=== PATIENT | female | born 1930 | race Caucasian/White ===

== ENCOUNTER 2019-01-18 17:27 | Emergency (ER) | payer MEDICARE, BC ==
--- NOTE | 2019-01-18 18:10 | EDM.PDOC ---
ED HPI GENERAL MEDICAL PROBLEM - General Chief Complaint: Respiratory Problem Stated Complaint: COUGH, GURGLING Time Seen by Provider: 01/18/19 17:40 Source of Information: Reports: Patient History Limitations: Reports: No Limitations - History of Present Illness INITIAL COMMENTS - FREE TEXT/NARRATIVE: She comes into the emergency department with complaints of "gurgling sounds in the chest". Patient states that she's had a cough over the course of last 2 days. She lives at [facility] and nursing had told her that they heard some crackles when they were listening yesterday. Patient decided today that she wanted to get checked out. She denies any fever, chest pain, increased shortness of breath, or increasing swelling in the extremities. Patient does have exertional shortness of breath which is a long-standing history for her. She states that is still consistent but there is no resting shortness of breath or increase in her baseline shortness of breath with exertion. She states that she does have a nonproductive cough and denies any chest discomfort when coughing. Onset: Gradual Quality: Reports: Other Severity: Mild Improves with: Reports: None Worsens with: Reports: None Associated Symptoms: Reports: No Other Symptoms - Related Data Allergies Allergy/AdvReac Type Severity Reaction Status Date / Time aloe vera Allergy Itching Verified 01/18/19 17:53 amlodipine besylate Allergy Other Verified 01/18/19 17:53 [From Norvasc] Sulfa (Sulfonamide Allergy Airway Verified 01/18/19 17:53 Antibiotics) Tightness terazosin Allergy Edema Verified 01/18/19 17:53 lidocaine HCl AdvReac Hypotension Verified 01/18/19 17:53 [From Xylocaine] moexipril HCl [From Univasc] AdvReac Cough Verified 01/18/19 17:53 morphine AdvReac Hypotension Verified 01/18/19 17:53 Home Meds: Home Meds RX: Acetaminophen [Tylenol] 325 mg PO Q4H PRN 12/30/15 [History] RX: Allopurinol 150 mg PO DAILY 12/30/15 [History] RX: Aspirin [Adult Low Dose Aspirin EC] 81 mg PO DAILY 12/30/15 [History] RX: Calcium Carbonate/Vitamin D3 [Calcium 600 + Vit D Tablet] 1 tab PO DAILY 04/08 [History] RX: Cholecalciferol (Vitamin D3) [Vitamin D3] 2,000 unit PO DAILY 12/30/15 [ History] RX: Famotidine [Pepcid] 20 mg PO BEDTIME 12/30/15 [History] RX: Montelukast [Singulair] 10 mg PO DAILY 12/30/15 [History] RX: Nitroglycerin [Nitrostat] 0.4 mg SL ASDIRECTED PRN 12/30/15 [History] RX: Propylene Glycol/Peg 400 [Systane 0.3-0.4% Eye Drops] 1 drop EYEBOTH BID 04/08 [History] RX: Simvastatin 1 tab PO BEDTIME 12/30/15 [History] RX: chlordiazePOXIDE/Clidinium [Librax 5-2.5 MG] 1 cap PO BID PRN 12/30/15 [ History] RX: Acetaminophen [Tylenol Arthritis] 650 mg PO BEDTIME 02/13/16 [History] RX: Albuterol/Ipratropium [Combivent Respimat] 2 puff IH QID PRN 02/13/16 [ History] RX: Bimatoprost [LUMIGAN 0.01% Ophth Soln] 1 drop EYEBOTH BEDTIME 02/14/16 [ History] RX: Spironolactone [Aldactone] 12.5 mg PO DAILY #30 tablet 02/15/16 [Rx] RX: Losartan [Cozaar] 100 mg PO DAILY 08/04/18 [History] RX: Apixaban [Eliquis] 5 mg PO BID 08/18/18 [History] RX: Metoprolol Tartrate [Lopressor] 50 mg PO BID 08/18/18 [History] RX: Potassium Chloride [Klor-Con 10] 10 meq PO DAILY #30 tab.er 08/21/18 [Rx] Digoxin [Digox] 1 tab PO DAILY 01/18/19 [History] Fluticasone Propionate [Flovent HFA] 2 puff INH BID 01/18/19 [History] Glucosamine/D3/Boswellia Franci [Osteo Bi-Flex Caplet] 1 cap PO DAILY 01/18/19 [ History] RX: Bumetanide [Bumex] 1 mg PO BID@0700,1400 PRN 01/18/19 [History] RX: Loperamide [Imodium AD] 2 cap PO ASDIRECTED PRN MDD 8 caps 01/18/19 [History ] Past Medical History HEENT History: Reports: Impaired Vision, Macular Degeneration Cardiovascular History: Reports: Heart Failure, Hypertension, [place], SOB on Exertion Respiratory History: Reports: Asthma, Other (See Below) Other Respiratory History: hypoxic with sleep Gastrointestinal History: Reports: Irritable Bowel Syndrome Musculoskeletal History: Reports: Osteoarthritis Psychiatric History: Reports: Anxiety Oncologic (Cancer) History: Reports: Other (See Below) Other Oncologic History: on her nose Dermatologic History: Reports: Other (See Below) Other Dermatologic History: hx of basal cell - Past Surgical History HEENT Surgical History: Reports: Cataract Surgery Cardiovascular Surgical History: Reports: Percutaneous Transluminal Angioplasty GI Surgical History: Reports: Appendectomy Neurological Surgical History: Reports: Other (See Below) Other Neurological Surgeries/Procedures: Spine surgury 1976 Musculoskeletal Surgical History: Reports: Knee Replacement Social & Family History - Family History Family Medical History: Noncontributory - Caffeine Use Caffeine Use: Reports: Coffee ED ROS GENERAL - Review of Systems Review Of Systems: See Below Constitutional: Denies: Chills, Weakness, Fatigue, Diaphoresis, Decreased Appetite HEENT: Reports: No Symptoms Respiratory: Reports: Cough Cardiovascular: Reports: No Symptoms Endocrine: Reports: No Symptoms GI/Abdominal: Reports: No Symptoms : Reports: No Symptoms Musculoskeletal: Reports: No Symptoms Skin: Reports: No Symptoms Neurological: Reports: No Symptoms Psychiatric: Reports: No Symptoms Hematologic/Lymphatic: Reports: No Symptoms Immunologic: Reports: No Symptoms ED EXAM, GENERAL - Physical Exam Exam: See Below Exam Limited By: No Limitations General Appearance: Alert, WD/WN, No Apparent Distress Throat/Mouth: Normal Inspection Head: Atraumatic, Normocephalic Neck: Normal Inspection, Supple, Non-Tender Respiratory/Chest: No Respiratory Distress, Lungs Clear, Normal Breath Sounds, No Accessory Muscle Use, Chest Non-Tender Cardiovascular: Normal Peripheral Pulses, Regular Rate, Rhythm Extremities: Normal Inspection, Normal Range of Motion, Normal Capillary Refill Neurological: Alert, Oriented Skin Exam: Warm, Dry, Intact, Normal Color Course - Vital Signs Last Recorded V/S: Last Vital Signs Temp 37.0 C 01/18/19 17:50 Pulse 66 01/18/19 17:50 Resp 16 01/18/19 17:50 BP 149/76 H 01/18/19 17:50 Pulse Ox 98 01/18/19 17:50 - Orders/Labs/Meds Orders: Active Orders 24 hr Category Date Time Status Cardiac Monitoring [RC] . DIRECTED Care 01/18/19 18:06 Active EKG Documentation Completion [RC] STAT Care 01/18/19 18:05 Active Chest 1V Frontal [CR] Stat Exams 01/18/19 18:06 Taken Labs: Laboratory Tests 01/18/19 01/18/19 01/18/19 Range/Units 18:17 18:17 18:17 WBC 7.3 (4.0-10.0) x10^3/uL RBC 4.30 (4.00-5.50) x10^6/uL Hgb 11.9 L (12.0-16.0) g/dL Hct 39.5 (33.0-47.0) % MCV 91.9 D (78.0-93.0) fL MCH 27.7 (26.0-32.0) pg MCHC 30.1 L (32.0-36.0) g/dL RDW Coeff of [place] 14.7 (10.0-15.0) % Plt Count 275 (130-400) x10^3/uL Neut % (Auto) 59.5 (50.0-80.0) % Lymph % (Auto) 25.8 (25.0-50.0) % [place] % (Auto) 10.1 (2.0-11.0) % Eos % (Auto) 4.2 H (0.0-4.0) % Baso % (Auto) 0.4 (0.2-1.2) % Sodium 140 (136-145) mmol/L Potassium 4.0 (3.5-5.1) mmol/L Chloride 101 (98-107) mmol/L Carbon Dioxide 29 (21-32) mmol/L Anion Gap 14.0 (10-20) mmol/L BUN 21 H (7-18) mg/dL Creatinine 1.3 H (0.55-1.02) mg/dL Est Cr Clr Drug Dosing 29.65 mL/min Estimated GFR (MDRD) 39 Glucose 108 H (74-106) mg/dL Lactic Acid 2.3 H* (0.4-2.0) mmol/L Calcium 8.5 (8.5-10.1) mg/dL Corrected Calcium 9.22 (8.5-10.1) mg/dL Total Bilirubin 0.5 (0.2-1.0) mg/dL AST 16 (15-37) U/L ALT 17 (14-59) U/L Alkaline Phosphatase 129 H (46-116) U/L Creatine Kinase 99 (26-192) U/L Troponin I 0.028 (<=0.056) ng/mL NT-Pro-B Natriuret Pep 3570 H (<=450) pg/mL Total Protein 7.6 (6.4-8.2) g/dL Albumin 3.1 L (3.4-5.0) g/dL Globulin 4.5 Albumin/Globulin Ratio 0.69 Meds: Medications Discontinued Medications Generic Name Dose Route Start Last Admin Trade Name Freq PRN Reason Stop Dose Admin Spironolactone 12.5 mg 01/18/19 19:05 Aldactone PO 01/18/19 19:06 ONETIME ONE Departure - Departure Time of Disposition: 19:25 Disposition: Home, Self-Care 01 Condition: Good 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 rest 2. limit amount of liquids 3. increase your spironolactone to 25mg daily tomorrow and follow up with PCP on Sunday for exterminator termite adjustment if need be 4. Return if you develop SOB above your baseline or begin to have chest pain 5. Activity and diet as tolerated 6. Call with any questions or concerns - Problem List Review Problem List Initiated/Reviewed/Updated: Yes - My Orders Last 24 Hours: My Active Orders 01/18/19 18:05 EKG Documentation Completion [RC] STAT 01/18/19 18:06 Cardiac Monitoring [RC] . DIRECTED Chest 1V Frontal [CR] Stat - Assessment/Plan Last 24 Hours: My Active Orders 01/18/19 18:05 EKG Documentation Completion [RC] STAT 01/18/19 18:06 Cardiac Monitoring [RC] . DIRECTED Chest 1V Frontal [CR] Stat Assessment:: 1. cough 2. fluid overload Plan: 1. chest xray completed in ER- negative findings 2. labs completed in ER. 3. EKG completed in ER. -A. fib with mediation management on board 4. Patient does not want to be admitted into the hospital and wants to go back to the shelter. Will increase her dose of spironolactone and have her follow up with her PCP on Sunday for exterminator termite management. 5. Did discuss the risk of not being admitted and monitored for fluid overload. Pt is aware and would like to be discharged home. 6. All questions and concerns were addressed prior to discharge.
[2019-01-18 18:57] VITALS: BP 149/76
[2019-01-18] MEDS ORDERED: Spironolactone 25 MG Tab PO ONE (19:05)
--- NOTE | 2019-01-19 10:09 | CR ---
[id number] RAD/RAD Chest PA or AP 1V EXAM: RAD Chest PA or AP 1V INDICATION: SHORTNESS OF BREATH COMPARISON: 08/18/2018. DISCUSSION: Cardiomediastinal silhouette is increased in size and contour. No infiltrate, effusion, pneumothorax, or edema. Pulmonary hyperinflation. IMPRESSION: No acute cardiopulmonary abnormality. Ángel Cummings DO 01/19/19 1008 Thank you for allowing us to participate in the care of your patient.
== END 2019-01-18 19:30 | disposition home or self-care (01) ==
LOC: SUPCPDRO 17:27 → VM.ED 17:27
DX: E87.79 Other fluid overload (principal); Q24.9 Congenital malformation of heart, unspecified; I11.0 Hypertensive heart disease with heart failure; I50.9 Heart failure, unspecified; M19.90 Unspecified osteoarthritis, unspecified site; Z90.49 Acquired absence of other specified parts of digestive tract; Z98.49 Cataract extraction status, unspecified eye; Z88.2 Allergy status to sulfonamides; Z88.5 Allergy status to narcotic agent; Z88.8 Allergy status to other drugs, medicaments and biological substances; Z79.82 Long term (current) use of aspirin; Z79.899 Other long term (current) drug therapy
CPT/HCPCS: 36415; 71045; 80053; 82550; 83605; 83880; 84484; 85025; 93005; 99284; A9270

== ENCOUNTER 2019-02-15 15:58 | Emergency (ER) | payer MEDICARE, BC ==
[2019-02-15] MEDS ORDERED: Take Home: Phenazopyridine 95 MG Tab, 4 Tab Pack ONE (16:13)
--- NOTE | 2019-02-15 16:28 | EDM.PDOC ---
ED HPI GENERAL MEDICAL PROBLEM - General Stated Complaint: UNABLE TO URINATE Time Seen by Provider: 02/15/19 15:58 Source of Information: Reports: Patient History Limitations: Reports: No Limitations - History of Present Illness INITIAL COMMENTS - FREE TEXT/NARRATIVE: Pt. presents to ER with complaints of dysuria. She is currently on Macrobid for UTI (is on her second dose of a 5 day supply). She is concerned because she is continuing to experience frequency, dysuria, and urgency. She states that the symptoms have not gotten any worse, but they are not going away. Denies any lightheadedness, chest pain, shortness of breath, weakness, lightheadedness, or abdominal pain. Her only other complaint is that of some mild low back pain. Onset Date: 02/14/19 - Related Data Allergies Allergy/AdvReac Type Severity Reaction Status Date / Time aloe vera Allergy Itching Verified 01/18/19 17:53 amlodipine besylate Allergy Other Verified 01/18/19 17:53 [From Norvasc] Sulfa (Sulfonamide Allergy Airway Verified 01/18/19 17:53 Antibiotics) Tightness terazosin Allergy Edema Verified 01/18/19 17:53 lidocaine HCl AdvReac Hypotension Verified 01/18/19 17:53 [From Xylocaine] moexipril HCl [From Univasc] AdvReac Cough Verified 01/18/19 17:53 morphine AdvReac Hypotension Verified 01/18/19 17:53 Home Meds: Home Meds Acetaminophen [Tylenol] 325 mg PO Q4H PRN 12/30/15 [History] Allopurinol 150 mg PO DAILY 12/30/15 [History] Aspirin [Adult Low Dose Aspirin EC] 81 mg PO DAILY 12/30/15 [History] Calcium Carbonate/Vitamin D3 [Calcium 600 + Vit D Tablet] 1 tab PO DAILY [History] Cholecalciferol (Vitamin D3) [Vitamin D3] 2,000 unit PO DAILY 12/30/15 [History] Famotidine [Pepcid] 20 mg PO BEDTIME 12/30/15 [History] Montelukast [Singulair] 10 mg PO DAILY 12/30/15 [History] Nitroglycerin [Nitrostat] 0.4 mg SL ASDIRECTED PRN 12/30/15 [History] Propylene Glycol/Peg 400 [Systane 0.3-0.4% Eye Drops] 1 drop EYEBOTH BID [History] Simvastatin 1 tab PO BEDTIME 12/30/15 [History] chlordiazePOXIDE/Clidinium [Librax 5-2.5 MG] 1 cap PO BID PRN 12/30/15 [History] Acetaminophen [Tylenol Arthritis] 650 mg PO BEDTIME 02/13/16 [History] Albuterol/Ipratropium [Combivent Respimat] 2 puff IH QID PRN 02/13/16 [History] Bimatoprost [LUMIGAN 0.01% Ophth Soln] 1 drop EYEBOTH BEDTIME 02/14/16 [History] Spironolactone [Aldactone] 12.5 mg PO DAILY #30 tablet 02/15/16 [Rx] Losartan [Cozaar] 100 mg PO DAILY 08/04/18 [History] Apixaban [Eliquis] 5 mg PO BID 08/18/18 [History] Metoprolol Tartrate [Lopressor] 50 mg PO BID 08/18/18 [History] Potassium Chloride [Klor-Con 10] 10 meq PO DAILY #30 tab.er 08/21/18 [Rx] Bumetanide [Bumex] 1 mg PO BID@0700,1400 PRN 01/18/19 [History] Digoxin [Digox] 1 tab PO DAILY 01/18/19 [History] Fluticasone Propionate [Flovent HFA] 2 puff INH BID 01/18/19 [History] Glucosamine/D3/Boswellia Franci [Osteo Bi-Flex Caplet] 1 cap PO DAILY 01/18/19 [ History] Loperamide [Imodium AD] 2 cap PO ASDIRECTED PRN MDD 8 caps 01/18/19 [History] Past Medical History HEENT History: Reports: Impaired Vision, Macular Degeneration Cardiovascular History: Reports: Heart Failure, Hypertension, [place], SOB on Exertion Respiratory History: Reports: Asthma, Other (See Below) Other Respiratory History: hypoxic with sleep Gastrointestinal History: Reports: Irritable Bowel Syndrome Musculoskeletal History: Reports: Osteoarthritis Psychiatric History: Reports: Anxiety Oncologic (Cancer) History: Reports: Other (See Below) Other Oncologic History: on her nose Dermatologic History: Reports: Other (See Below) Other Dermatologic History: hx of basal cell - Past Surgical History HEENT Surgical History: Reports: Cataract Surgery Cardiovascular Surgical History: Reports: Percutaneous Transluminal Angioplasty GI Surgical History: Reports: Appendectomy Neurological Surgical History: Reports: Other (See Below) Other Neurological Surgeries/Procedures: Spine surgury 1977 Musculoskeletal Surgical History: Reports: Knee Replacement Social & Family History - Family History Family Medical History: Noncontributory - Caffeine Use Caffeine Use: Reports: Coffee ED ROS GENERAL - Review of Systems Review Of Systems: See Below Constitutional: Reports: No Symptoms HEENT: Reports: No Symptoms Respiratory: Reports: No Symptoms Cardiovascular: Reports: No Symptoms Endocrine: Reports: No Symptoms GI/Abdominal: Reports: No Symptoms : Reports: Dysuria, Frequency, Urgency Musculoskeletal: Reports: No Symptoms Skin: Reports: No Symptoms Neurological: Reports: No Symptoms Psychiatric: Reports: No Symptoms Hematologic/Lymphatic: Reports: No Symptoms Immunologic: Reports: No Symptoms ED EXAM, GENERAL - Physical Exam Exam: See Below Exam Limited By: No Limitations General Appearance: Alert, WD/WN, No Apparent Distress Peripheral Pulses: 3+: Radial (L) GI/Abdominal: Soft, Non-Tender, No Mass (Female) Exam: Deferred Rectal (Female) Exam: Deferred Back Exam: Normal Inspection, Full Range of Motion Neurological: Alert, Oriented, CN II-XII Intact, Normal Cognition, Normal Reflexes, No Motor/Sensory Deficits Skin Exam: Warm, Dry, Intact Course - Orders/Labs/Meds Orders: Active Orders 24 hr Category Date Time Status Bladder Scan [RC] ASDIRECTED Care 02/15/19 16:00 Active Meds: Medications Discontinued Medications Generic Name Dose Route Start Last Admin Trade Name [place] PRN Reason Stop Dose Admin Phenazopyridine HCl 2 packet 02/15/19 16:13 Take Home: Phenazopyridine, 4 Tab Pack .XX 02/15/19 16:14 ONETIME ONE - Re-Assessments/Exams Free Text/Narrative Re-Assessment/Exam: 02/15/19 16:29 Bladder scan showed only 50 ml of urine in bladder. Departure - Departure Time of Disposition: 16:29 Disposition: Home, Self-Care 01 Clinical Impression: UTI (urinary tract infection) - Discharge Information Instructions: Urinary Tract Infection, Adult, Dysuria Referrals: Beba Anderson, [Primary Care Provider] - Additional Instructions: Continue with the macrobid Start pyridium 100mg three times daily. You only need to take this until Sunday morning, but that time the antibiotic will be working. Return to ER if your symptoms aren't gradually improving. - Problem List Review Problem List Initiated/Reviewed/Updated: Yes - My Orders Last 24 Hours: My Active Orders 02/15/19 16:00 Bladder Scan [RC] ASDIRECTED - Assessment/Plan Last 24 Hours: My Active Orders 02/15/19 16:00 Bladder Scan [RC] ASDIRECTED Plan: Continue with the macrobid Start pyridium 100mg three times daily. You only need to take this until Sunday, but that time the antibiotic will be working. Return to ER if your symptoms aren't gradually improving.
[2019-02-15 17:11] VITALS: BP 141/45
== END 2019-02-15 16:35 | disposition home or self-care (01) ==
LOC: VM.ED 15:58
DX: N39.0 Urinary tract infection, site not specified (principal); I11.0 Hypertensive heart disease with heart failure; I50.9 Heart failure, unspecified; F41.9 Anxiety disorder, unspecified; Z79.82 Long term (current) use of aspirin; Z79.899 Other long term (current) drug therapy; Z88.2 Allergy status to sulfonamides; Z88.5 Allergy status to narcotic agent; Z88.8 Allergy status to other drugs, medicaments and biological substances; Z91.09 Other allergy status, other than to drugs and biological substances
CPT/HCPCS: 51798; 99283; A9270

== ENCOUNTER 2019-05-29 07:04 | Inpatient (IN) | payer MEDICARE, BC ==
[2019-05-29] MEDS ORDERED: Sodium Chloride 0.9% 10 ML Syringe FLUSH PRN (07:26)
--- NOTE | 2019-05-29 07:37 | EDM.PDOC ---
ED HPI GENERAL MEDICAL PROBLEM - General Stated Complaint: DISTRESSED BREATHING Time Seen by Provider: 05/29/19 07:20 Source of Information: Reports: Patient - History of Present Illness INITIAL COMMENTS - FREE TEXT/NARRATIVE: Pt presents with c/o increased work of breathing started at 0300 this am. Pt with long history of COPD / CHF /A fib. Pt is resting in no distress at this time. Onset: Today Improves with: Reports: None Worsens with: Reports: None Associated Symptoms: Reports: Shortness of Breath - Related Data Allergies Allergy/AdvReac Type Severity Reaction Status Date / Time aloe vera Allergy Itching Verified 05/29/19 09:58 amlodipine besylate Allergy Other Verified 05/29/19 09:58 [From Norvasc] Sulfa (Sulfonamide Allergy Airway Verified 05/29/19 09:58 Antibiotics) Tightness terazosin Allergy Edema Verified 05/29/19 09:58 lidocaine HCl AdvReac Hypotension Verified 05/29/19 09:58 [From Xylocaine] moexipril HCl [From Univasc] AdvReac Cough Verified 05/29/19 09:58 morphine AdvReac Hypotension Verified 05/29/19 09:58 Home Meds: Home Meds Acetaminophen [Tylenol] 325 mg PO Q4H PRN 12/30/15 [History] Allopurinol 150 mg PO DAILY 12/30/15 [History] Aspirin [Adult Low Dose Aspirin EC] 81 mg PO DAILY 12/30/15 [History] Calcium Carbonate/Vitamin D3 [Calcium 600 + Vit D Tablet] 1 tab PO DAILY [History] Famotidine [Pepcid] 20 mg PO BEDTIME 12/30/15 [History] Montelukast [Singulair] 10 mg PO DAILY 12/30/15 [History] Nitroglycerin [Nitrostat] 0.4 mg SL ASDIRECTED PRN 12/30/15 [History] Propylene Glycol/Peg 400 [Systane 0.3-0.4% Eye Drops] 1 drop EYEBOTH BID [History] Simvastatin 20 mg PO BEDTIME 12/30/15 [History] Acetaminophen [Tylenol Arthritis] 650 mg PO BEDTIME 02/13/16 [History] Albuterol/Ipratropium [Combivent Respimat] 2 puff IH QID PRN 02/13/16 [History] Bimatoprost [LUMIGAN 0.01% Ophth Soln] 1 drop EYEBOTH BEDTIME 02/14/16 [History] Spironolactone [Aldactone] 12.5 mg PO DAILY #30 tablet 02/15/16 [Rx] Losartan [Cozaar] 100 mg PO DAILY 08/04/18 [History] Apixaban [Eliquis] 5 mg PO BID 08/18/18 [History] Metoprolol Tartrate [Lopressor] 50 mg PO BID 08/18/18 [History] Potassium Chloride [Klor-Con 10] 10 meq PO DAILY #30 tab.er 08/21/18 [Rx] Bumetanide [Bumex] 1 mg PO BID@0700,1400 PRN 01/18/19 [History] Digoxin [Digox] 0.125 mg PO DAILY 01/18/19 [History] Fluticasone Propionate [Flovent HFA] 2 puff INH BID 01/18/19 [History] Glucosamine/D3/Boswellia Franci [Osteo Bi-Flex Caplet] 1 cap PO DAILY 01/18/19 [ History] Loperamide [Imodium AD] 2 cap PO ASDIRECTED PRN MDD 8 caps 01/18/19 [History] Cholecalciferol (Vitamin D3) [Vitamin D3] 2,000 unit PO DAILY 05/29/19 [History] guaiFENesin [Mucinex] 600 mg PO BID PRN 05/29/19 [History] Past Medical History HEENT History: Reports: Impaired Vision, Macular Degeneration Cardiovascular History: Reports: Heart Failure, Hypertension, NE, SOB on Exertion Respiratory History: Reports: Asthma, Other (See Below) Other Respiratory History: hypoxic with sleep Gastrointestinal History: Reports: Irritable Bowel Syndrome Musculoskeletal History: Reports: Osteoarthritis Psychiatric History: Reports: Anxiety Oncologic (Cancer) History: Reports: Other (See Below) Other Oncologic History: on her nose Dermatologic History: Reports: Other (See Below) Other Dermatologic History: hx of basal cell - Past Surgical History HEENT Surgical History: Reports: Cataract Surgery Cardiovascular Surgical History: Reports: Percutaneous Transluminal Angioplasty GI Surgical History: Reports: Appendectomy Neurological Surgical History: Reports: Other (See Below) Other Neurological Surgeries/Procedures: Spine surgury 1976 Musculoskeletal Surgical History: Reports: Knee Replacement Social & Family History - Family History Family Medical History: Noncontributory - Caffeine Use Caffeine Use: Reports: Coffee ED ROS GENERAL - Review of Systems Review Of Systems: See Below Constitutional: Reports: No Symptoms HEENT: Reports: No Symptoms Respiratory: Reports: Shortness of Breath, Other (fine crackles in the base bilat ) Cardiovascular: Reports: No Symptoms Endocrine: Reports: No Symptoms GI/Abdominal: Reports: No Symptoms : Reports: No Symptoms Musculoskeletal: Reports: No Symptoms Skin: Reports: No Symptoms ED EXAM, GENERAL - Physical Exam Exam: See Below Free Text/Narrative:: Pt presents to the er in no acute distress, elevated RR increased work of breathing noted. fine crackles in the base bilat noted on exam, labs noted elevated bnp, ekg, A fiv with pvc, chest x ray noted pulmonary congestion with small pleural effusions bilaterally. Pt given 80 mg solumedrol and 20 mg lasix in the er. WOB improved. pt states she is able to speak in full sentences after medication. General Appearance: Alert, WD/WN, Mild Distress Eye Exam: Bilateral Eye: Normal Inspection Ears: Normal External Exam, Normal Canal Nose: Normal Inspection Head: Atraumatic, Normocephalic Neck: Normal Inspection, Supple, Non-Tender Respiratory/Chest: Crackles, Accessory Muscle Use, Other (fine crackles in the base bilat ) Cardiovascular: Normal Peripheral Pulses, Other (eks noted a fib rate of 86 ) GI/Abdominal: Normal Bowel Sounds, Soft, Non-Tender Neurological: Alert Psychiatric: Normal Affect, Normal Mood Skin Exam: Warm, Dry, Intact Course - Vital Signs Last Recorded V/S: Last Vital Signs Temp 37.0 C 05/29/19 10:07 Pulse 86 05/29/19 10:07 Resp 24 H 05/29/19 10:07 BP 135/54 L 05/29/19 10:07 Pulse Ox 86 L 05/29/19 10:07 - Orders/Labs/Meds Orders: Active Orders 24 hr Category Date Time Status Admission Status [Patient Status] [ADT] Routine ADT 05/29/19 10:19 Active Cardiac Monitoring [RC] . DIRECTED Care 05/29/19 10:19 Active EKG Documentation Completion [RC] STAT Care 05/29/19 07:26 Active Supplemental O2 [Oxygen Therapy, ED] [RC] ASDIRECTED Care 05/29/19 07:26 Active Sodium Chloride 0.9% [Saline Flush] Med 05/29/19 07:26 Active 10 ml FLUSH ASDIRECTED PRN Peripheral IV Insertion Adult [OM.PC] Routine Oth 05/29/19 07:26 Ordered Medication Orders Sodium Chloride (Saline Flush) 10 ml FLUSH ASDIRECTED PRN PRN Reason: Keep Vein Open Labs: Laboratory Tests 05/29/19 05/29/19 05/29/19 Range/Units 07:30 07:30 07:30 WBC 7.2 (4.0-10.0) x10^3/uL RBC 4.21 (4.00-5.50) x10^6/uL Hgb 11.8 L (12.0-16.0) g/dL Hct 37.7 (33.0-47.0) % MCV 89.5 (78.0-93.0) fL MCH 28.0 (26.0-32.0) pg MCHC 31.3 L (32.0-36.0) g/dL RDW Coeff of [place] 15.0 (10.0-15.0) % Plt Count 240 (130-400) x10^3/uL Neut % (Auto) 59.9 (50.0-80.0) % Lymph % (Auto) 26.2 (25.0-50.0) % [place] % (Auto) 8.8 (2.0-11.0) % Eos % (Auto) 4.7 H (0.0-4.0) % Baso % (Auto) 0.4 (0.2-1.2) % Sodium 139 (136-145) mmol/L Potassium 4.1 (3.5-5.1) mmol/L Chloride 103 (98-107) mmol/L Carbon Dioxide 26 (21-32) mmol/L Anion Gap 14.1 (10-20) mmol/L BUN 16 (7-18) mg/dL Creatinine 1.1 H (0.55-1.02) mg/dL Est Cr Clr Drug Dosing TNP Estimated GFR (MDRD) 47 Glucose 118 H (74-106) mg/dL Calcium 8.6 (8.5-10.1) mg/dL Troponin I < 0.017 (<=0.056) ng/mL NT-Pro-B Natriuret Pep 4238 H (<=450) pg/mL Meds: Medications Generic Name Dose Route Start Last Admin Trade Name Freq PRN Reason Stop Dose Admin Sodium Chloride 10 ml 05/29/19 07:26 Saline Flush FLUSH ASDIRECTED PRN Keep Vein Open Discontinued Medications Generic Name Dose Route Start Last Admin Trade Name Freq PRN Reason Stop Dose Admin Furosemide 20 mg 05/29/19 09:26 05/29/19 09:47 Lasix IV 05/29/19 09:27 20 mg ONETIME ONE Administration Methylprednisolone Sodium Succinate 80 mg 05/29/19 08:18 05/29/19 09:44 Solu-Medrol IVPUSH 05/29/19 08:19 80 mg ONETIME ONE Administration Departure - Departure Time of Disposition: 10:28 Disposition: Admitted As Inpatient 67 Condition: Good Clinical Impression: CHF (congestive heart failure) Qualifiers: Qualified Code(s): I50.9 - Heart failure, unspecified - Discharge Information - My Orders Last 24 Hours: My Active Orders 05/29/19 07:26 EKG Documentation Completion [RC] STAT Supplemental O2 [Oxygen Therapy, ED] [RC] ASDIRECTED Sodium Chloride 0.9% [Saline Flush] 10 ml FLUSH ASDIRECTED PRN Peripheral IV Insertion Adult [OM.PC] Routine 05/29/19 10:19 Admission Status [Patient Status] [ADT] Routine Cardiac Monitoring [RC] . DIRECTED - Assessment/Plan Last 24 Hours: My Active Orders 05/29/19 07:26 EKG Documentation Completion [RC] STAT Supplemental O2 [Oxygen Therapy, ED] [RC] ASDIRECTED Sodium Chloride 0.9% [Saline Flush] 10 ml FLUSH ASDIRECTED PRN Peripheral IV Insertion Adult [OM.PC] Routine 05/29/19 10:19 Admission Status [Patient Status] [ADT] Routine Cardiac Monitoring [RC] . DIRECTED
[2019-05-29 08:07] LABS: ANION GAP 14.1 mmol/L (10-20); CHLORIDE,CL 103 mmol/L (98-107); SODIUM,NA 139 mmol/L (136-145)
[2019-05-29] MEDS ORDERED: methylPREDNISolone Sodium Succinate 125 MG/2 ML SDV IVPUSH ONE (08:18)
--- NOTE | 2019-05-29 08:57 | CR ---
[id number] RAD/RAD Chest PA And Lateral EXAM: RAD Chest PA And Lateral CLINICAL DATA: SHORTNESS OF BREATH COMPARISON: CORRELATION IS MADE WITH THE EXAM OF JANUARY 18, 2019 FINDINGS: There appears to be moderate pulmonary edema The cardiomediastinal contour is stable There are small bilateral effusions There is heavy carotid calcification IMPRESSION: MODERATE CHF Lex Muniz MD 05/29/19 0855 Thank you for allowing us to participate in the care of your patient.
[2019-05-29] MEDS ORDERED: Furosemide 20 MG/2 ML VIAL IV ONE (09:26)
[2019-05-29] MEDS: Furosemide 20 MG/2 ML VIAL IV SCH ×2 (12:06→15:38)
[2019-05-29] MEDS ORDERED: Nitroglycerin 0.4 MG Tab.SL SL PRN (16:28)
[2019-05-29] MEDS ORDERED: Albuterol/Ipratropium 3.0-0.5 MG/3 ML Neb Soln INH PRN (16:45)
[2019-05-29] MEDS: Latanoprost 0.005% Ophth Soln 2.5 ML Bottle EYEBOTH SCH (19:22)
[2019-05-29] MEDS: Acetaminophen 650 MG Tab.ER PO SCH (19:23)
[2019-05-29] MEDS: Apixaban 2.5 MG Tab PO SCH (19:23)
[2019-05-29] MEDS: Mometasone Furoate Powder 220 MCG/Puff 14 Dose Inhaler INH SCH (19:23)
[2019-05-29] MEDS: Famotidine 20 MG Tab PO SCH (19:23)
[2019-05-29] MEDS: Simvastatin 20 MG Tab PO SCH (19:24)
[2019-05-29] MEDS: Metoprolol Tartrate 50 MG Tab PO SCH (19:24)
[2019-05-29] MEDS: Dextran 70/Hypromellose/PF Ophth Soln 0.9 ML UD EYEBOTH SCH (19:24)
--- NOTE | 2019-05-29 23:27 | HP ---
CHIEF COMPLAINT: Shortness of breath. HISTORY OF PRESENT ILLNESS: This is an 88-year-old female with known history of heart failure, diabetes, hypertension, coronary artery disease, EF 45% in 07/2018, and atrial fibrillation, who comes into the ER this morning after waking up during the night and feeling more short of breath. She got up to use the bathroom. She actually had reported that her weight had been going up and she had more breathing trouble in the last 3 days. It was 151 last night and 153 this morning. She at no time had any chest pain. She is already on 3 L of oxygen at night, but none during the day. She also has a history of asthma but has not been coughing. No fever, no chills. She states that she just sort of "filled with fluid." This has happened to her before. She is on Bumex 0.5 mg daily. She has not taken any extra doses. She was given 20 mg of IV Lasix in the ER; it is working quite well. She is urinating quite a bit. She also got some Solu-Medrol. ALLERGIES: Her allergy list includes aloe vera; morphine, feels like blood pressure dropped; Norvasc, causes leg swelling, morphine, low BP, sulfa, terazosin, Univasc, cough; and Xylocaine caused low blood pressure. MEDICATIONS: Her medication list is reviewed. She is at [facility]. Losartan 100 mg daily, allopurinol 150 daily, Singulair 10 mg daily, Aldactone 12.5 daily, MiraLAX 1 packet daily, but cut back to every other day of diarrhea, Bumex 0.5 at 7 a.m. and 0.5 in the afternoon if needed, Flovent, digoxin 125 daily, Zocor 20 mg at bedtime, Imodium 2 mg after loose stools, Pepcid 20 mg in the evening, aspirin 81 mg daily, vitamin D 2000 units daily, Osteo Bi-Flex, Tylenol, nitroglycerin p.r.n., potassium 10 mEq daily, Eliquis 5 mg twice daily, Lopressor 50 mg b.i.d., Combivent inhaler as needed, [place] eyedrops, Systane, and calcium and vitamin D. PAST MEDICAL HISTORY: Includes diastolic heart failure, EF 45%, 07/2018, admission to [place] at that time. The patient presented also with atrial fibrillation at that time and has been anticoagulated with Eliquis. 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 PAST SURGICAL HISTORY: That knee replacement as stated above. She has also had eye surgeries, tonsillectomy, spine surgery, cataract surgery, appendectomy. SOCIAL HISTORY: The patient is . She lives at assisted living. She has many children who live locally. She does not smoke or drink. FAMILY HISTORY: Both parents are . Both parents had heart failure. REVIEW OF SYSTEMS: General: She has not had any fever or chills. HEENT: No trouble swallowing. Cardiac: No chest pain. No palpitations. Respiratory: As stated in HPI. Otherwise, all systems reviewed and found to be negative unless otherwise stated. PHYSICAL EXAMINATION: Vital Signs: Include a weight of 67.6 up on the floor, 68.9 in the ER; temperature 98.1; pulse 95; blood pressure 138/87; respiratory rate 20; and O2 of 96% on 2 L, but 86% on room air. General: She is in no acute distress. Heart: Irregularly irregular with murmur. Lungs: Lung sounds are decreased with crackles in both bases. Abdomen: Positive bowel sounds. Soft and nontender. Extremities: Warm and dry. No edema. Mental Status: She is alert. She is orientated x3. LABORATORY DATA: Lab work did show white count normal at 7.2, hemoglobin 11.8, and platelets 240. Sodium 139, potassium 4.1, chloride 103, bicarb 26, BUN 16, creatinine 1.1, glucose 118, magnesium 1.8. Troponin negative. ProBNP 4238. EKG showed atrial fibrillation, left axis deviation, poor R-wave progression, all present on her previous EKG. Chest x-ray showed pulmonary edema. ASSESSMENT AND PLAN: 1. Acute on chronic diastolic heart failure exacerbation with known ejection fraction of 45% in 07/2018. 2. Dyspnea, probably due to heart failure as well as pulmonary hypertension. She is fully anticoagulated. I do not feel she has a deep venous thrombosis or pulmonary embolism. We will repeat her troponin. 3. Coronary artery disease. She has been on aspirin without any chest pain. I am going to hold ASA currently as she is also on Eliquis. If no bleeding problems, we will likely discharge her on it. 4. Asthma, moderate, persistent. I do not feel she is having an exacerbation. She already got 80 of Solu-Medrol. No further steroids ordered. 5. Diet-controlled diabetes. We will do q.i.d. Accu-Chek just due to getting the Solu-Medrol. We will discontinue them if they are acceptable. 6. For all her other chronic comorbidities, we will continue her home medications. 7. For deep venous thrombosis prophylaxis, she is therapeutically anticoagulated. We will repeat lab work tomorrow. TU: 05/29/2019 16:34:42 MODL: 05/29/2019 23:23:30 /[id number] MTDD
[2019-05-30 07:13] LABS: ANION GAP 13.8 mmol/L (10-20)
[2019-05-30] MEDS: Losartan 50 MG Tab PO SCH (08:06)
[2019-05-30] MEDS: Dextran 70/Hypromellose/PF Ophth Soln 0.9 ML UD EYEBOTH SCH ×2 (08:06→19:47)
[2019-05-30] MEDS: Metoprolol Tartrate 50 MG Tab PO SCH ×2 (08:08→19:53)
[2019-05-30] MEDS: Spironolactone 25 MG Tab PO SCH (08:09)
[2019-05-30] MEDS: Montelukast 10 MG Tab PO SCH (08:10)
[2019-05-30] MEDS: Digoxin 125 MCG Tab PO SCH (08:10)
[2019-05-30] MEDS: Potassium Chloride 10 MEQ Tab.ER PO SCH (08:11)
[2019-05-30] MEDS: Apixaban 2.5 MG Tab PO SCH ×2 (08:12→19:47)
[2019-05-30] MEDS: Cholecalciferol (Vitamin D3) 25 MCG Tab PO SCH (08:12)
[2019-05-30] MEDS: Allopurinol 300 MG Tab PO SCH (08:12)
[2019-05-30] MEDS: Calcium Carbonate/Vitamin D3 1250 MG-200 Unit Tab PO SCH (08:12)
[2019-05-30] MEDS: Furosemide 20 MG/2 ML VIAL IV SCH (08:13)
[2019-05-30] MEDS: Mometasone Furoate Powder 220 MCG/Puff 14 Dose Inhaler INH SCH ×2 (08:14→19:48)
--- NOTE | 2019-05-30 16:40 | PN ---
Progress Note for PARAG DAVIS Date: 05/30/2019 Room #: VM.204 SUBJECTIVE: This is hospital day #2 on an 88-year-old admitted with acute-on- chronic diastolic heart failure exacerbation. Her fluid is down 1.7 L. She is breathing much better, but when she got up to go to the bathroom, even with help, her legs felt weak. She is not having any chest pain. She has been having some faster heart rates on telemetry going up into the 140s even, but that is quite brief, but consistently running 100 to 110. She otherwise does use oxygen at night. She is down to 1 L now during the day, but it does not use oxygen at home during the day. She did receive a total of 60 mg of IV Lasix yesterday. She got her IV Lasix this morning. OBJECTIVE: Vital Signs: Her temperature is 97.8, pulse 97, blood pressure 139/68, weight 67.7 kg, O2 of 96% on 1 L, respiratory rate 16. General: She is in no acute distress. Heart: Irregularly irregular with murmur noted. Lungs: Lung sounds are much more clear to auscultation today. No wheezing appreciated. Abdomen: Positive bowel sounds. Soft, nondistended, nontender. Extremities: Warm and dry. No edema appreciated. Mental Status: She is alert. She is orientated x3. LABORATORY DATA: Lab work reviewed. White count normal 5.8, hemoglobin 11.1, platelets 247. Sodium 139, potassium 3.8, chloride 108, bicarb 28, BUN 27, creatinine 1.3. Glucose 145, high reading was 235. Troponin negative x2. ASSESSMENT: 1. [id number]-ly-[id number] diastolic heart failure exacerbation. EF 45%, 07/2018, improving. We will hold off on any further IV Lasix. Repeat lab work tomorrow. 2. Dyspnea, likely multifactorial. This has improved. 3. Leg weakness. The patient probably just has not adjusted to her diuresis. We will get her up and working with therapies. 4. Coronary artery disease. She has not had any chest pain. 5. Atrial fibrillation with rapid ventricular response. We will continue to monitor with telemetry. She is on digoxin and a beta-serenity. I am going to hold off on making any changes due to lower blood pressures. 6. Asthma, moderate, persistent. She does not require any further steroids. 7. Diet-controlled diabetes. Blood sugars are now improved. We will stop Accu-Cheks. 8. Deep vein thrombosis prophylaxis. She is on therapeutic anticoagulation for her atrial fibrillation. PLAN: At this point, the patient will continue to be on acute cares with telemetry monitoring. We will repeat lab work in the morning as her creatinine did go up slightly to 1.3. Anticipate she will need at least another night and potentially even swing bed. MKA: 05/30/2019 15:51:00 MODL: 05/30/2019 16:36:17 /[id number]
[2019-05-30] MEDS: Latanoprost 0.005% Ophth Soln 2.5 ML Bottle EYEBOTH SCH (19:46)
[2019-05-30] MEDS: Acetaminophen 325 MG Tab PO PRN (19:47)
[2019-05-30] MEDS: Simvastatin 20 MG Tab PO SCH (19:47)
[2019-05-30] MEDS: Famotidine 20 MG Tab PO SCH (19:47)
[2019-05-30] MEDS: Acetaminophen 650 MG Tab.ER PO SCH (19:56)
[2019-05-31] MEDS: Acetaminophen 325 MG Tab PO PRN (05:34)
[2019-05-31] MEDS: Apixaban 2.5 MG Tab PO SCH ×2 (07:37→20:20)
[2019-05-31] MEDS: Potassium Chloride 10 MEQ Tab.ER PO SCH ×3 (07:38→20:21)
[2019-05-31] MEDS: Metoprolol Tartrate 50 MG Tab PO SCH (07:38)
[2019-05-31] MEDS: Digoxin 125 MCG Tab PO SCH ×2 (07:38→11:43)
[2019-05-31] MEDS: Cholecalciferol (Vitamin D3) 25 MCG Tab PO SCH (07:38)
[2019-05-31] MEDS: Spironolactone 25 MG Tab PO SCH (07:40)
[2019-05-31] MEDS: Montelukast 10 MG Tab PO SCH (07:40)
[2019-05-31] MEDS: Losartan 50 MG Tab PO SCH (07:40)
[2019-05-31] MEDS: Calcium Carbonate/Vitamin D3 1250 MG-200 Unit Tab PO SCH (07:40)
[2019-05-31] MEDS: Dextran 70/Hypromellose/PF Ophth Soln 0.9 ML UD EYEBOTH SCH ×2 (07:41→20:21)
[2019-05-31] MEDS: Allopurinol 300 MG Tab PO SCH (07:41)
[2019-05-31] MEDS: Mometasone Furoate Powder 220 MCG/Puff 14 Dose Inhaler INH SCH ×2 (07:42→20:23)
[2019-05-31] MEDS ORDERED: Furosemide 20 MG/2 ML VIAL IV SCH (08:00)
[2019-05-31 08:02] LABS: ANION GAP 11.6 mmol/L (10-20)
[2019-05-31] MEDS ORDERED: Furosemide 20 MG/2 ML VIAL IV ONE (08:39)
[2019-05-31] MEDS ORDERED: Metoprolol Tartrate 25 MG Tab PO ONE (09:00)
--- NOTE | 2019-05-31 09:29 | PN ---
Progress Note for PARAG DÍAZ Date: 05/31/2019 Room #: .204 SUBJECTIVE: This is hospital day #3 on an 88-year-old, Parag Díaz, admitted with CHF exacerbation. She was doing quite well. Then around 5 a.m., she woke up very short of breath, sounds like she was orthopneic. Her heart was racing. Her telemetry was showing atrial fibrillation in the 140s to 150s. She denies any chest pain. She has not been coughing. No fever, no chills. She had excellent urine output in her first 24 hours. She got 80 mg of Lasix IV but has not had any now since yesterday morning. She has been on metoprolol and digoxin. She felt a little weak in the legs yesterday morning. Blood pressure was lower. Got up, worked with PT in the afternoon, and did excellent. Otherwise, she is breathing a little bit better now. Did take her oxygen off for a while because she was nauseated but is wearing it again, normally only uses it at night. OBJECTIVE: Vital Signs: Her weight reported at 70.8 on the bed scale, but we will be repeating that with a standing if that appears to have went up like 6 pounds since yesterday and clinically that did not happen. Temperature 97.5, pulse 104, blood pressure 123/68, respiratory rate 18, and O2 of 95% on 0.5 L. General: She is in no acute distress. Heart: Irregularly irregular with murmur noted. Lungs: Lung sounds are decreased with crackles noted especially in the right base. Abdomen: Positive bowel sounds. Soft, nontender. Extremities: Warm and dry, just trace edema. Mental Status: She is alert, she is orientated x3. She is mildly anxious. LABORATORY DATA: Lab work does show normal white count at 9, hemoglobin stable at 11.8, and platelets 263. Sodium 138; potassium 3.6; chloride 101; bicarbonate 29; BUN 35; creatinine 1.2, improving; glucose 115; and calcium 8.7. ASSESSMENT AND PLAN: 1. Acute on chronic diastolic heart failure exacerbation with known ejection fraction of 45%. 2. Atrial fibrillation with RVR. 3. Dyspnea, likely multifactorial with some orthopnea. 4. Leg weakness due to probably some orthostasis from diuresis. She seems to be adjusting, doing well currently. 5. Coronary artery disease. She has not had any chest pain. Troponins were negative on admission. 6. Asthma, moderate persistent, controlled. She is not having any wheezing. She is on her home inhalers. 7. Diet-controlled diabetes. 8. Deep venous thrombosis prophylaxis. She is therapeutic on anticoagulation. PLAN: At this point, the patient will continue acute cares. We will repeat her chest x-ray today. I will give her a dose of 20 mg of IV Lasix this morning. I will repeat all lab work tomorrow. I will send off a digoxin level. I will increase her metoprolol from 50 b.i.d. to 75 b.i.d. MKA: 05/31/2019 08:46:30 MODL: 05/31/2019 09:23:55 /[id number]
--- NOTE | 2019-05-31 10:53 | CR ---
[id number] RAD/RAD Chest PA And Lateral EXAM: FRONTAL AND LATERAL CHEST INDICATION: SHORTNESS OF BREATH. COMPARISON: May 29, 2018. DISCUSSION: Hyperinflation suggests underlying chronic obstructive pulmonary disease. There is mild cardiomegaly with mild to moderate interstitial edema which is improved mildly relative to the previous examination. Minimal bilateral pleural effusions are suggested. A mild to moderate compression fracture at the thoracolumbar junction is unchanged. IMPRESSION: 1. Mild to moderate congestive heart failure has mildly improved. Fercho Spence MD 05/31/19 1052 Thank you for allowing us to participate in the care of your patient.
[2019-05-31] MEDS: Metoprolol Tartrate 25 MG Tab PO SCH (20:20)
[2019-05-31] MEDS: Simvastatin 20 MG Tab PO SCH (20:20)
[2019-05-31] MEDS: Famotidine 20 MG Tab PO SCH (20:21)
[2019-05-31] MEDS: Latanoprost 0.005% Ophth Soln 2.5 ML Bottle EYEBOTH SCH (20:23)
[2019-05-31] MEDS: Acetaminophen 650 MG Tab.ER PO SCH (20:25)
[2019-05-31] MEDS ORDERED: hydrOXYzine HCl 25 MG Tab PO PRN (20:38)
[2019-06-01 08:07] LABS: ANION GAP 13.1 mmol/L (10-20)
[2019-06-01] MEDS: Metoprolol Tartrate 25 MG Tab PO SCH (08:10)
[2019-06-01] MEDS: Allopurinol 300 MG Tab PO SCH (08:11)
[2019-06-01] MEDS: Dextran 70/Hypromellose/PF Ophth Soln 0.9 ML UD EYEBOTH SCH (08:11)
[2019-06-01] MEDS: Calcium Carbonate/Vitamin D3 1250 MG-200 Unit Tab PO SCH (08:11)
[2019-06-01] MEDS: Montelukast 10 MG Tab PO SCH (08:11)
[2019-06-01] MEDS: Losartan 50 MG Tab PO SCH (08:13)
[2019-06-01] MEDS: Digoxin 125 MCG Tab PO SCH (08:13)
[2019-06-01] MEDS: Spironolactone 25 MG Tab PO SCH (08:14)
[2019-06-01] MEDS: Apixaban 2.5 MG Tab PO SCH (08:15)
[2019-06-01] MEDS: Cholecalciferol (Vitamin D3) 25 MCG Tab PO SCH (08:15)
[2019-06-01] MEDS: Potassium Chloride 10 MEQ Tab.ER PO SCH (08:15)
[2019-06-01] MEDS: Mometasone Furoate Powder 220 MCG/Puff 14 Dose Inhaler INH SCH (08:16)
[2019-06-01 08:17] VITALS: BP 147/58; PULSE 102
--- NOTE | 2019-06-01 15:26 | DISCH ---
PRIMARY DISCHARGE DIAGNOSES: 1. Acute on chronic diastolic heart failure exacerbation with known EF 45%, 07/2018. 2. Atrial fibrillation with episodes of rapid ventricular response, probably contributing to her heart failure. 3. Recurrent episodes of orthopnea and some anxiety, possibly panic attack; however, the patient was declining to take any p.r.n. hydroxyzine. 4. Dyspnea, likely multifactorial. She is already on oxygen 3 L at night. She was weaned off during the day. She has some pulmonary hypertension as well. 5. Mild orthostasis after the initial diuresis. This has resolved. She is ambulating, doing well. Worked with therapies and they felt she needed no further swing bed. 6. Coronary artery disease, on medical management. Her troponins are negative. She is not having any chest pain. 7. Moderate persistent asthma, stable, without exacerbation. 8. Diet-controlled diabetes. 9. Anxiety and depression, chronic, agreeable to try Remeron. 10.Anticoagulation with Eliquis and a remote history of a pulmonary embolism after knee replacement. 11.Malnutrition with significant weight loss, over 30 pounds in the last year, which was likely attributed to her heart failure. She had some improved intake in the hospital, even up to 100% of her meals, but admits she just does not eat much. REASON FOR ADMISSION: On the date of admission, this 88-year-old female with known history of heart failure presented to the ER with increasing shortness of breath and weight gain. She had felt it coming on over a few days, had even been fatigued prior to that. She has had previous admissions for the same. She was given some IV Lasix, actually got some IV Solu-Medrol given her history of asthma, and her condition improved within the first 24 hours. She received 80 mg of IV Lasix and had 1.7 mL output. By the next day, she was feeling better breathing-vadlez, but was weak; however, we cut back on her IV Lasix to just 20 mg once daily, and she improved. Her potassium levels always stayed above 3.5, but did require some increased potassium supplements. Her Aldactone remained at 12.5 mg daily, but decision was made to increase that on discharge instead of further adjusting her diuretics. As she had been doing 0.5 of Bumex daily, could take the extra dose at noon, but had not been doing that. She got quite lightheaded on this dose in the past. Otherwise, the patient's heart rates would go up to the 140s and 150s briefly, therefore, her metoprolol was increased to 75 mg twice daily, which she tolerated. Her digoxin level was checked and it was actually low at 0.7, so her dose was increased to 250 mcg temporarily, but decision was made given her advanced age to decrease to 125 again on discharge. Creatinine did go up to 1.3 with initial diuresis, but was down to 1.1 on discharge. Her BUN was at 30, which was down from yesterday. Potassium 4.1. Magnesium level was 2 on discharge, her hemoglobin remained stable, was actually up to 13.4 on discharge. The patient did not require any magnesium supplements during her stay here. 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 Seemed to do better with nursing care and more reassurance. The patient was agreeable to try going home since she is at assisted living and she has some assistance and can get help if needed. She will try the Remeron 7.5 mg at bedtime. She has taken things like Celexa in the past. PHYSICAL EXAMINATION: Discharge Vitals: Her weight on discharge 68.1 kg, pulse 102, blood pressure 147/58, respiratory rate 20, O2 of 90% on room air. General: She is in no acute distress. Heart: Regularly irregular with murmur noted. Lungs: Lung sounds are clear to auscultation bilaterally without crackles or wheezes. Abdomen: Nondistended and nontender. Extremities: Warm and dry. No edema. Mental Status: She is alert. She is orientated x3. She is answering questions appropriately. She is not overly depressed or anxious. The patient states she is not as worried about her heart. DISCHARGE PLANS AND INSTRUCTIONS: Again, increase Aldactone to 25 mg daily. No potassium pills. BMP and magnesium level in 1 week in the clinic. Clinic visit with myself in 1-2 weeks. Bumex will be at 0.5 in the morning, will do the extra dose at noon if 2 pounds weight gain in 1 day. We will increase her metoprolol to 100 mg twice daily. Very likely, we will switch her over to XL, but she has the pills at home right now and I do not know about getting things from the pharmacy. In fact, she may not even be starting her Remeron until tomorrow night, which is just fine. Otherwise, she will continue the 3 L of oxygen at night, get help if she has any shortness of breath, and she will be on the Remeron 7.5 at bedtime. She will be encouraged to increase protein intake in her diet and if she wants to consider home health we can certainly order her for that, but she does have good help over at her assisted living facility. Greater than 30 minutes spent on this discharge process. MKA: 06/01/2019 10:54:04 MODL: 06/01/2019 15:17:32 /[id number]
== END 2019-06-01 12:45 | disposition home or self-care (01) | DRG 292 ==
LOC: VM.ED 07:04 → VM.MS 10:19 → UNDOADMIN 10:25
PROVIDERS: ADMIT Internal Medicine; ATTEND Internal Medicine
DX: I11.0 Hypertensive heart disease with heart failure (principal); E46 Unspecified protein-calorie malnutrition; I50.9 Heart failure, unspecified; I48.91 Unspecified atrial fibrillation; I50.33 Acute on chronic diastolic (congestive) heart failure; K58.9 Irritable bowel syndrome, unspecified; F41.0 Panic disorder [episodic paroxysmal anxiety]; F41.9 Anxiety disorder, unspecified; I25.10 Atherosclerotic heart disease of native coronary artery without angina pectoris; E11.9 Type 2 diabetes mellitus without complications; J45.40 Moderate persistent asthma, uncomplicated; G47.34 Idiopathic sleep related nonobstructive alveolar hypoventilation; Z98.62 Peripheral vascular angioplasty status; Z96.659 Presence of unspecified artificial knee joint; Z88.4 Allergy status to anesthetic agent; F32.9 Major depressive disorder, single episode, unspecified; E87.6 Hypokalemia; K21.9 Gastro-esophageal reflux disease without esophagitis; M10.9 Gout, unspecified; E78.5 Hyperlipidemia, unspecified; E11.40 Type 2 diabetes mellitus with diabetic neuropathy, unspecified; E05.00 Thyrotoxicosis with diffuse goiter without thyrotoxic crisis or storm; Z96.651 Presence of right artificial knee joint; J44.9 Chronic obstructive pulmonary disease, unspecified; H54.7 Unspecified visual loss; H35.30 Unspecified macular degeneration; M19.90 Unspecified osteoarthritis, unspecified site; I95.1 Orthostatic hypotension; Z88.2 Allergy status to sulfonamides; Z85.828 Personal history of other malignant neoplasm of skin; Z88.8 Allergy status to other drugs, medicaments and biological substances; Z79.899 Other long term (current) drug therapy; Z98.61 Coronary angioplasty status; I25.2 Old myocardial infarction; Z90.49 Acquired absence of other specified parts of digestive tract; Z79.01 Long term (current) use of anticoagulants; Z86.711 Personal history of pulmonary embolism; Z88.5 Allergy status to narcotic agent; Z90.89 Acquired absence of other organs; Z79.82 Long term (current) use of aspirin; Z79.51 Long term (current) use of inhaled steroids; Z98.890 Other specified postprocedural states; Z98.49 Cataract extraction status, unspecified eye; Z68.23 Body mass index [BMI] 23.0-23.9, adult
CPT/HCPCS: 71046; 80048; 83735; 83880; 84484; 85025; 93005; 96374; 96375; 99285; J1940; J2930; 36415; 80053; 80162; 82962; 94760; 97162-GP; 99284-GF; A9270-GY

== ENCOUNTER 2019-07-14 00:10 | Emergency (ER) | payer MEDICARE, BC ==
[2019-07-14 00:30] VITALS: BP 158/47; PULSE 71
--- NOTE | 2019-07-14 06:31 | EDM.PDOC ---
ED HPI GENERAL MEDICAL PROBLEM - General Chief Complaint: General Stated Complaint: Mass in lower abdomen Time Seen by Provider: 07/14/19 00:20 Source of Information: Reports: Patient History Limitations: Reports: No Limitations (Pt. ) - History of Present Illness INITIAL COMMENTS - FREE TEXT/NARRATIVE: Pt. presents to ER with complaints of painless, non-pulsatile mass in lower abdomen. Pt. states that she noticed it when she was lying on her back in bed. She states that she had an episode of constipation/hard stool yesterday. She denies any abdominal pain. No fever or chills. No chest pain or shortness of breath. Denies any bloody stools. According to her Cecil Chart, she has had a 25 pound unintended weight-loss and is scheduled to undergo a CT scan of her chest, abdomen and pelvis on 07/22. Onset: Today Onset Date: 07/14/19 Location: Reports: Abdomen - Related Data Allergies Allergy/AdvReac Type Severity Reaction Status Date / Time aloe vera Allergy Itching Verified 07/14/19 00:30 Sulfa (Sulfonamide Allergy Airway Verified 07/14/19 00:30 Antibiotics) Tightness terazosin Allergy Edema Verified 07/14/19 00:30 amlodipine besylate AdvReac Swelling Verified 07/14/19 00:30 [From Norvasc] lidocaine HCl AdvReac Hypotension Verified 07/14/19 00:30 [From Xylocaine] moexipril HCl [From Univasc] AdvReac Cough Verified 07/14/19 00:30 morphine AdvReac Hypotension Verified 07/14/19 00:30 Home Meds: Home Meds Acetaminophen [Tylenol] 650 mg PO Q4H PRN 12/30/15 [History] Allopurinol 150 mg PO DAILY 12/30/15 [History] Aspirin [Adult Low Dose Aspirin EC] 81 mg PO DAILY 12/30/15 [History] Calcium Carbonate/Vitamin D3 [Calcium 600 + Vit D Tablet] 1 tab PO DAILY [History] Famotidine [Pepcid] 20 mg PO BEDTIME 12/30/15 [History] Montelukast [Singulair] 10 mg PO DAILY 12/30/15 [History] Nitroglycerin [Nitrostat] 0.4 mg SL ASDIRECTED PRN 12/30/15 [History] Propylene Glycol/Peg 400 [Systane 0.3-0.4% Eye Drops] 2 drop EYEBOTH BID [History] Simvastatin 20 mg PO BEDTIME 12/30/15 [History] Acetaminophen [Tylenol Arthritis] 650 mg PO BEDTIME 02/13/16 [History] Albuterol/Ipratropium [Combivent Respimat] 2 puff IH QID PRN 02/13/16 [History] Bimatoprost [LUMIGAN 0.01% Ophth Soln] 1 drop EYEBOTH BEDTIME 02/14/16 [History] Losartan [Cozaar] 100 mg PO DAILY 08/04/18 [History] Apixaban [Eliquis] 5 mg PO BID 08/18/18 [History] Bumetanide [Bumex] 0.5 mg PO BID@0700,1400 PRN 01/18/19 [History] Digoxin [Digox] 0.125 mg PO DAILY 01/18/19 [History] Fluticasone Propionate [Flovent HFA] 1 puff INH BID 01/18/19 [History] Glucosamine/D3/Boswellia Franci [Osteo Bi-Flex Caplet] 1 cap PO DAILY 01/18/19 [ History] Loperamide [Imodium AD] 2 cap PO ASDIRECTED PRN MDD 8 caps 01/18/19 [History] Cholecalciferol (Vitamin D3) [Vitamin D3] 2,000 unit PO DAILY 05/29/19 [History] guaiFENesin [Mucinex] 600 mg PO BID PRN 05/29/19 [History] Metoprolol Tartrate [Lopressor] 100 mg PO BID #120 tablet 06/01/19 [Rx] Mirtazapine [Remeron] 7.5 mg PO BEDTIME #15 tab.dis 06/01/19 [Rx] Spironolactone [Aldactone] 25 mg PO DAILY #30 tablet 06/01/19 [Rx] Past Medical History HEENT History: Reports: Impaired Vision, Macular Degeneration Cardiovascular History: Reports: Heart Failure, Hypertension, DC, SOB on Exertion Respiratory History: Reports: Asthma, Other (See Below) Other Respiratory History: hypoxic with sleep Gastrointestinal History: Reports: Irritable Bowel Syndrome Musculoskeletal History: Reports: Osteoarthritis Psychiatric History: Reports: Anxiety Oncologic (Cancer) History: Reports: Other (See Below) Other Oncologic History: on her nose Dermatologic History: Reports: Other (See Below) Other Dermatologic History: hx of basal cell - Past Surgical History HEENT Surgical History: Reports: Cataract Surgery Cardiovascular Surgical History: Reports: Percutaneous Transluminal Angioplasty GI Surgical History: Reports: Appendectomy Neurological Surgical History: Reports: Other (See Below) Other Neurological Surgeries/Procedures: Spine surgury 1977 Musculoskeletal Surgical History: Reports: Knee Replacement Social & Family History - Family History Family Medical History: Noncontributory - Caffeine Use Caffeine Use: Reports: Coffee ED ROS GENERAL - Review of Systems Review Of Systems: See Below Constitutional: Reports: No Symptoms HEENT: Reports: No Symptoms Respiratory: Reports: No Symptoms Cardiovascular: Reports: No Symptoms Endocrine: Reports: No Symptoms GI/Abdominal: Reports: Constipation. Denies: Hematemesis, Hematochezia, Melena , Nausea, Vomiting, Other (see HPI) : Reports: No Symptoms Musculoskeletal: Reports: No Symptoms Skin: Reports: No Symptoms Neurological: Reports: No Symptoms Psychiatric: Reports: No Symptoms Hematologic/Lymphatic: Reports: No Symptoms Immunologic: Reports: No Symptoms ED EXAM, GENERAL - Physical Exam Exam: See Below Exam Limited By: No Limitations General Appearance: Alert, WD/WN, No Apparent Distress GI/Abdominal: Normal Bowel Sounds, Soft, Non-Tender, No Organomegaly, Mass Course - Vital Signs Last Recorded V/S: Last Vital Signs Temp 36.7 C 07/14/19 00:10 Pulse 71 07/14/19 00:10 Resp 16 07/14/19 00:10 BP 158/47 H 07/14/19 00:10 Pulse Ox 95 07/14/19 00:10 - Orders/Labs/Meds Orders: Active Orders 24 hr Category Date Time Status Abdomen 2V AP Flat Upright [CR] Stat Exams 07/14/19 00:27 Taken Departure - Departure Time of Disposition: 02:00 Disposition: Home, Self-Care 01 Clinical Impression: Constipation - Discharge Information Instructions: Constipation, Adult, [id number] Referrals: PCP,Unobtain [Primary Care Provider] - Forms: ED Department Discharge Additional Instructions: Start miralax once daily. This can be obtained over the counter. Greatly increase your intake of water. Mimimize coffee and other drinks with caffeine. Milk of Magnesia 1200mg/5ml 1 tsp three times daily until your stool is soft and it is easier to have a bowel movement. Follow-up for the CT scan on the . We just did plain film x-rays which did not show any free air or obstruction. The CT scan is more in-depth. Recheck in clinic in 10 days. - My Orders Last 24 Hours: My Active Orders 07/14/19 00:27 Abdomen 2V AP Flat Upright [CR] Stat - Assessment/Plan Last 24 Hours: My Active Orders 07/14/19 00:27 Abdomen 2V AP Flat Upright [CR] Stat Plan: Start miralax once daily. This can be obtained over the counter. Greatly increase your intake of water. Mimimize coffee and other drinks with caffeine. Milk of Magnesia 1200mg/5ml 1 tsp three times daily until your stool is soft and it is easier to have a bowel movement. Follow-up for the CT scan on the . We just did plain film x-rays which did not show any free air or obstruction. The CT scan is more in-depth. Recheck in clinic in 10 days.
--- NOTE | 2019-07-14 08:41 | CR ---
[id number] RAD/RAD Abd Flat and Upright 2V EXAM: RAD Abd Flat and Upright 2V INDICATION: ABDOMINAL PAIN COMPARISON: None. DISCUSSION: Unobstructed bowel gas pattern. No radiographically evident pneumoperitoneum. Moderate colonic stool burden. Vascular calcifications in the pelvis. Lung bases demonstrate changes of cardiomegaly, vascular congestion, and COPD. IMPRESSION: No acute findings in the abdomen. Edward Mcghee MD 07/14/19 0838 Thank you for allowing us to participate in the care of your patient.
== END 2019-07-14 01:35 | disposition home or self-care (01) ==
LOC: VM.ED 00:10
DX: K59.00 Constipation, unspecified (principal); I25.2 Old myocardial infarction; I11.0 Hypertensive heart disease with heart failure; I50.9 Heart failure, unspecified; J45.909 Unspecified asthma, uncomplicated; Z79.01 Long term (current) use of anticoagulants; Z79.51 Long term (current) use of inhaled steroids; Z79.82 Long term (current) use of aspirin; Z79.899 Other long term (current) drug therapy; Z88.2 Allergy status to sulfonamides; Z88.6 Allergy status to analgesic agent; Z88.8 Allergy status to other drugs, medicaments and biological substances; Z91.09 Other allergy status, other than to drugs and biological substances
CPT/HCPCS: 74019; 99283-25; 99283-GF

== ENCOUNTER 2019-09-27 10:30 | Emergency (ER) | payer MEDICARE, BC ==
[2019-09-27 11:09] VITALS: BP 98/59; PULSE 76
--- NOTE | 2019-09-27 12:04 | EDM.PDOC ---
ED HPI GENERAL MEDICAL PROBLEM - General Chief Complaint: Back Pain or Injury Stated Complaint: FELL AND HIT BACK ON WHEELCHAIR Time Seen by Provider: 09/27/19 11:00 Source of Information: Reports: Patient History Limitations: Reports: No Limitations - History of Present Illness INITIAL COMMENTS - FREE TEXT/NARRATIVE: Patient comes into the emergency department with complaint of lower back pain. Patient was at home this morning and ended up falling hitting her back on her walker. Patient does reside at the assisted living center. Patient showed nursing staff there who suggested that she be evaluated in the emergency department for further clarity to ensure no further injury occurred. Patient states that she was ambulating and completing her activity of daily living without any difficulty prior to arrival. She denies any numbness or tingling. She denies any chest pain, shortness breath, difficulty ambulating, loss of bowel or bladder, or peripheral edema. Patient states it is tender to touch the region of impaction but denies any other injury or concern Onset: Sudden Quality: Reports: Throbbing Severity: Mild Improves with: Reports: None Worsens with: Reports: None Associated Symptoms: Reports: No Other Symptoms Lower Back Pain Score (Numeric/FACES): 2 - Related Data Allergies Allergy/AdvReac Type Severity Reaction Status Date / Time aloe vera Allergy Itching Verified 09/27/19 11:15 moexipril [From Univasc] Allergy Cough Verified 09/27/19 11:15 phenazopyridine Allergy Nausea Verified 09/27/19 11:15 Sulfa (Sulfonamide Allergy Airway Verified 09/27/19 11:15 Antibiotics) Tightness terazosin Allergy Edema Verified 09/27/19 11:15 amlodipine besylate AdvReac Swelling Verified 09/27/19 11:15 [From Norvasc] lidocaine HCl AdvReac Hypotension Verified 09/27/19 11:15 [From Xylocaine] moexipril HCl [From Univasc] AdvReac Cough Verified 09/27/19 11:15 morphine AdvReac Hypotension Verified 09/27/19 11:15 Home Meds: Home Meds Acetaminophen [Tylenol] 650 mg PO Q4H PRN 12/30/15 [History] Aspirin [Adult Low Dose Aspirin EC] 81 mg PO DAILY 12/30/15 [History] Famotidine [Pepcid] 20 mg PO BEDTIME 12/30/15 [History] Montelukast [Singulair] 10 mg PO DAILY 12/30/15 [History] Nitroglycerin [Nitrostat] 0.4 mg SL ASDIRECTED PRN 12/30/15 [History] Propylene Glycol/Peg 400 [Systane 0.3-0.4% Eye Drops] 2 drop EYEBOTH BID [History] Simvastatin 20 mg PO BEDTIME 12/30/15 [History] allopurinoL [Allopurinol] 150 mg PO DAILY 12/30/15 [History] Acetaminophen [Tylenol Arthritis] 650 mg PO BEDTIME 02/13/16 [History] Albuterol/Ipratropium [Combivent Respimat] 2 puff IH QID PRN 02/13/16 [History] Bimatoprost [LUMIGAN 0.01% Ophth Soln] 1 drop EYEBOTH BEDTIME 02/14/16 [History] Losartan [Cozaar] 100 mg PO DAILY 08/04/18 [History] Apixaban [Eliquis] 5 mg PO BID 08/18/18 [History] Bumetanide [Bumex] 0.5 mg PO BID@0700,1400 PRN 01/18/19 [History] Digoxin [Digox] 0.125 mg PO DAILY 01/18/19 [History] Fluticasone Propionate [Flovent HFA] 1 puff INH BID 01/18/19 [History] Loperamide [Imodium AD] 2 cap PO ASDIRECTED PRN MDD 8 caps 01/18/19 [History] Cholecalciferol (Vitamin D3) [Vitamin D3] 2,000 unit PO DAILY 05/29/19 [History] guaiFENesin [Mucinex] 600 mg PO BID PRN 05/29/19 [History] Mirtazapine [Remeron] 7.5 mg PO BEDTIME #15 tab.dis 06/01/19 [Rx] Spironolactone [Aldactone] 25 mg PO DAILY #30 tablet 06/01/19 [Rx] Metoprolol Succinate [Toprol XL 100mg] 100 mg PO DAILY 09/25/19 [History] Past Medical History HEENT History: Reports: Glaucoma, Impaired Vision, Macular Degeneration, Other ( See Below) Other HEENT History: thyrotoxic exophthalmos. Blepharitis Cardiovascular History: Reports: Afib, Blood Clots/VTE/DVT, CAD, Heart Failure, Hypertension, [place], Pulmonary Hypertension, SOB on Exertion, Other (See Below) Other Cardiovascular History: PE. Cardiac Artery bruit. Aortic/mitral insuffienency Respiratory History: Reports: Asthma, Other (See Below) Other Respiratory History: hypoxic with sleep Gastrointestinal History: Reports: Irritable Bowel Syndrome, Other (See Below) Other Gastrointestinal History: Pelvic mass Musculoskeletal History: Reports: Gout, Osteoarthritis Neurological History: Reports: Other (See Below) Other Neuro History: Peripheral neuropathy Psychiatric History: Reports: Anxiety Endocrine/Metabolic History: Reports: Diabetes, Type II, Osteopenia, Other (See Below) Other Endocrine/Metabolic History: Unintensonal weight loss. Diet controlled DM II. Graves disease Oncologic (Cancer) History: Reports: Other (See Below) Other Oncologic History: on her nose Dermatologic History: Reports: Other (See Below) Other Dermatologic History: hx of basal cell - Past Surgical History HEENT Surgical History: Reports: Cataract Surgery Cardiovascular Surgical History: Reports: Percutaneous Transluminal Angioplasty GI Surgical History: Reports: Appendectomy Neurological Surgical History: Reports: Other (See Below) Other Neurological Surgeries/Procedures: Spine surgury 1976 Musculoskeletal Surgical History: Reports: Knee Replacement Social & Family History - Family History Family Medical History: Noncontributory - Tobacco Use Smoking Status *Q: Former Smoker Used Tobacco, but Quit: Yes Month/Year Tobacco Last Used: 1959 - Caffeine Use Caffeine Use: Reports: Coffee ED ROS GENERAL - Review of Systems Review Of Systems: See Below Constitutional: Reports: No Symptoms HEENT: Reports: No Symptoms Respiratory: Reports: No Symptoms Cardiovascular: Reports: No Symptoms Endocrine: Reports: No Symptoms GI/Abdominal: Reports: No Symptoms : Reports: No Symptoms Musculoskeletal: Reports: No Symptoms Skin: Reports: No Symptoms Neurological: Reports: No Symptoms ED EXAM, GENERAL - Physical Exam Exam: See Below Exam Limited By: No Limitations General Appearance: Alert, WD/WN, No Apparent Distress Eye Exam: Bilateral Eye: EOMI, PERRL Head: Atraumatic, Normocephalic Neck: Normal Inspection, Supple, Non-Tender, Full Range of Motion Respiratory/Chest: No Respiratory Distress, Lungs Clear, Normal Breath Sounds, No Accessory Muscle Use, Chest Non-Tender Cardiovascular: Normal Peripheral Pulses, Regular Rate, Rhythm, No Edema, No Murmur GI/Abdominal: Normal Bowel Sounds, Soft, Non-Tender Back Exam: Full Range of Motion, Vertebral Tenderness (abrasion and ecchymosis noted over T 11- L2. ) Extremities: Normal Inspection, Normal Range of Motion, Non-Tender, No Pedal Edema, Normal Capillary Refill Neurological: Alert, Oriented, Normal Gait Psychiatric: Normal Affect, Normal Mood Skin Exam: Warm, Dry, Intact, Normal Color Course - Vital Signs Last Recorded V/S: Last Vital Signs Temp 37.2 C 09/27/19 11:07 Pulse 76 09/27/19 11:07 Resp 14 09/27/19 11:07 BP 98/59 L 09/27/19 11:07 Pulse Ox 96 09/27/19 11:07 - Orders/Labs/Meds Orders: Active Orders 24 hr Category Date Time Status Thoracic Spine 2V [CR] Stat Exams 09/27/19 11:15 Taken Departure - Departure Time of Disposition: 12:25 Disposition: Home, Self-Care 01 Clinical Impression: Back contusion Qualifiers: Encounter type: initial encounter Laterality: unspecified laterality Qualified Code(s): S20.229A - Contusion of unspecified back wall of thorax, initial encounter - Discharge Information *PRESCRIPTION DRUG MONITORING PROGRAM REVIEWED*: Not Applicable *COPY OF PRESCRIPTION DRUG MONITORING REPORT IN PATIENT ISAEL: Not Applicable Instructions: Muscle Strain, [id number] Referrals: Beba Anderson DO [Primary Care Provider] - Forms: ED Department Discharge Additional Instructions: 1. rest 2. increase water intake 3. When you awake in the morning it is advised you have a quick snack or orange juice prior to completely activities to prevent drop in your blood sugar before breakfast is served 4. Can use ice and heat for comfort 5. Can take Tylenol and ibuprofen for pain and discomfort 6. Follow up in the clinic if not better. 7. Call with any questions or concerns Sepsis Event Note - Evaluation Sepsis Screening Result: No Definite Risk - Focused Exam Vital Signs: Vital Signs Temp Pulse Resp BP Pulse Ox 09/27/19 11:07 37.2 C 76 14 98/59 L 96 Date Exam was Performed: 09/27/19 Time Exam was Performed: 12:27 - My Orders Last 24 Hours: My Active Orders 09/27/19 11:15 Thoracic Spine 2V [CR] Stat - Assessment/Plan Last 24 Hours: My Active Orders 09/27/19 11:15 Thoracic Spine 2V [CR] Stat Assessment:: 1. back pain/contusion Plan: 1. Xray of back results provided with the patient and family 2. Education regarding activity, diet, safe maneuvering in the home, over-the- counter medication use for any pain and discomfort, and follow-up care 3. All questions and concerns addressed patient prior to discharge
--- NOTE | 2019-09-27 12:22 | CR ---
[id number] RAD/RAD Lumbar Spine 2-3V; [id number] RAD/RAD Thoracic Spine 2V Exam: RAD Thoracic Spine 2V, RAD Lumbar Spine 2-3V Indication:FALL. Comparison: CT from June 2019. Discussion: Moderate to severe T12 compression deformity. No change in height loss compared to CT from June 2019. Mild to moderate anterior wedge compression deformities of the T4 and T6 vertebral bodies were also seen on prior CT and are unchanged. No new fracture identified. Advanced changes of spondylosis are again seen. Impression: Chronic compression deformities of the T4, T6, and T12 vertebral bodies. These were seen on CT from June 2019 and are unchanged. No evidence of an acute fracture. Edward Mcghee MD 09/27/19 [id number] Thank you for allowing us to participate in the care of your patient.
== END 2019-09-27 12:36 | disposition home or self-care (01) ==
LOC: VM.ED 10:30
DX: S30.0XXA Contusion of lower back and pelvis, initial encounter (principal); E11.42 Type 2 diabetes mellitus with diabetic polyneuropathy; F41.9 Anxiety disorder, unspecified; I11.0 Hypertensive heart disease with heart failure; I50.9 Heart failure, unspecified; I25.2 Old myocardial infarction; I48.91 Unspecified atrial fibrillation; I25.10 Atherosclerotic heart disease of native coronary artery without angina pectoris; J45.909 Unspecified asthma, uncomplicated; M10.9 Gout, unspecified; Z88.2 Allergy status to sulfonamides; Z88.5 Allergy status to narcotic agent; Z88.8 Allergy status to other drugs, medicaments and biological substances; Z98.49 Cataract extraction status, unspecified eye; Z90.49 Acquired absence of other specified parts of digestive tract; Z79.82 Long term (current) use of aspirin; Z87.891 Personal history of nicotine dependence; W01.198A Fall on same level from slipping, tripping and stumbling with subsequent striking against other object, initial encounter; Y92.009 Unspecified place in unspecified non-institutional (private) residence as the place of occurrence of the external cause
CPT/HCPCS: 72070; 72100; 99283-25; 99284-GF

== ENCOUNTER 2019-11-01 09:09 | Emergency (ER) | payer MEDICARE, BC ==
[2019-11-01] MEDS ORDERED: Sodium Chloride 0.9% 10 ML Syringe FLUSH PRN (09:17)
[2019-11-01 09:30] VITALS: BP 136/58; PULSE 102
[2019-11-01] MEDS ORDERED: LORazepam 1 MG Tab PO ONE (09:33)
[2019-11-01 10:07] LABS: CHLORIDE,CL 101 mmol/L (98-107); SODIUM,NA 137 mmol/L (136-145)
[2019-11-01 10:08] LABS: ANION GAP 15.7 mmol/L (10-20)
[2019-11-01] MEDS ORDERED: Furosemide 40 MG/4 ML VIAL IV ONE (10:10)
--- NOTE | 2019-11-01 10:11 | CR ---
[id number] RAD/RAD Chest PA And Lateral EXAM: RAD Chest PA And Lateral CLINICAL DATA: SHORTNESS OF BREATH COMPARISON: CORRELATION IS MADE WITH THE EXAM OF 2018 FINDINGS: There are small bilateral effusions There appears to be minimal edema There is underlying emphysema The cardiac silhouette is stable IMPRESSION: MINIMAL CHF SUPERIMPOSED UPON COPD Lex Muniz MD 11/01/19 1010 Thank you for allowing us to participate in the care of your patient.
--- NOTE | 2019-11-01 10:21 | EDM.PDOC ---
ED HPI GENERAL MEDICAL PROBLEM - General Chief Complaint: Respiratory Problem Time Seen by Provider: 11/01/19 09:10 Source of Information: Reports: Patient, Family History Limitations: Reports: No Limitations - History of Present Illness INITIAL COMMENTS - FREE TEXT/NARRATIVE: Patient presents to ER with complaints of shortness of breath. Patient states she has become more short of breath within the last few days. States she also had some palpitations last evening. Shortness of breath is worse while laying down on back or during exercise. Patient denies chest pain, edema or productive cough. Patient states she has felt chills but denies fever. Patient denies significant weakness, syncope or falls. Daughter is present and states patient is very anxious, was prescribed a medication for anxiety but PCP stopped prescribing it, as she was experiencing visual hallucinations. Patient was recently diagnosed with UTI and was placed on an antibiotic, amoxicillin, states she has been taking them for 2 days now. Patient was confused and having hallucinations which is why she was seen and tested for UTI. Patient denies weight gain but states she has had anorexia and has lost about 50 lbs in the last year. Patient denies nausea, vomiting or diarrhea. Onset Date: 10/30/19 Duration: Constant Location: Reports: Chest Severity: Moderate Improves with: Reports: Rest Worsens with: Reports: Other (laying on back ), Movement Associated Symptoms: Reports: No Other Symptoms - Related Data Allergies Allergy/AdvReac Type Severity Reaction Status Date / Time aloe vera Allergy Itching Verified 11/01/19 09:38 moexipril [From Univasc] Allergy Cough Verified 11/01/19 09:38 phenazopyridine Allergy Nausea Verified 11/01/19 09:38 Sulfa (Sulfonamide Allergy Airway Verified 11/01/19 09:38 Antibiotics) Tightness terazosin Allergy Edema Verified 11/01/19 09:38 amlodipine besylate AdvReac Swelling Verified 11/01/19 09:38 [From Norvasc] lidocaine HCl AdvReac Hypotension Verified 11/01/19 09:38 [From Xylocaine] moexipril HCl [From Univasc] AdvReac Cough Verified 11/01/19 09:38 morphine AdvReac Hypotension Verified 11/01/19 09:38 Home Meds: Home Meds Acetaminophen [Tylenol] 650 mg PO Q4H PRN 12/30/15 [History] Aspirin [Adult Low Dose Aspirin EC] 81 mg PO DAILY 12/30/15 [History] Famotidine [Pepcid] 20 mg PO BEDTIME 12/30/15 [History] Montelukast [Singulair] 10 mg PO DAILY 12/30/15 [History] Nitroglycerin [Nitrostat] 0.4 mg SL ASDIRECTED PRN 12/30/15 [History] Propylene Glycol/Peg 400 [Systane 0.3-0.4% Eye Drops] 2 drop EYEBOTH BID [History] Simvastatin 20 mg PO BEDTIME 12/30/15 [History] allopurinoL [Allopurinol] 150 mg PO DAILY 12/30/15 [History] Acetaminophen [Tylenol Arthritis] 650 mg PO BEDTIME 02/13/16 [History] Albuterol/Ipratropium [Combivent Respimat] 2 puff IH QID PRN 02/13/16 [History] Bimatoprost [LUMIGAN 0.01% Ophth Soln] 1 drop EYEBOTH BEDTIME 02/14/16 [History] Losartan [Cozaar] 100 mg PO DAILY 08/04/18 [History] Apixaban [Eliquis] 5 mg PO BID 08/18/18 [History] Bumetanide [Bumex] 0.5 mg PO BID@0700,1400 PRN 01/18/19 [History] Digoxin [Digox] 0.125 mg PO DAILY 01/18/19 [History] Fluticasone Propionate [Flovent HFA] 1 puff INH BID 01/18/19 [History] Loperamide [Imodium AD] 2 cap PO ASDIRECTED PRN MDD 8 caps 01/18/19 [History] Cholecalciferol (Vitamin D3) [Vitamin D3] 2,000 unit PO DAILY 05/29/19 [History] guaiFENesin [Mucinex] 600 mg PO BID PRN 05/29/19 [History] Mirtazapine [Remeron] 7.5 mg PO BEDTIME #15 tab.dis 06/01/19 [Rx] Spironolactone [Aldactone] 25 mg PO DAILY #30 tablet 06/01/19 [Rx] Metoprolol Succinate [Toprol XL 100mg] 100 mg PO DAILY 09/25/19 [History] Glucosam/Chond/Collagen/Hyalur [Glucosamine Chondroitin] 1 each PO DAILY [History] Past Medical History HEENT History: Reports: Glaucoma, Impaired Vision, Macular Degeneration, Other ( See Below) Other HEENT History: thyrotoxic exophthalmos. Blepharitis Cardiovascular History: Reports: Afib, Blood Clots/VTE/DVT, CAD, Heart Failure, Hypertension, [place], Pulmonary Hypertension, SOB on Exertion, Other (See Below) Other Cardiovascular History: PE. Cardiac Artery bruit. Aortic/mitral insuffienency Respiratory History: Reports: Asthma, Other (See Below) Other Respiratory History: hypoxic with sleep Gastrointestinal History: Reports: Irritable Bowel Syndrome, Other (See Below) Other Gastrointestinal History: Pelvic mass Musculoskeletal History: Reports: Gout, Osteoarthritis Neurological History: Reports: Other (See Below) Other Neuro History: Peripheral neuropathy Psychiatric History: Reports: Anxiety Endocrine/Metabolic History: Reports: Diabetes, Type II, Osteopenia, Other (See Below) Other Endocrine/Metabolic History: Unintensonal weight loss. Diet controlled DM II. Graves disease Oncologic (Cancer) History: Reports: Other (See Below) Other Oncologic History: on her nose Dermatologic History: Reports: Other (See Below) Other Dermatologic History: hx of basal cell - Past Surgical History HEENT Surgical History: Reports: Cataract Surgery Cardiovascular Surgical History: Reports: Percutaneous Transluminal Angioplasty GI Surgical History: Reports: Appendectomy Neurological Surgical History: Reports: Other (See Below) Other Neurological Surgeries/Procedures: Spine surgury 1976 Musculoskeletal Surgical History: Reports: Knee Replacement Social & Family History - Family History Family Medical History: Noncontributory - Tobacco Use Smoking Status *Q: Unknown Ever Smoked - Caffeine Use Caffeine Use: Reports: Coffee ED ROS GENERAL - Review of Systems Review Of Systems: See Below Constitutional: Reports: Fatigue, Decreased Appetite, Weight Loss. Denies: Fever, Weakness, Diaphoresis, Weight Gain HEENT: Reports: No Symptoms. Denies: Vertigo, Vision Change Respiratory: Reports: Shortness of Breath. Denies: Wheezing, Cough, Sputum Cardiovascular: Reports: Palpitations. Denies: Chest Pain, Claudication, Edema , Lightheadedness, Syncope Endocrine: Reports: No Symptoms GI/Abdominal: Reports: Constipation, Decreased Appetite. Denies: Diarrhea, Nausea, Vomiting : Reports: Incontinence. Denies: Discharge, Dysuria, Frequency, Pain, Urgency Musculoskeletal: Reports: No Symptoms Skin: Reports: No Symptoms Neurological: Reports: Confusion. Denies: Dizziness, Headache, Numbness, Syncope, Tingling, Tremors, Trouble Speaking, Difficulty Walking, Weakness, Change in Speech, Gait Disturbance Psychiatric: Reports: Anxiety, Confusion, Depression. Denies: Hallucinations Hematologic/Lymphatic: Reports: No Symptoms Immunologic: Reports: No Symptoms ED EXAM, GENERAL - Physical Exam Exam: See Below Exam Limited By: No Limitations General Appearance: Alert, WD/WN, No Apparent Distress Eye Exam: Bilateral Eye: EOMI, PERRL Ears: Normal External Exam, Hearing Grossly Normal Nose: Normal Inspection, Normal Mucosa, No Blood Head: Atraumatic, Normocephalic Neck: Normal Inspection, Supple Respiratory/Chest: No Respiratory Distress, Lungs Clear, Normal Breath Sounds ( tachypnic), No Accessory Muscle Use, Chest Non-Tender Cardiovascular: No Edema, No Gallop, No JVD, No Murmur, No Rub, Irregularly Irregular Peripheral Pulses: 2+: Radial (L), Radial (R) GI/Abdominal: Soft, Non-Tender, No Organomegaly, No Distention (Female) Exam: Deferred Rectal (Female) Exam: Deferred Extremities: Normal Inspection, Normal Range of Motion, Non-Tender, No Pedal Edema Neurological: Alert, Oriented, CN II-XII Intact, Normal Cognition, Normal Reflexes Psychiatric: Normal Affect, Anxious Skin Exam: Warm, Dry, Intact, Normal Color, No Rash Lymphatic: No Adenopathy EKG INTERPRETATION EKG Date: 11/01/19 Time: 09:14 Rhythm: A-Fib Course - Vital Signs Last Recorded V/S: Last Vital Signs Temp 36.2 C 11/01/19 09:10 Pulse 102 H 11/01/19 09:10 Resp 18 11/01/19 09:10 BP 136/58 L 11/01/19 09:10 Pulse Ox 97 11/01/19 09:10 - Orders/Labs/Meds Orders: Active Orders 24 hr Category Date Time Status Cardiac Monitoring [RC] CONTINUOUS Care 11/01/19 09:17 Active EKG Documentation Completion [RC] STAT Care 11/01/19 09:17 Active Sodium Chloride 0.9% [Saline Flush] Med 11/01/19 09:17 Active 10 ml FLUSH ASDIRECTED PRN Peripheral IV Insertion Adult [OM.PC] Routine Oth 11/01/19 09:17 Ordered Medication Orders Sodium Chloride (Saline Flush) 10 ml FLUSH ASDIRECTED PRN PRN Reason: Keep Vein Open Labs: Laboratory Tests 11/01/19 11/01/19 11/01/19 Range/Units 09:29 09:29 09:29 WBC 6.5 (4.0-10.0) x10^3/uL RBC 3.89 L (4.00-5.50) x10^6/uL Hgb 11.8 L D (12.0-16.0) g/dL Hct 37.1 (33.0-47.0) % MCV 95.4 H D (78.0-93.0) fL MCH 30.3 (26.0-32.0) pg MCHC 31.8 L (32.0-36.0) g/dL RDW Coeff of [place] 15.5 H (10.0-15.0) % Plt Count 279 (130-400) x10^3/uL Neut % (Auto) 60.0 (50.0-80.0) % Lymph % (Auto) 26.2 (25.0-50.0) % [place] % (Auto) 8.8 (2.0-11.0) % Eos % (Auto) 4.5 H (0.0-4.0) % Baso % (Auto) 0.5 (0.2-1.2) % PT 12.5 (10.0-12.8) SEC INR 1.1 L (2.0-3.5) Sodium 137 (136-145) mmol/L Potassium 4.7 (3.5-5.1) mmol/L Chloride 101 (98-107) mmol/L Carbon Dioxide 25 (21-32) mmol/L Anion Gap 15.7 (10-20) mmol/L BUN 21 H (7-18) mg/dL Creatinine 1.2 H (0.55-1.02) mg/dL Est Cr Clr Drug Dosing TNP Estimated GFR (MDRD) 42 Glucose 129 H (74-106) mg/dL Calcium 8.6 (8.5-10.1) mg/dL Corrected Calcium 9.32 (8.5-10.1) mg/dL Phosphorus 3.7 (2.6-4.7) mg/dL Magnesium 1.8 (1.8-2.4) mg/dL Total Bilirubin 1.0 (0.2-1.0) mg/dL AST 13 L (15-37) U/L ALT 14 (14-59) U/L Alkaline Phosphatase 111 (46-116) U/L Troponin I 0.030 (<=0.056) ng/mL C-Reactive Protein 1.4 H (<=0.9) mg/dL NT-Pro-B Natriuret Pep 7941 H (<=450) pg/mL Total Protein 7.6 (6.4-8.2) g/dL Albumin 3.1 L (3.4-5.0) g/dL Globulin 4.5 Albumin/Globulin Ratio 0.69 TSH, Ultra Sensitive 3.113 (0.358-3.74) uIU/mL Urine Color (YELLOW) Urine Appearance (CLEAR) Urine pH (5.0-8.0) Ur Specific [place] Urine Protein (NEGATIVE) mg/dL Urine Glucose (UA) (NEGATIVE) mg/dL Urine Ketones (NEGATIVE) mg/dL Urine Occult Blood (NEGATIVE) Urine Nitrite (NEGATIVE) Urine Bilirubin (NEGATIVE) Urine Urobilinogen (0.2) EU/dL Ur Leukocyte Esterase (NEGATIVE) Urine RBC (NOT SEEN) /HPF Urine WBC (NOT SEEN) /HPF Ur Squamous Epith Cells (NEGATIVE) /HPF Urine Bacteria (NEGATIVE) /HPF Urine Mucus (NEGATIVE) /LPF Digoxin (0.90-2.00) ng/mL 11/01/19 11/01/19 Range/Units 09:29 10:01 WBC (4.0-10.0) x10^3/uL RBC (4.00-5.50) x10^6/uL Hgb (12.0-16.0) g/dL Hct (33.0-47.0) % MCV (78.0-93.0) fL MCH (26.0-32.0) pg MCHC (32.0-36.0) g/dL RDW Coeff of [place] (10.0-15.0) % Plt Count (130-400) x10^3/uL Neut % (Auto) (50.0-80.0) % Lymph % (Auto) (25.0-50.0) % [place] % (Auto) (2.0-11.0) % Eos % (Auto) (0.0-4.0) % Baso % (Auto) (0.2-1.2) % PT (10.0-12.8) SEC INR (2.0-3.5) Sodium (136-145) mmol/L Potassium (3.5-5.1) mmol/L Chloride (98-107) mmol/L Carbon Dioxide (21-32) mmol/L Anion Gap (10-20) mmol/L BUN (7-18) mg/dL Creatinine (0.55-1.02) mg/dL Est Cr Clr Drug Dosing Estimated GFR (MDRD) Glucose (74-106) mg/dL Calcium (8.5-10.1) mg/dL Corrected Calcium (8.5-10.1) mg/dL Phosphorus (2.6-4.7) mg/dL Magnesium (1.8-2.4) mg/dL Total Bilirubin (0.2-1.0) mg/dL AST (15-37) U/L ALT (14-59) U/L Alkaline Phosphatase (46-116) U/L Troponin I (<=0.056) ng/mL C-Reactive Protein (<=0.9) mg/dL NT-Pro-B Natriuret Pep (<=450) pg/mL Total Protein (6.4-8.2) g/dL Albumin (3.4-5.0) g/dL Globulin Albumin/Globulin Ratio TSH, Ultra Sensitive (0.358-3.74) uIU/mL Urine Color Dark yellow H (YELLOW) Urine Appearance Slightly cloudy H (CLEAR) Urine pH 5.5 (5.0-8.0) Ur Specific [place] 1.020 Urine Protein Trace H (NEGATIVE) mg/dL Urine Glucose (UA) Negative (NEGATIVE) mg/dL Urine Ketones Negative (NEGATIVE) mg/dL Urine Occult Blood Negative (NEGATIVE) Urine Nitrite Negative (NEGATIVE) Urine Bilirubin Negative (NEGATIVE) Urine Urobilinogen 1.0 (0.2) EU/dL Ur Leukocyte Esterase Negative (NEGATIVE) Urine RBC 0-5 (NOT SEEN) /HPF Urine WBC 0-5 (NOT SEEN) /HPF Ur Squamous Epith Cells Few H (NEGATIVE) /HPF Urine Bacteria Rare (NEGATIVE) /HPF Urine Mucus Not seen (NEGATIVE) /LPF Digoxin 1.08 (0.90-2.00) ng/mL Meds: Medications Generic Name Dose Route Start Last Admin Trade Name Freq PRN Reason Stop Dose Admin Sodium Chloride 10 ml 11/01/19 09:17 Saline Flush FLUSH ASDIRECTED PRN Keep Vein Open Discontinued Medications Generic Name Dose Route Start Last Admin Trade Name Freq PRN Reason Stop Dose Admin Furosemide 40 mg 11/01/19 10:10 11/01/19 10:19 Lasix IV 11/01/19 10:11 40 mg ONETIME ONE Administration Lorazepam 1 mg 11/01/19 09:33 11/01/19 09:41 Ativan PO 11/01/19 09:34 1 mg ONETIME ONE Administration - Radiology Interpretation Free Text/Narrative:: Chest x-ray showed minimal CHF - Re-Assessments/Exams Free Text/Narrative Re-Assessment/Exam: 09:30 Chest xray, EKG, Labs ordered, EKG shows atrial fibrillation 09:45 Ativan PO given to patient for anxiety, 10:00 Chest Xray results show minimal cardiac silhouette, Lasix 40 mg IV ordered Departure - Departure Time of Disposition: 10:44 Disposition: Home, Self-Care 01 Clinical Impression: Anxiety CHF (congestive heart failure) Qualifiers: Qualified Code(s): I50.9 - Heart failure, unspecified - Discharge Information Instructions: Heart Failure, [id number], Living With Anxiety Referrals: Beba Anderson, DO [Primary Care Provider] - Forms: ED Department Discharge Additional Instructions: Home to rest. Continue with current medications. Follow-up in clinic in 70-10 days, sooner if not improving. Minimize consumption of salty foods. Sepsis Event Note - Evaluation Sepsis Screening Result: No Definite Risk - Focused Exam Vital Signs: Vital Signs Temp Pulse Resp BP Pulse Ox 11/01/19 09:10 36.2 C 102 H 18 136/58 L 97 Date Exam was Performed: 11/01/19 Time Exam was Performed: 10:42 - Problem List Review Problem List Initiated/Reviewed/Updated: Yes - My Orders Last 24 Hours: My Active Orders 11/01/19 09:17 Cardiac Monitoring [RC] CONTINUOUS EKG Documentation Completion [RC] STAT Sodium Chloride 0.9% [Saline Flush] 10 ml FLUSH ASDIRECTED PRN Peripheral IV Insertion Adult [OM.PC] Routine - Assessment/Plan Last 24 Hours: My Active Orders 11/01/19 09:17 Cardiac Monitoring [RC] CONTINUOUS EKG Documentation Completion [RC] STAT Sodium Chloride 0.9% [Saline Flush] 10 ml FLUSH ASDIRECTED PRN Peripheral IV Insertion Adult [OM.PC] Routine Plan: Discussed findings with daughter and patient. At this time, we will not make any medication changes. She was given a one time dose of ativan in ER, but we will not start this at home as she was having some hallucinations when taking this in the past. Advised to follow-up in clinic in 7-10 days, sooner if increased shortness of breath, chest pain, palpitations, or lightheadedness. All questions were answered.
== END 2019-11-01 10:45 | disposition home or self-care (01) ==
LOC: VM.ED 09:09
DX: F41.9 Anxiety disorder, unspecified (principal); I11.0 Hypertensive heart disease with heart failure; I50.9 Heart failure, unspecified; I25.10 Atherosclerotic heart disease of native coronary artery without angina pectoris; E11.9 Type 2 diabetes mellitus without complications; J45.909 Unspecified asthma, uncomplicated; I48.91 Unspecified atrial fibrillation; Z79.82 Long term (current) use of aspirin; Z79.899 Other long term (current) drug therapy; Z88.2 Allergy status to sulfonamides; Z88.8 Allergy status to other drugs, medicaments and biological substances; Z88.5 Allergy status to narcotic agent; Z91.09 Other allergy status, other than to drugs and biological substances
CPT/HCPCS: 36415; 71046; 80053; 80162; 81001; 83735; 83880; 84100; 84443; 84484; 85025; 85610; 86140; 93005; 93010; 96374; 99284; 99285; A9270; J1940

== ENCOUNTER 2019-11-01 12:21 | Observation (INO) | payer MEDICARE, BC ==
--- NOTE | 2019-11-01 12:45 | EDM.PDOC ---
ED HPI GENERAL MEDICAL PROBLEM - General Chief Complaint: Laceration Time Seen by Provider: 11/01/19 12:21 Source of Information: Reports: Patient History Limitations: Reports: No Limitations - History of Present Illness INITIAL COMMENTS - FREE TEXT/NARRATIVE: Pt. presents to ER following a fall. She was seen in ER earlier this AM with complaints of shortness of breath and anxiety. Pt. was given a dose of oral ativan 1 mg PO while she was in ER. She was also given lasix 40mg IV. She was deemed stable for discharge. When she got home, she states that she became "woozy" and fell, sustaining a laceration to her ear. She did not have any chest pain or shortness of breath prior to the fall. No nausea, vomiting, or diarrhea. Denies any fever or chills. In reviewing the patient's chart and discussing things with her daughter, it was noted that she has had a decline in the past several months. She has had an approx. 50 # weight loss in the past 14 months or so. It was around that time that she was diagnosed with a-fib with RVR. Also, around that time, the patient started experiencing some hallucinations and increased falling, thought to be secondary to an antianxiety medication/mirtazepine which was discontinued at that time. Daughter states that the patient fell backward onto a chair and sustained a hematoma to her back. She states that this was over a week ago and the discomfort has improved. Pt. states that she has chronic neck pain; she is experiencing the discomfort today but usually does have some neck pain. She denies any chest pain, shortness of breath, palpitations, nausea, vomiting since the fall. She feels she is "woozy"after getting the oral ativan earlier in the day. Right Ear Pain Score (Numeric/FACES): 5 - Related Data Allergies Allergy/AdvReac Type Severity Reaction Status Date / Time aloe vera Allergy Itching Verified 11/01/19 12:35 moexipril [From Univasc] Allergy Cough Verified 11/01/19 12:35 phenazopyridine Allergy Nausea Verified 11/01/19 12:35 Sulfa (Sulfonamide Allergy Airway Verified 11/01/19 12:35 Antibiotics) Tightness terazosin Allergy Edema Verified 11/01/19 12:35 amlodipine besylate AdvReac Swelling Verified 11/01/19 12:35 [From Norvasc] lidocaine HCl AdvReac Hypotension Verified 11/01/19 12:35 [From Xylocaine] moexipril HCl [From Univasc] AdvReac Cough Verified 11/01/19 12:35 morphine AdvReac Hypotension Verified 11/01/19 12:35 Home Meds: Home Meds Acetaminophen [Tylenol] 650 mg PO Q4H PRN 12/30/15 [History] Aspirin [Adult Low Dose Aspirin EC] 81 mg PO DAILY 12/30/15 [History] Famotidine [Pepcid] 20 mg PO BEDTIME 12/30/15 [History] Montelukast [Singulair] 10 mg PO DAILY 12/30/15 [History] Nitroglycerin [Nitrostat] 0.4 mg SL ASDIRECTED PRN 12/30/15 [History] Propylene Glycol/Peg 400 [Systane 0.3-0.4% Eye Drops] 2 drop EYEBOTH BID [History] Simvastatin 20 mg PO BEDTIME 12/30/15 [History] allopurinoL [Allopurinol] 150 mg PO DAILY 12/30/15 [History] Acetaminophen [Tylenol Arthritis] 650 mg PO BEDTIME 02/13/16 [History] Albuterol/Ipratropium [Combivent Respimat] 2 puff IH QID PRN 02/13/16 [History] Bimatoprost [LUMIGAN 0.01% Ophth Soln] 1 drop EYEBOTH BEDTIME 02/14/16 [History] Losartan [Cozaar] 100 mg PO DAILY 08/04/18 [History] Apixaban [Eliquis] 5 mg PO BID 08/18/18 [History] Bumetanide [Bumex] 0.5 mg PO BID@0700,1400 PRN 01/18/19 [History] Digoxin [Digox] 0.125 mg PO DAILY 01/18/19 [History] Fluticasone Propionate [Flovent HFA] 1 puff INH BID 01/18/19 [History] Loperamide [Imodium AD] 2 cap PO ASDIRECTED PRN MDD 8 caps 01/18/19 [History] Cholecalciferol (Vitamin D3) [Vitamin D3] 2,000 unit PO DAILY 05/29/19 [History] guaiFENesin [Mucinex] 600 mg PO BID PRN 05/29/19 [History] Mirtazapine [Remeron] 7.5 mg PO BEDTIME #15 tab.dis 06/01/19 [Rx] Spironolactone [Aldactone] 25 mg PO DAILY #30 tablet 06/01/19 [Rx] Metoprolol Succinate [Toprol XL 100mg] 50 mg PO DAILY 09/25/19 [History] Glucosam/Chond/Collagen/Hyalur [Glucosamine Chondroitin] 1 each PO DAILY [History] Past Medical History HEENT History: Reports: Glaucoma, Impaired Vision, Macular Degeneration, Other ( See Below) Other HEENT History: thyrotoxic exophthalmos. Blepharitis Cardiovascular History: Reports: Afib, Blood Clots/VTE/DVT, CAD, Heart Failure, Hypertension, [place], Pulmonary Hypertension, SOB on Exertion, Other (See Below) Other Cardiovascular History: PE. Cardiac Artery bruit. Aortic/mitral insuffienency Respiratory History: Reports: Asthma, Other (See Below) Other Respiratory History: hypoxic with sleep Gastrointestinal History: Reports: Irritable Bowel Syndrome, Other (See Below) Other Gastrointestinal History: Pelvic mass Musculoskeletal History: Reports: Gout, Osteoarthritis Neurological History: Reports: Other (See Below) Other Neuro History: Peripheral neuropathy Psychiatric History: Reports: Anxiety Endocrine/Metabolic History: Reports: Diabetes, Type II, Osteopenia, Other (See Below) Other Endocrine/Metabolic History: Unintensonal weight loss. Diet controlled DM II. Graves disease Oncologic (Cancer) History: Reports: Other (See Below) Other Oncologic History: on her nose Dermatologic History: Reports: Other (See Below) Other Dermatologic History: hx of basal cell - Past Surgical History HEENT Surgical History: Reports: Cataract Surgery Cardiovascular Surgical History: Reports: Percutaneous Transluminal Angioplasty GI Surgical History: Reports: Appendectomy Neurological Surgical History: Reports: Other (See Below) Other Neurological Surgeries/Procedures: Spine surgury 1976 Musculoskeletal Surgical History: Reports: Knee Replacement Social & Family History - Family History Family Medical History: Noncontributory - Caffeine Use Caffeine Use: Reports: Coffee ED ROS GENERAL - Review of Systems Review Of Systems: See Below Constitutional: Reports: No Symptoms HEENT: Reports: No Symptoms. Denies: Vertigo, Vision Change Respiratory: Reports: No Symptoms Cardiovascular: Reports: Lightheadedness. Denies: Chest Pain, Edema, Syncope Endocrine: Reports: No Symptoms GI/Abdominal: Reports: No Symptoms : Reports: No Symptoms Musculoskeletal: Reports: Neck Pain Skin: Reports: Other (skin tear right ear) Neurological: Reports: Dizziness, Difficulty Walking Psychiatric: Reports: No Symptoms Hematologic/Lymphatic: Reports: No Symptoms Immunologic: Reports: No Symptoms ED EXAM, SKIN/RASH Exam: See Below Exam Limited By: No Limitations General Appearance: Alert, WD/WN, No Apparent Distress Eye Exam: Bilateral Eye: PERRL Ears: Normal External Exam, Normal Canal, Hearing Grossly Normal, Normal TMs Nose: Normal Inspection, Normal Mucosa, No Blood Throat/Mouth: Normal Inspection, Normal Lips, Normal Teeth, Normal Gums, Normal Oropharynx, Normal Voice, No Airway Compromise Head: Atraumatic, Normocephalic Neck: Normal Inspection, Supple, Non-Tender, Full Range of Motion Respiratory/Chest: No Respiratory Distress, Lungs Clear, Normal Breath Sounds, No Accessory Muscle Use, Chest Non-Tender Cardiovascular: Normal Peripheral Pulses, Regular Rate, Rhythm, No Edema, No Gallop, No JVD, No Murmur, No Rub Peripheral Pulses: 2+: Radial (L), Radial (R) GI/Abdominal: Normal Bowel Sounds, Soft, Non-Tender, No Organomegaly, No Distention, No Abnormal Bruit, No Mass (Female) Exam: Normal External Exam, Normal Speculum Exam, Normal Bimanual Exam Rectal (Female) Exam: Normal Exam, Normal Rectal Tone Back Exam: Normal Inspection, Full Range of Motion, NT Extremities: Normal Inspection, Normal Range of Motion, Non-Tender, No Pedal Edema, Normal Capillary Refill Neurological: Alert, Oriented, CN II-XII Intact, Normal Cognition, Normal Reflexes, No Motor/Sensory Deficits Psychiatric: Normal Affect, Normal Mood Skin: Warm, Dry, Intact, Normal Color, No Rash (2cm complete skin tear of right ear) Location, Skin: Other (right ear 1cm into the posterior aspect of helix) Lymphatic: No Adenopathy ED SKIN PROCEDURES - Laceration/Wound Repair Right Posterior Ear Appearance: Clean Anesthetic Type: Local Local Anesthesia - Lidocaine (Xylocaine): 1% Plain Local Anesthetic Volume: 2cc Skin Prep: Chlorhexidine (Hibiciens) Closed with: Sutures Lac/Wound length In cm: 2 Suture Size: 4-0 # of Sutures: 3 Suture Type: Nylon Course - Vital Signs Last Recorded V/S: Last Vital Signs Temp 36.7 C 11/01/19 14:45 Pulse 75 11/01/19 14:45 Resp 18 11/01/19 14:45 BP 152/100 H 11/01/19 14:45 Pulse Ox 95 11/01/19 14:45 - Orders/Labs/Meds Orders: Active Orders 24 hr Category Date Time Status Cervical Spine wo Cont [CT] Stat Exams 11/01/19 12:29 Taken Head wo Cont [CT] Stat Exams 11/01/19 12:25 Taken Medication Orders Acetaminophen (Tylenol) 650 mg PO Q4H PRN PRN Reason: Pain Acetaminophen (Tylenol Arthritis Pain) 650 mg PO BEDTIME [facility] Allopurinol (Zyloprim) 150 mg PO DAILY [facility] Aspirin (Halfprin) 81 mg PO DAILY [facility] Bumetanide (Bumex) 0.5 mg PO BID@0700,1400 PRN PRN Reason: fluid overload Famotidine (Pepcid) 20 mg PO BEDTIME [facility] Guaifenesin (Mucinex) 600 mg PO BID PRN PRN Reason: Congestion Montelukast Sodium (Singulair) 10 mg PO DAILY [facility] Non-Formulary Medication (Albuterol/Ipratropium [Combivent Respimat]) 2 puff IH QID PRN PRN Reason: Shortness of Breath Non-Formulary Medication (Apixaban [Eliquis]) 5 mg PO BID [facility] Non-Formulary Medication (Bimatoprost [Lumigan 0.01% Ophth Soln]) 1 drop EYEBOTH BEDTIME [facility] Non-Formulary Medication (Cholecalciferol (Vitamin D3) [Vitamin D3]) 2,000 unit PO DAILY [facility] Non-Formulary Medication (Fluticasone Propionate [Flovent Hfa]) 1 puff INH BID [facility] Non-Formulary Medication (Glucosam/Chond/Collagen/Hyalur [Glucosamine Chondroitin]) 1 each PO DAILY [facility] Non-Formulary Medication (Losartan [Cozaar]) 100 mg PO DAILY [facility] Non-Formulary Medication (Metoprolol Succinate [Toprol Xl 100mg]) 50 mg PO DAILY [facility] Non-Formulary Medication (Propylene Glycol/Peg 400 [Systane 0.3-0.4% Eye Drops] ) 2 drop EYEBOTH BID [facility] Simvastatin (Zocor) 20 mg PO BEDTIME [facility] Spironolactone (Aldactone) 25 mg PO DAILY [facility] Meds: Medications Generic Name Dose Route Start Last Admin Trade Name Freq PRN Reason Stop Dose Admin Acetaminophen 650 mg 11/01/19 15:24 Tylenol PO Q4H PRN Pain Acetaminophen 650 mg 11/01/19 20:00 Tylenol Arthritis Pain PO BEDTIME [facility] Allopurinol 150 mg 11/02/19 08:00 Zyloprim PO DAILY [facility] Aspirin 81 mg 11/02/19 08:00 Halfprin PO DAILY [facility] Bumetanide 0.5 mg 11/02/19 07:00 Bumex PO BID@0700,1400 PRN fluid overload Famotidine 20 mg 11/01/19 20:00 Pepcid PO BEDTIME [facility] Guaifenesin 600 mg 11/01/19 15:24 Mucinex PO BID PRN Congestion Montelukast Sodium 10 mg 11/02/19 08:00 Singulair PO DAILY [facility] Non-Formulary Medication 2 puff 11/01/19 15:24 Albuterol/Ipratropium [Combivent Respimat] IH QID PRN Shortness of Breath Non-Formulary Medication 5 mg 11/01/19 20:00 Apixaban [Eliquis] PO BID [facility] Non-Formulary Medication 1 drop 11/01/19 20:00 Bimatoprost [Lumigan 0.01% Ophth Soln] EYEBOTH BEDTIME [facility] Non-Formulary Medication 2,000 unit 11/02/19 08:00 Cholecalciferol (Vitamin D3) [Vitamin D3] PO DAILY [facility] Non-Formulary Medication 1 puff 11/01/19 20:00 Fluticasone Propionate [Flovent Hfa] INH BID [facility] Non-Formulary Medication 1 each 11/02/19 08:00 Glucosam/Chond/Collagen/Hyalur [Glucosamine Chondroitin] PO DAILY [facility] Non-Formulary Medication 100 mg 11/02/19 08:00 Losartan [Cozaar] PO DAILY [facility] Non-Formulary Medication 50 mg 11/02/19 08:00 Metoprolol Succinate [Toprol Xl 100mg] PO DAILY [facility] Non-Formulary Medication 2 drop 11/01/19 20:00 Propylene Glycol/Peg 400 [Systane 0.3-0.4% Eye Drops] EYEBOTH BID [facility] Simvastatin 20 mg 11/01/19 20:00 Zocor PO BEDTIME [facility] Spironolactone 25 mg 11/02/19 08:00 Aldactone PO DAILY [facility] Departure - Departure Time of Disposition: 14:33 Disposition: Refer to Observation Clinical Impression: Fall, Laceration - Discharge Information Sepsis Event Note - Evaluation Sepsis Screening Result: No Definite Risk - Focused Exam Vital Signs: Vital Signs Temp Pulse Resp BP Pulse Ox 11/01/19 12:21 36.4 C 95 18 129/75 95 Date Exam was Performed: 11/01/19 Time Exam was Performed: 15:33 - Problem List Review Problem List Initiated/Reviewed/Updated: Yes - My Orders Last 24 Hours: My Active Orders 11/01/19 12:25 Head wo Cont [CT] Stat 11/01/19 12:29 Cervical Spine wo Cont [CT] Stat - Assessment/Plan Admission H&P: Please use this note as an admission H&P Last 24 Hours: My Active Orders 11/01/19 12:25 Head wo Cont [CT] Stat 11/01/19 12:29 Cervical Spine wo Cont [CT] Stat Plan: Pt. was admitted observation. She is quite unsteady, likely partially due to the ativan she got earlier. Family is concerned that the patient is not able to take care of herself at her assisted living apartment. She has been having problems with memory loss, frequent calls, and fatigue. Will order an OT cognitive eval and PT eval for the patient. Will also have social work discuss things with family and patient as well. Stop mirtazepine. Patient and family have not discussed code status. They will be discussing this at this time as well.
[2019-11-01] MEDS ORDERED: guaiFENesin 600 MG Tab.ER PO PRN (15:24)
[2019-11-01] MEDS ORDERED: Acetaminophen 325 MG Tab PO PRN (15:24)
[2019-11-01] MEDS ORDERED: Albuterol/Ipratropium 3.0-0.5 MG/3 ML Neb Soln INH PRN (17:15)
[2019-11-01] MEDS ORDERED: Acetaminophen 650 MG Tab.ER PO SCH (20:00)
[2019-11-01] MEDS ORDERED: Famotidine 20 MG Tab PO SCH (20:00)
[2019-11-01] MEDS ORDERED: Simvastatin 20 MG Tab PO SCH (20:00)
[2019-11-01] MEDS ORDERED: FLUTICASONE PROPIONATE INH SCH (20:00)
[2019-11-01] MEDS: Apixaban 2.5 MG Tab PO SCH (20:16)
[2019-11-01] MEDS: Hypromellose 0.3% Ophth Soln 15 ML Bottle EYEBOTH SCH (20:16)
[2019-11-01] MEDS ORDERED: LUMIGAN 0.01% EYEBOTH SCH (22:15)
[2019-11-02] MEDS ORDERED: Bumetanide 1 MG Tab PO PRN (07:00)
[2019-11-02] MEDS ORDERED: Spironolactone 25 MG Tab PO SCH (08:00)
[2019-11-02] MEDS ORDERED: Aspirin 81 MG Tab.EC PO SCH (08:00)
[2019-11-02] MEDS ORDERED: Allopurinol 300 MG Tab PO SCH (08:00)
[2019-11-02] MEDS ORDERED: Montelukast 10 MG Tab PO SCH (08:00)
[2019-11-02] MEDS ORDERED: Losartan 50 MG Tab PO SCH (08:00)
[2019-11-02] MEDS: Apixaban 2.5 MG Tab PO SCH (08:00)
[2019-11-02] MEDS ORDERED: Cholecalciferol (Vitamin D3) 25 MCG Tab PO SCH (08:00)
[2019-11-02] MEDS ORDERED: Metoprolol Succinate 50 MG Tab.ER PO SCH (08:00)
[2019-11-02 08:05] VITALS: BP 147/88; PULSE 123
[2019-11-02] MEDS: Hypromellose 0.3% Ophth Soln 15 ML Bottle EYEBOTH SCH (08:05)
--- NOTE | 2019-11-03 03:22 | PCM.DCSUM1 ---
Discharge Summary - Hospital Course Free Text/Narrative:: Pt. was hospitalized 11/01/2019 with complaints of weakness shortness of breath, and subsequent fall. Pt. sustained an approx. 2.5cm laceration to her R ear. after she was discharged following receiving some ativan and IV lasix. Pt. states that she slept well through the night. She states that she ate her breakfast and tolerated it well. Pt. is adamant that she be discharged this AM and offers no complaints. Diagnosis: Stroke: No - Discharge Data Discharge Date: 11/02/19 Discharge Disposition: Home, Self-Care 01 Condition: Good - Referral to Home Health Primary Care Physician: Beba Anderson, DO - Discharge Diagnosis/Problem(s) (1) Fall SNOMED Code(s): 8736203, 249121813 ICD Code: W19.XXXA - UNSPECIFIED FALL, INITIAL ENCOUNTER Status: Acute (2) Laceration SNOMED Code(s): 893638416 ICD Code: [id number] - Status: Acute (3) Anxiety SNOMED Code(s): 97387054 ICD Code: F41.9 - ANXIETY DISORDER, UNSPECIFIED Status: Acute (4) Congestive heart failure SNOMED Code(s): 83310875 ICD Code: I50.9 - HEART FAILURE, UNSPECIFIED Status: Acute Priority: Medium Qualifiers: Qualified Code(s): I50.9 - Heart failure, unspecified - Patient Summary/Data Consults: Consultations 11/01/19 15:53 Consult to Physical Therapy [PT Evaluation and Treatment] [CONS] Routine 11/01/19 15:54 OT Evaluation and Treatment [CONS] Routine 11/01/19 15:55 Consult to Case Management/Biometrics Head [CONS] Routine - Patient Instructions Diet: Regular Diet as Tolerated - Discharge Plan Home Medications: Home Meds Acetaminophen [Tylenol] 650 mg PO Q4H PRN 12/30/15 [History] Aspirin [Adult Low Dose Aspirin EC] 81 mg PO DAILY 12/30/15 [History] Famotidine [Pepcid] 20 mg PO BEDTIME 12/30/15 [History] Montelukast [Singulair] 10 mg PO DAILY 12/30/15 [History] Nitroglycerin [Nitrostat] 0.4 mg SL ASDIRECTED PRN 12/30/15 [History] Propylene Glycol/Peg 400 [Systane 0.3-0.4% Eye Drops] 2 drop EYEBOTH BID [History] Simvastatin 20 mg PO BEDTIME 12/30/15 [History] allopurinoL [Allopurinol] 150 mg PO DAILY 12/30/15 [History] Acetaminophen [Tylenol Arthritis] 650 mg PO BEDTIME 02/13/16 [History] Albuterol/Ipratropium [Combivent Respimat] 2 puff IH QID PRN 02/13/16 [History] Bimatoprost [LUMIGAN 0.01% Ophth Soln] 1 drop EYEBOTH BEDTIME 02/14/16 [History] Losartan [Cozaar] 100 mg PO DAILY 08/04/18 [History] Apixaban [Eliquis] 5 mg PO BID 08/18/18 [History] Bumetanide [Bumex] 0.5 mg PO BID@0700,1400 PRN 01/18/19 [History] Digoxin [Digox] 0.125 mg PO DAILY 01/18/19 [History] Fluticasone Propionate [Flovent HFA] 1 puff INH BID 01/18/19 [History] Loperamide [Imodium AD] 2 cap PO ASDIRECTED PRN MDD 8 caps 01/18/19 [History] Cholecalciferol (Vitamin D3) [Vitamin D3] 2,000 unit PO DAILY 05/29/19 [History] guaiFENesin [Mucinex] 600 mg PO BID PRN 05/29/19 [History] Spironolactone [Aldactone] 25 mg PO DAILY #30 tablet 06/01/19 [Rx] Metoprolol Succinate [Toprol XL 100mg] 50 mg PO DAILY 09/25/19 [History] Glucosam/Chond/Collagen/Hyalur [Glucosamine Chondroitin] 1 each PO DAILY [History] Forms: ED Department Discharge Referrals: Beba Anderson DO [Primary Care Provider] - - Discharge Summary/Plan Comment DC Time >30 min.: Yes Discharge Summary/Plan Comment: Pt. will be discharged this AM. Again, she offers no complaints. Family is concerned that the patient may be getting to the point where she needs to move to a higher level of care/intermediate. Pt. daughter states that all members of the family will be out of the state in approx. 10 days, and they are concerned that no one will be able to look in on the patient. Discussed respite care/self pay swingbed and advised them to discuss this with the pt. PCP, . Recheck in clinic this week. Suture removed from R ear in 10 days. A total of 3 interrupted sutures were placed. Return to ER if increased shortness of breath, lightheadedness, weakness, or chest pain. - General Info Date of Service: 11/02/19 Functional Status: Reports: Pain Controlled - Review of Systems General: Reports: No Symptoms HEENT: Reports: No Symptoms Pulmonary: Reports: No Symptoms Cardiovascular: Reports: No Symptoms Gastrointestinal: Reports: No Symptoms Genitourinary: Reports: No Symptoms Musculoskeletal: Reports: No Symptoms Skin: Reports: No Symptoms Neurological: Reports: No Symptoms Psychiatric: Reports: No Symptoms - Patient Data Vitals - Most Recent: Last Vital Signs Temp 36.2 C 11/02/19 04:33 Pulse 123 H 11/02/19 08:03 Resp 18 11/02/19 04:33 BP 147/88 H 11/02/19 08:03 Pulse Ox 94 L 11/02/19 07:42 Weight - Most Recent: 62.505 kg I&O - Last 24 hours: Intake & Output 11/02/19 11/02/19 11/03/19 14:59 22:59 06:59 Intake Total 240 Balance 240 Med Orders - Current: Current Medications Discontinued Medications Acetaminophen (Tylenol) 650 mg PO Q4H PRN PRN Reason: Pain Acetaminophen (Tylenol Arthritis Pain) 650 mg PO BEDTIME [facility] Last Admin: 11/01/19 20:16 Dose: 650 mg Albuterol/Ipratropium (Duoneb 3.0-0.5 Mg/3 Ml) 3 ml INH QID PRN PRN Reason: Shortness of Breath Allopurinol (Zyloprim) 150 mg PO DAILY [facility] Last Admin: 11/02/19 08:03 Dose: 150 mg Apixaban (Eliquis) 5 mg PO BID [facility] Last Admin: 11/02/19 08:00 Dose: 5 mg Artificial Tears (Genteal Mild To Moderate Ophth Soln) 0 ml EYEBOTH BID [facility] Last Admin: 11/02/19 08:05 Dose: 1 drop Aspirin (Halfprin) 81 mg PO DAILY [facility] Last Admin: 11/02/19 08:04 Dose: 81 mg Bumetanide (Bumex) 0.5 mg PO BID@0700,1400 PRN PRN Reason: fluid overload Cholecalciferol (Vitamin D3) 50 mcg PO DAILY [facility] Last Admin: 11/02/19 08:04 Dose: 50 mcg Famotidine (Pepcid) 20 mg PO BEDTIME [facility] Last Admin: 11/01/19 20:16 Dose: 20 mg Guaifenesin (Mucinex) 600 mg PO BID PRN PRN Reason: Congestion Losartan Potassium (Cozaar) 100 mg PO DAILY [facility] Last Admin: 11/02/19 08:00 Dose: 100 mg Metoprolol Succinate (Toprol Xl) 50 mg PO DAILY [facility] Last Admin: 11/02/19 08:03 Dose: 50 mg Montelukast Sodium (Singulair) 10 mg PO DAILY [facility] Last Admin: 11/02/19 08:04 Dose: 10 mg Lumigan 0.01% Ophth ( Own Med) 0 drop EYEBOTH BEDTIME [facility] Last Admin: 11/02/19 02:11 Dose: Not Given Non-Formulary Medication (Fluticasone Propionate [Flovent Hfa]) 1 puff INH BID [facility] Non-Formulary Medication (Glucosam/Chond/Collagen/Hyalur [Glucosamine Chondroitin]) 1 each PO DAILY [facility] Simvastatin (Zocor) 20 mg PO BEDTIME [facility] Last Admin: 11/01/19 20:16 Dose: 20 mg Spironolactone (Aldactone) 25 mg PO DAILY [facility] Last Admin: 11/02/19 08:04 Dose: 25 mg - Exam Quality Assessment: Reports: Supplemental Oxygen General: Reports: Alert, Oriented HEENT: Reports: Pupils Equal, Pupils Reactive, EOMI, Mucous Membr. Moist/[place] Neck: Reports: Supple Lungs: Reports: Clear to Auscultation, Normal Respiratory Effort Cardiovascular: Reports: Regular Rate, Regular Rhythm GI/Abdominal Exam: Normal Bowel Sounds, Soft, Non-Tender, No Organomegaly, No Distention, No Abnormal Bruit, No Mass, Pelvis Stable (Female) Exam: Normal External Exam, Normal Speculum Exam, Normal Bimanual Exam Rectal (Female) Exam: Deferred Back Exam: Reports: Normal Inspection, Full Range of Motion Extremities: Normal Inspection, Normal Range of Motion, Non-Tender, No Pedal Edema, Normal Capillary Refill Skin: Reports: Warm, Dry, Intact Neurological: Reports: No New Focal Deficit Psy/Mental Status: Reports: Alert, Normal Affect, Normal Mood
--- NOTE | 2019-11-03 10:54 | CT ---
[id number] CT/CT Head WO IV EXAM: CT Head WO IV CLINICAL DATA: TRAUMA ANTICOAGULATED PATIENT COMPARISON: NO PREVIOUS SIMILAR EXAM IS AVAILABLE FOR COMPARISON. FINDINGS: There is no mass or mass effect. There is no hemorrhage or hydrocephalus. There is widening of the subarachnoid spaces over the right frontal parietal region appearing chronic. There appear to be subacute or chronic encephalomalaciac changes in the right inferior temporal region on image 23, series 2 IMPRESSION: NO PLAIN CT EVIDENCE OF ACUTE INTRACRANIAL PROCESS. Lex Muniz MD 11/03/19 1053 Thank you for allowing us to participate in the care of your patient.
--- NOTE | 2019-11-03 10:55 | CT ---
[id number] CT/CT Cervical Spine WO IV Exam: CT Cervical Spine WO IV Clinical Data: TRAUMA COMPARISON: NO PREVIOUS SIMILAR EXAM IS AVAILABLE FINDINGS: No fracture or subluxation is seen There are multilevel significant degenerative changes The prevertebral soft tissues are unremarkable IMPRESSION: NO FRACTURE OR SUBLUXATION Lex Muniz MD 11/03/19 1053 Thank you for allowing us to participate in the care of your patient.
== END 2019-11-02 11:20 | disposition home or self-care (01) ==
LOC: VM.ED 12:21 → VM.MS 14:09
PROVIDERS: ADMIT Physician Assistant; ATTEND Physician Assistant
DX: I11.0 Hypertensive heart disease with heart failure (principal); I50.9 Heart failure, unspecified; S01.311A Laceration without foreign body of right ear, initial encounter; F41.9 Anxiety disorder, unspecified; I25.10 Atherosclerotic heart disease of native coronary artery without angina pectoris; J45.909 Unspecified asthma, uncomplicated; M10.9 Gout, unspecified; M19.90 Unspecified osteoarthritis, unspecified site; E11.9 Type 2 diabetes mellitus without complications; E11.42 Type 2 diabetes mellitus with diabetic polyneuropathy; W19.XXXA Unspecified fall, initial encounter; Z91.09 Other allergy status, other than to drugs and biological substances; Z88.8 Allergy status to other drugs, medicaments and biological substances; Z88.2 Allergy status to sulfonamides; Z88.3 Allergy status to other anti-infective agents; Z88.5 Allergy status to narcotic agent; Z79.82 Long term (current) use of aspirin; Z79.01 Long term (current) use of anticoagulants; Z79.51 Long term (current) use of inhaled steroids; Z79.899 Other long term (current) drug therapy
CPT/HCPCS: 12011; 70450; 72125; 94760; 99217; 99219; 99284; A9270; G0378; 36415; 71046; 80053; 80162; 81001; 83735; 83880; 84100; 84443; 84484; 85025; 85610; 86140; 93005; 93010; 96374; 99285-25; J1940

== ENCOUNTER 2019-11-03 16:53 | Inpatient (IN) | payer MEDICARE, BC ==
[2019-11-03] MEDS ORDERED: Ondansetron 4 MG Tab.DIS PO PRN (17:48)
[2019-11-03] MEDS ORDERED: Albuterol/Ipratropium 3.0-0.5 MG/3 ML Neb Soln INH PRN (17:52)
[2019-11-03] MEDS ORDERED: Acetaminophen 325 MG Tab PO PRN (17:52)
[2019-11-03] MEDS ORDERED: Loperamide 2 MG Cap PO PRN (17:52)
[2019-11-03] MEDS ORDERED: Nitroglycerin 0.4 MG Tab.SL SL PRN (17:52)
[2019-11-03] MEDS: Acetaminophen 325 MG Tab PO PRN (19:40)
[2019-11-03] MEDS: Famotidine 20 MG Tab PO SCH (19:42)
[2019-11-03] MEDS: Simvastatin 20 MG Tab PO SCH (19:42)
[2019-11-03] MEDS: Haloperidol 0.5 MG Tab PO SCH (19:42)
[2019-11-03] MEDS: Apixaban 2.5 MG Tab PO SCH (19:42)
[2019-11-03] MEDS: Latanoprost 0.005% Ophth Soln 2.5 ML Bottle EYEBOTH SCH (19:43)
[2019-11-04] MEDS: Citalopram 10 MG Tab PO SCH (07:54)
[2019-11-04] MEDS: Psyllium 0.52 GM Cap PO SCH (07:55)
[2019-11-04] MEDS: Montelukast 10 MG Tab PO SCH (07:55)
[2019-11-04] MEDS: Cholecalciferol (Vitamin D3) 25 MCG Tab PO SCH (07:55)
[2019-11-04] MEDS: Aspirin 81 MG Tab.EC PO SCH (07:55)
[2019-11-04] MEDS: Apixaban 2.5 MG Tab PO SCH ×2 (07:56→20:21)
[2019-11-04] MEDS: Allopurinol 300 MG Tab PO SCH (07:56)
[2019-11-04] MEDS: Losartan 50 MG Tab PO SCH (07:56)
[2019-11-04] MEDS: Digoxin 125 MCG Tab PO SCH (07:57)
[2019-11-04] MEDS ORDERED: Non-Formulary Medication 1 Each (Metoprolol Succinate [Toprol Xl 100mg] 50 MG) PO SCH (08:00)
[2019-11-04] MEDS ORDERED: Metoprolol Tartrate 50 MG Tab PO SCH (08:00)
[2019-11-04] MEDS: Hypromellose 0.3% Ophth Soln 15 ML Bottle EYEBOTH SCH ×2 (10:44→20:20)
[2019-11-04] MEDS: Glucosamine 500 MG Cap PO SCH (10:45)
[2019-11-04] MEDS: Bumetanide 1 MG Tab PO SCH (10:46)
--- NOTE | 2019-11-04 11:17 | PCM.HP.2 ---
H&P History of Present Illness - General Date of Service: 11/03/19 Admit Problem/Dx: Admission Diagnosis/Problem Admission Diagnosis/Problem Weakness - History of Present Illness Initial Comments - Free Text/Narative: Assessment / Plan Hospital discharge follow-up Weight loss, unintentional - COMPLETE BLOOD COUNT WITH DIFFERENTIAL; Future - COMPREHENSIVE METABOLIC PANEL; Future - TSH REFLEX; Future - VITAMIN B12 REFLEX TO METHYLMALONIC ACID; Future - FOLATE, SERUM; Future - PROTEIN SERUM ELECTROPHORESIS, REFLEX TO IMMUNOFIX; Future - CA 125 ([facility]); Future - ESR; Future - C-REACTIVE PROTEIN (INFLAMMATION); Future - MRI BRAIN WITHOUT CONTRAST; Future - ECHO ADULT COMPLETE; Future Macrocytic anemia - COMPLETE BLOOD COUNT WITH DIFFERENTIAL; Future - TSH REFLEX; Future - VITAMIN B12 REFLEX TO METHYLMALONIC ACID; Future - FOLATE, SERUM; Future MGUS (monoclonal gammopathy of unknown significance) - PROTEIN SERUM ELECTROPHORESIS, REFLEX TO IMMUNOFIX; Future Encephalomalacia - MRI BRAIN WITHOUT CONTRAST; Future Ovarian mass - CA 125 ([facility]); Future Chronic systolic CHF (congestive heart failure) (HCC) - ECHO ADULT COMPLETE; Future - BRAIN NATRIURETIC PEPTIDE; Future Other abnormal tumor markers - CA 125 ([facility]); Future B12 deficiency Plan:ReAdmit to hospital for gross failure to thrive along with other undifferentiated problems. She has some mild memory issues along with some hallucination-type features. Can recall her age birthday and current date fairly easily. She can recall two of three delayed words. Her clock drawing is incorrect but she has significant visual deficit from her macular degeneration.Not classic Alzheimer's picture. Has had a couple spells, multi-infarct could be in differential, did have some encephalomalacia by CT and does have A. fib history. Continue anticoagulation. We'll proceed to MRI. OT consult for MMSE, ADLs etc. SW to see what would be available for [facility]. Try low dose haldol at night for insomnia, anxiety type spells with some nocturnal hallucinations a josie bautista. Remeron and seroquel didn't work well. She is quite B-12 deficient, this could cause a lot of her symptoms and would also be easily correctable. Start high-dose 1mgIM every other day therapy for two weeks. PT consult for gait. Could be having some dorsal column issues secondary to above. She had some worsening of her heart failure by chest x-ray. She has some new inferior Q waves and some lateral T-wave inversions which then present intermittently in the past. Troponin was negative, denies any angina. Start low-dose Bumex, otherwise appears relatively euvolemic by the rest of her exam. Recommend repeat echo. Chronic weight loss remains unexplained. It could be from above neuropsych issues, sometimes wasting is seen with chronic heart failure as well. Protein and electrolytes otherwise intact. No gross malignancy or infectious process by acute phase reactants and sullivan scan CT that was done a couple months ago. Ovarian cystic lesion NOS<5cm = likely benign, just has trace elevation of CA 125. Recommend repeat imaging of the ovary along with CA 125 in about 3mo. Unclear if she would be surgical candidate at this point given age and above issues. Given history of MGUS, mild, we will repeat SPEP. Otherwise no findings of gross diffuse disease by chemistry or recent imaging. Code level 1 chosen at this time. No follow-ups on file. HPI / History / ROS CC: Hospital F/[facility]. Discharged 11/03/19. Anxiety Confusion Falls HPI: [facility] 11/02/19. Admitted to [facility] 11/02/19. Discharged 11/03/19. Family believes discharged too soon. Left yesterday, Week and dizzy with more falls. Family notes progressive decline past weeks to months. Has anxiety spells viral at night. Up a lot of the night. Remeron and seroquel didn't help. Describe having visual hallucination type issues where she can see her room but it's not her room. Known systolic CHF by last echo and had some pulm edema by CXR. BNP >7000 was higher than last time. Trop ok. Old ant Qs by EKG but inf Qs appeared new since 1y ago. Some chronic encephalomalacia by CT w/o acute findings. Wt loss about 60lbs in past year+ or so. Panscan 3mo ago without gross abnormalities. Lesion to ovary that appeared cystic by f/u US although had grown slightly. On abxs recently for pyuria. Remote smoking hx. FH CHF Medications w MedicationsPriortoVisit w Outpatient Medications Prior to Visit Medication Sig Dispense Refill citalopram (CELEXA) 10 mg tablet Take 1 tablet (10 mg) by mouth 1 time per day 90 tablet 4 psyllium (METAMUCIL) 0.52 g capsule Take 1 capsule by mouth 1 time per day 30 capsule 0 allopurinol (ZYLOPRIM) 300 mg tablet Take 1 tablet (300 mg) by mouth 1 time per day 30 tablet 0 apixaban (ELIQUIS) 5 MG tablet Take 1 tablet (5 mg) by mouth 2 times a day 0 albuterol-ipratropium (COMBIVENT RESPIMAT) 20-100 MCG/ACT inhaler Inhale 1 puff orally 3 Inhaler 4 digoxin (LANOXIN) 0.125 mg tablet Take 1 tablet (0.125 mg) by mouth 1 time per day 0 famotidine (PEPCID) 20 mg tablet Take 1 tablet (20 mg) by mouth every night at bedtime 0 fluticasone-salmeterol (ADVAIR) 250-50 mcg/dose discus Inhale 1 puff orally 2 times a day Rinse mouth after use. 3 Inhaler 4 losartan 100 mg tablet Take 1 tablet (100 mg) by mouth 1 time per day 30 tablet 0 metoprolol tartrate (LOPRESSOR) 50 mg tablet Take 1 tablet (50 mg) by mouth 1 time per day 90 tablet 4 simvastatin (ZOCOR) 20 mg tablet Take 1 tablet (20 mg) by mouth every night at bedtime 30 tablet 0 spironolactone (ALDACTONE) 25 mg tablet Take 1 tablet (25 mg) by mouth 1 time a day in the morning 90 tablet 4 polyethyl glycol-propyl glycol (SYSTANE) 0.4-0.3 % SOLN Place 1 drop into both eyes Every 4 hours as needed aspirin 81 mg enteric coated tablet Take 81 mg by mouth 1 time per day acetaminophen (TYLENOL) 325 mg tablet Take 325 mg by mouth Every 4 hours as needed for mild pain loperamide (IMODIUM) 2 mg capsule Take 2 mg by mouth Every hour as needed Take 2 caps after the first loose stool , then 1 cap after each loose stool, but no more than 8 caps per day. vitamin D3, cholecalciferol, 1000 units tablet Take 2,000 Units by mouth 1 time per day nitroglycerin (NITROSTAT) 0.4 mg sublingual tablet Dissolve 0.4 mg under the tongue Every 5 minutes as needed for chest pain May repeat every 5 minutes for a total of 3 doses. glucosamine-chondroitin (JOINT FLEX) 500-400 mg capsule Take 1 capsule by mouth 1 time per day bimatoprost (LUMIGAN) 0.01 % ophthalmic solution Place 1 drop into both eyes every night at bedtime montelukast (SINGULAIR) 10 mg tablet Take 10 mg by mouth every night at bedtime amoxicillin (AMOXIL) 500 mg capsule Take 1 capsule (500 mg) by mouth 3 times a day 15 capsule 0 No facility-administered medications prior to visit. Allergies w w w w w Allergies l Allergen l Reactions w w Aloe Vera w Itching and Other (Specify in Comments) w w w burning w w Morphine Sulfate w Other (Specify in Comments) w w w Feels like lightening going through body, " BP dropped real fast" w w Norvasc [Amlodipine Besylate] w Other (Specify in Comments) w w w Leg swelling at 10mg w w Phenazopyridine w Nausea w w Sulfa Drugs w Unknown/Not Verified w w Terazosin Hcl w Edema w w Univasc [Moexipril Hydrochloride] w Other (Specify in Comments) w w w cough w w Xylocaine [Lidocaine] w Other (Specify in Comments) w w w Low BP Problem List w w w Patient Active Problem List l Diagnosis w w Thyrotoxic exophthalmos w w Hypertension w w CAD (coronary artery disease) w w Gout w w Glaucoma w w Mild depression (HCC) w w Aortic insufficiency w w Asthma w w Mitral insufficiency w w Diastolic CHF (HCC) w w Other chronic allergic conjunctivitis w w Blepharitis w w Cyst of Bartholin's gland w w Peripheral neuropathy w w MGUS (monoclonal gammopathy of unknown significance) w w Actinic keratosis w w Acute dermatitis due to solar radiation w w Primary open angle glaucoma w w Nonexudative senile macular degeneration of retina w w 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) w w History of diabetes mellitus w w Macular degeneration - Both w w Glaucoma - Both w w Presbyopia - Both w w Pulmonary embolism (HCC) w w Hyperlipidemia with target LDL less than 100 w w S/P knee replacement w w Pulmonary hypertension (HCC) w w Carotid artery bruit w w GERD (gastroesophageal reflux disease) w w IBS (irritable bowel syndrome) w w H/O Graves' disease w w Sleep related hypoxia w w Osteopenia w w Back pain w w Anxiety w w Recurrent UTI w w Skin cancer, basal cell w w NSTEMI (non-ST elevated myocardial infarction) (HCC) w w On apixaban therapy w w Paroxysmal atrial fibrillation (HCC) w w B12 deficiency Medical/Surgical/Family/SocialHistory w PastMedicalHistory w Past Medical History: Diagnosis Date Aortic valve disorders 11/16/2005 Arthritis Arthritis of knee, right 01/01/2013 Asthma Basal cell carcinoma of skin Congestive heart failure, unspecified 05/29/2007 Coronary atherosclerosis of [place] coronary artery 10/19/2005 DM w/o Complication Type II 12/03/2007 Essential hypertension, benign 10/19/2005 Glaucoma H/O Graves' disease IBS (irritable bowel syndrome) Macular degeneration Myocardial infarction (HCC) 1989 Neuropathy feet Other and unspecified hyperlipidemia 01/04/2006 Other and unspecified hyperlipidemia 01/04/2006 Squamous cell carcinoma w PastSurgicalHistory w Past Surgical History: Procedure Laterality Date APPENDECTOMY CATARACT EXTRACTION CATARACT W PHACO Bilateral cataracts CORE NEEDLE BIOPSY core bx lt 2010 benign CORONARY ANGIOPLASTY EYE SURGERY Retinal EYE SURGERY 3 surgeries for exophthalmus JOINT REPLACEMENT R knee in 2012 LESION REMOVAL (OP) on nose, "cancerous" SKIN BIOPSY SPINE SURGERY 1976 Fusion TONSILLECTOMY TOTAL KNEE Right 03/18/2013 Procedure: RIGHT TOTAL KNEE ARTHROPLASTY; RIGHT TOTAL KNEE ARTHROPLASTY; Surgeon: Calvin Childress MD YAG CAPSULOTOMY - OS - LEFT EYE w FamilyHistory w Family History Problem Relation Age of Onset Heart Failure Father Cataracts Father Glaucoma Father Heart Failure Mother Cataracts Mother Neurological Brother Sara Gehrig's disease Not otherwise listed - Cancer Brother prostates cancer Diabetes Neg Hx Macular Degeneration Neg Hx Retinal Detachment Neg Hx Blindness Neg Hx w SocialHistory w Social History Socioeconomic History Marital status: Spouse name: Not on file Number of children: 5 Years of education: Not on file Highest education level: Not on file Occupational History Occupation: Housewife Tobacco Use Smoking status: Former Smoker Types: Cigarettes Last attempt to quit: 09/24/1989 Years since quittin.1 Smokeless tobacco: Never Used Substance and Sexual Activity Alcohol use: No Drug use: No ROS Review of Systems Constitutional: Positive forunexpected weight change. Negative forchillsand fever. Respiratory: Positive forshortness of breath. Negative forcough. Cardiovascular: Negative forchest pain,palpitationsand leg swelling. Gastrointestinal: Negative forblood in stool,nauseaand vomiting. Genitourinary: Negative fordifficulty urinatingand dysuria. Neurological: Positive fordizzinessand light-headedness. Negative forfacial asymmetryand speech difficulty. Psychiatric/Behavioral: Positive fordecreased concentrationand dysphoric mood. Physical / Results BP 108/60 Pulse 92 Temp 97.2 F (36.2 C) (Tympanic) Wt 59.9 kg (132 lb) SpO2 96% BMI 20.67 kg/m2|| Physical Exam Constitutional: She isoriented to person, place, and time. She appearswell- developedand well-nourished.No distress. HENT: Right Ear:External earnormal. Left Ear: External earnormal. Mouth/Throat:Oropharynx is clear and moist. Cardiovascular:Normal rate. irreg rhythm Pulmonary/Chest:Effort normaland breath sounds normal. Abdominal:Soft.Bowel sounds are normal. Neurological: She isalertand oriented to person, place, and time. She exhibits normal muscle tone.Coordinationnormal. Can stand w/o assistance Skin: Skin iswarmand dry. She isnot diaphoretic. Psychiatric: She has anormal mood and affect. Herbehavior is normal.Judgment and thought contentnormal. Can recall her age birthday and current date fairly easily. She can recall two of three delayed words. Her clock drawing is incorrect but she has significant visual deficit from her macular degeneration. Right Leg Pain Score (Numeric/FACES): 5 - Related Data Allergies/Adverse Reactions: Allergies Allergy/AdvReac Type Severity Reaction Status Date / Time aloe vera Allergy Itching Verified 11/01/19 12:35 moexipril [From Univasc] Allergy Cough Verified 11/01/19 12:35 phenazopyridine Allergy Nausea Verified 11/01/19 12:35 Sulfa (Sulfonamide Allergy Airway Verified 11/01/19 12:35 Antibiotics) Tightness terazosin Allergy Edema Verified 11/01/19 12:35 amlodipine besylate AdvReac Swelling Verified 11/01/19 12:35 [From Norvasc] lidocaine HCl AdvReac Hypotension Verified 11/01/19 12:35 [From Xylocaine] moexipril HCl [From Univasc] AdvReac Cough Verified 11/01/19 12:35 morphine AdvReac Hypotension Verified 02/08/20 12:35 Home Medications: Home Meds Acetaminophen [Tylenol] 650 mg PO Q4H PRN 12/30/15 [History] Aspirin [Adult Low Dose Aspirin EC] 81 mg PO DAILY 12/30/15 [History] Famotidine [Pepcid] 20 mg PO BEDTIME 12/30/15 [History] Montelukast [Singulair] 10 mg PO DAILY 12/30/15 [History] Nitroglycerin [Nitrostat] 0.4 mg SL ASDIRECTED PRN 12/30/15 [History] Propylene Glycol/Peg 400 [Systane 0.3-0.4% Eye Drops] 1 drop EYEBOTH Q4H PRN 04/08 [History] Simvastatin 20 mg PO BEDTIME 12/30/15 [History] allopurinoL [Allopurinol] 150 mg PO DAILY 12/30/15 [History] Albuterol/Ipratropium [Combivent Respimat] 1 puff IH QID PRN 02/13/16 [History] Bimatoprost [LUMIGAN 0.01% Ophth Soln] 1 drop EYEBOTH BEDTIME 02/14/16 [History] Losartan [Cozaar] 100 mg PO DAILY 08/04/18 [History] Apixaban [Eliquis] 5 mg PO BID 08/18/18 [History] Digoxin [Digox] 0.125 mg PO DAILY 01/18/19 [History] Loperamide [Imodium AD] 2 cap PO ASDIRECTED PRN MDD 8 caps 01/18/19 [History] Cholecalciferol (Vitamin D3) [Vitamin D3] 2,000 unit PO DAILY 05/29/19 [History] Spironolactone [Aldactone] 25 mg PO DAILY #30 tablet 06/01/19 [Rx] Glucosam/Chond/Collagen/Hyalur [Glucosamine Chondroitin] 1 each PO DAILY [History] Citalopram Hydrobromide [Celexa] 10 mg PO DAILY 11/03/19 [History] Fluticasone/Salmeterol [Advair 250-50 Diskus] 1 puff INH BID 11/03/19 [History] Metoprolol Tartrate [Lopressor] 50 mg PO DAILY 11/03/19 [History] Psyllium [Metamucil] 1 cap PO DAILY 11/03/19 [History] Past Medical History HEENT History: Reports: Glaucoma, Impaired Vision, Macular Degeneration, Other ( See Below) Other HEENT History: thyrotoxic exophthalmos. Blepharitis Cardiovascular History: Reports: Afib, Blood Clots/VTE/DVT, CAD, Heart Failure, Hypertension, [place], Pulmonary Hypertension, SOB on Exertion, Other (See Below) Other Cardiovascular History: PE. Cardiac Artery bruit. Aortic/mitral insuffienency Respiratory History: Reports: Asthma, Other (See Below) Other Respiratory History: hypoxic with sleep Gastrointestinal History: Reports: Irritable Bowel Syndrome, Other (See Below) Other Gastrointestinal History: Pelvic mass Musculoskeletal History: Reports: Gout, Osteoarthritis Neurological History: Reports: Other (See Below) Other Neuro History: Peripheral neuropathy Psychiatric History: Reports: Anxiety Endocrine/Metabolic History: Reports: Diabetes, Type II, Osteopenia, Other (See Below) Other Endocrine/Metabolic History: Unintensonal weight loss. Diet controlled DM II. Graves disease Oncologic (Cancer) History: Reports: Other (See Below) Other Oncologic History: on her nose Dermatologic History: Reports: Other (See Below) Other Dermatologic History: hx of basal cell - Past Surgical History HEENT Surgical History: Reports: Cataract Surgery Cardiovascular Surgical History: Reports: Percutaneous Transluminal Angioplasty GI Surgical History: Reports: Appendectomy Neurological Surgical History: Reports: Other (See Below) Other Neurological Surgeries/Procedures: Spine surgury 1976 Musculoskeletal Surgical History: Reports: Knee Replacement Social & Family History - Family History Family Medical History: Noncontributory - Tobacco Use Smoking Status *Q: Former Smoker Used Tobacco, but Quit: Yes Month/Year Tobacco Last Used: 1979 - Caffeine Use Caffeine Use: Reports: None - Recreational Drug Use Recreational Drug Use: No H&P Review of Systems - Review of Systems: Review Of Systems: See Below Exam - Exam Exam: See Below - Vital Signs Vital Signs: Last Vital Signs Temp 35.7 C 11/04/19 04:17 Pulse 69 11/04/19 07:57 Resp 18 11/04/19 04:17 BP 132/66 11/04/19 07:57 Pulse Ox 97 11/04/19 07:53 Weight: 61.235 kg - Patient Data Lab Results Last 24 hrs: Laboratory Results - last 24 hr 11/04/19 Range/Units 04:15 Urine Color Yellow (YELLOW) Urine Appearance Slightly cloudy H (CLEAR) Urine pH 5.5 (5.0-8.0) Ur Specific [place] 1.020 Urine Protein 30 H (NEGATIVE) mg/dL Urine Glucose (UA) Negative (NEGATIVE) mg/dL Urine Ketones Negative (NEGATIVE) mg/dL Urine Occult Blood Negative (NEGATIVE) Urine Nitrite Negative (NEGATIVE) Urine Bilirubin Small H (NEGATIVE) Urine Urobilinogen 1.0 (0.2) EU/dL Ur Leukocyte Esterase Trace H (NEGATIVE) Urine RBC 0-5 (NOT SEEN) /HPF Urine WBC 5-10 H (NOT SEEN) /HPF Ur Squamous Epith Cells Few H (NEGATIVE) /HPF Amorphous Sediment Rare Urine Bacteria Occasional H (NEGATIVE) /HPF Urine Mucus Few H (NEGATIVE) /LPF Sepsis Event Note - Evaluation Sepsis Screening Result: No Definite Risk - Focused Exam Vital Signs: Vital Signs Temp Pulse Pulse Resp BP BP Pulse Ox 11/04/19 07:57 69 132/66 11/04/19 07:56 132/66 11/04/19 07:53 11/04/19 04:17 35.7 C 101 H 18 132/66 99 11/04/19 01:18 36.0 C 86 18 123/66 97 Pulse Ox 11/04/19 07:57 11/04/19 07:56 11/04/19 07:53 97 11/04/19 04:17 11/04/19 01:18 Date Exam was Performed: 11/04/19 Time Exam was Performed: 11:16 Problem List Initiated/Reviewed/Updated: Yes Orders Last 24hrs: Active Orders 24 hr Category Date Time Status Admission Status [Patient Status] [ADT] Routine ADT 11/03/19 17:21 Active Patient Status [ADT] Routine ADT 11/03/19 17:49 Active Ambulate [RC] 08,20 Care 11/03/19 17:50 Active Oxygen Therapy [RC] 20 Care 11/03/19 17:49 Active Telemetry Monitoring [Cardiac Monitoring] [RC] . Care 11/04/19 08:48 Active DIRECTED Up With Assistance [RC] .PRN Care 11/03/19 17:48 Active VTE/DVT Education [RC] PER UNIT ROUTINE Care 11/03/19 17:49 Active Vital Signs [RC] 02,06,10,14,18,22 Care 11/03/19 17:49 Active Consult to Case Management/Automotive Service Director [CONS] Cons 02/10/20 17:48 Active Routine OT Evaluation and Treatment [CONS] Routine Cons 11/03/19 17:48 Active PT Evaluation and Treatment [CONS] Routine Cons 11/03/19 17:48 Active Regular Diet [DIET] Diet 11/03/19 Dinner Active CULTURE URINE [RM] Routine Lab 11/04/19 04:15 Received Acetaminophen [Tylenol] Med 11/03/19 17:48 Active 650 mg PO Q4H PRN Albuterol/Ipratropium [DuoNeb 3.0-0.5 MG/3 ML] Med 11/03/19 17:52 Active 3 ml INH Q6H PRN Apixaban [Eliquis] Med 11/03/19 20:00 Active 5 mg PO BID Aspirin [Halfprin] Med 11/04/19 08:00 Active 81 mg PO DAILY Bumetanide [Bumex] Med 11/04/19 09:45 Active 0.5 mg PO DAILY Cholecalciferol (Vitamin D3) [Vitamin D3] Med 11/04/19 08:00 Active 50 mcg PO DAILY Citalopram [Celexa] Med 11/04/19 08:00 Active 10 mg PO DAILY Cyanocobalamin (Vitamin B12) [Vitamin B12] Med 11/04/19 09:45 Active 1,000 mcg IM Q2D Digoxin [Lanoxin] Med 11/04/19 08:00 Active 125 mcg PO DAILY Famotidine [Pepcid] Med 11/03/19 20:00 Active 20 mg PO BEDTIME Fluticasone Propionate [Flovent HFA] Med 11/03/19 20:00 Pending 1 puff INH BID Glucosamine [Glucosamine Sulfate] Med 11/04/19 08:30 Active 500 mg PO DAILY Hypromellose [GenTeal Mild to Moderate Ophth Soln] Med 11/04/19 08:30 Active 0 ml EYEBOTH BID Latanoprost [Xalatan 0.005% Ophth Soln] Med 11/03/19 20:00 Active 0 ml EYEBOTH BEDTIME Loperamide [Imodium] Med 11/03/19 17:52 Active 2 mg PO ASDIRECTED PRN Losartan [Cozaar] Med 11/04/19 08:00 Active 100 mg PO DAILY Metoprolol Tartrate [Lopressor] Med 11/04/19 08:00 Active 50 mg PO DAILY Montelukast [Singulair] Med 11/04/19 08:00 Active 10 mg PO DAILY Nitroglycerin [Nitrostat] Med 11/03/19 17:52 Active 0.4 mg SL ASDIRECTED PRN Ondansetron [Zofran ODT] Med 11/03/19 17:48 Active 4 mg PO Q6H PRN Psyllium [Metamucil] Med 11/04/19 08:00 Active 0.52 gm PO DAILY Simvastatin [Zocor] Med 11/03/19 20:00 Active 20 mg PO BEDTIME allopurinoL [Zyloprim] Med 11/04/19 08:00 Active 150 mg PO DAILY haloperidoL [Haldol] Med 11/03/19 20:00 Active 0.5 mg PO BEDTIME Resuscitation Status Routine Resus Stat 11/03/19 17:48 Ordered Medication Orders Acetaminophen (Tylenol) 650 mg PO Q4H PRN PRN Reason: Pain (Mild 1-3)/fever Last Admin: 11/03/19 19:40 Dose: 650 mg Albuterol/Ipratropium (Duoneb 3.0-0.5 Mg/3 Ml) 3 ml INH Q6H PRN PRN Reason: Shortness of Breath Allopurinol (Zyloprim) 150 mg PO DAILY [facility] Last Admin: 11/04/19 07:56 Dose: 150 mg Apixaban (Eliquis) 5 mg PO BID [facility] Last Admin: 11/04/19 07:56 Dose: 5 mg Admin: 11/03/19 19:42 Dose: 5 mg Artificial Tears (Genteal Mild To Moderate Ophth Soln) 0 ml EYEBOTH BID [facility] Last Admin: 11/04/19 10:44 Dose: 2 drop Aspirin (Halfprin) 81 mg PO DAILY [facility] Last Admin: 11/04/19 07:55 Dose: 81 mg Bumetanide (Bumex) 0.5 mg PO DAILY [facility] Last Admin: 11/04/19 10:46 Dose: 0.5 mg Cholecalciferol (Vitamin D3) 50 mcg PO DAILY [facility] Last Admin: 11/04/19 07:55 Dose: 50 mcg Citalopram Hydrobromide (Celexa) 10 mg PO DAILY [facility] Last Admin: 11/04/19 07:54 Dose: 10 mg Cyanocobalamin (Vitamin B12) 1,000 mcg IM Q2D [facility] Stop: 11/16/19 09:46 Digoxin (Lanoxin) 125 mcg PO DAILY [facility] Last Admin: 11/04/19 07:57 Dose: 125 mcg Famotidine (Pepcid) 20 mg PO BEDTIME [facility] Last Admin: 11/03/19 19:42 Dose: 20 mg Glucosamine Sulfate (Glucosamine Sulfate) 500 mg PO DAILY [facility] Last Admin: 11/04/19 10:45 Dose: 500 mg Haloperidol (Haldol) 0.5 mg PO BEDTIME [facility] Last Admin: 11/03/19 19:42 Dose: 0.5 mg Latanoprost (Xalatan 0.005% Ophth Soln) 0 ml EYEBOTH BEDTIME [facility] Last Admin: 11/03/19 19:43 Dose: 1 drop Loperamide HCl (Imodium) 2 mg PO ASDIRECTED PRN PRN Reason: Diarrhea Losartan Potassium (Cozaar) 100 mg PO DAILY [facility] Last Admin: 11/04/19 07:56 Dose: 100 mg Metoprolol Tartrate (Lopressor) 50 mg PO DAILY [facility] Last Admin: 11/04/19 07:57 Dose: 50 mg Montelukast Sodium (Singulair) 10 mg PO DAILY [facility] Last Admin: 11/04/19 07:55 Dose: 10 mg Nitroglycerin (Nitrostat) 0.4 mg SL ASDIRECTED PRN PRN Reason: chest pain, angina Non-Formulary Medication (Fluticasone Propionate [Flovent Hfa]) 1 puff INH BID [facility] Ondansetron HCl (Zofran Odt) 4 mg PO Q6H PRN PRN Reason: nausea, able to take PO Psyllium Hydrophilic Mucilloid (Metamucil) 0.52 gm PO DAILY [facility] Last Admin: 11/04/19 07:55 Dose: 0.52 gm Simvastatin (Zocor) 20 mg PO BEDTIME [facility] Last Admin: 11/03/19 19:42 Dose: 20 mg
--- NOTE | 2019-11-04 11:21 | PCM.PN ---
- General Info Date of Service: 11/04/19 Admission Dx/Problem (Free Text): Admission Diagnosis/Problem Admission Diagnosis/Problem Weakness Subjective Update: Patient was admitted yesterday for multifactorial failure to thrive. Appears to have some worsening of CHF, we'll start low-dose Bumex. Otherwise relatively euvolemic by exam. Denies gross dyspnea although she is rather deconditioned doesn't walk very much. She does describe her legs being a bit wobbly and numb, some mentation issues especially at night. Grossly B-12 deficient will start every other day injections. She states she otherwise slept quite well last night with low-dose Haldol at bedtime. Await PT, OT, SW consults. Anticipate SB after above B12 and bumex to recondition. Then possible back to [place] w/ [facility] vs [place] after this. Unclear to me if we can repeat MRI and echo as inpatient. - Patient Data Vitals - Most Recent: Last Vital Signs Temp 35.7 C 11/04/19 04:17 Pulse 69 11/04/19 07:57 Resp 18 11/04/19 04:17 BP 132/66 11/04/19 07:57 Pulse Ox 97 11/04/19 07:53 Weight - Most Recent: 61.235 kg I&O - Last 24 Hours: Intake & Output 11/03/19 11/04/19 11/04/19 22:59 06:59 14:59 Intake Total 200 180 Output Total 200 40 Balance -200 160 180 Lab Results Last 24 Hours: Laboratory Results - last 24 hr 11/04/19 Range/Units 04:15 Urine Color Yellow (YELLOW) Urine Appearance Slightly cloudy H (CLEAR) Urine pH 5.5 (5.0-8.0) Ur Specific [place] 1.020 Urine Protein 30 H (NEGATIVE) mg/dL Urine Glucose (UA) Negative (NEGATIVE) mg/dL Urine Ketones Negative (NEGATIVE) mg/dL Urine Occult Blood Negative (NEGATIVE) Urine Nitrite Negative (NEGATIVE) Urine Bilirubin Small H (NEGATIVE) Urine Urobilinogen 1.0 (0.2) EU/dL Ur Leukocyte Esterase Trace H (NEGATIVE) Urine RBC 0-5 (NOT SEEN) /HPF Urine WBC 5-10 H (NOT SEEN) /HPF Ur Squamous Epith Cells Few H (NEGATIVE) /HPF Amorphous Sediment Rare Urine Bacteria Occasional H (NEGATIVE) /HPF Urine Mucus Few H (NEGATIVE) /LPF Med Orders - Current: Current Medications Acetaminophen (Tylenol) 650 mg PO Q4H PRN PRN Reason: Pain (Mild 1-3)/fever Last Admin: 11/03/19 19:40 Dose: 650 mg Albuterol/Ipratropium (Duoneb 3.0-0.5 Mg/3 Ml) 3 ml INH Q6H PRN PRN Reason: Shortness of Breath Allopurinol (Zyloprim) 150 mg PO DAILY [facility] Last Admin: 11/04/19 07:56 Dose: 150 mg Apixaban (Eliquis) 5 mg PO BID [facility] Last Admin: 11/04/19 07:56 Dose: 5 mg Artificial Tears (Genteal Mild To Moderate Ophth Soln) 0 ml EYEBOTH BID [facility] Last Admin: 11/04/19 10:44 Dose: 2 drop Aspirin (Halfprin) 81 mg PO DAILY [facility] Last Admin: 11/04/19 07:55 Dose: 81 mg Bumetanide (Bumex) 0.5 mg PO DAILY [facility] Last Admin: 11/04/19 10:46 Dose: 0.5 mg Cholecalciferol (Vitamin D3) 50 mcg PO DAILY [facility] Last Admin: 11/04/19 07:55 Dose: 50 mcg Citalopram Hydrobromide (Celexa) 10 mg PO DAILY [facility] Last Admin: 11/04/19 07:54 Dose: 10 mg Cyanocobalamin (Vitamin B12) 1,000 mcg IM Q2D [facility] Stop: 11/16/19 09:46 Digoxin (Lanoxin) 125 mcg PO DAILY [facility] Last Admin: 11/04/19 07:57 Dose: 125 mcg Famotidine (Pepcid) 20 mg PO BEDTIME [facility] Last Admin: 11/03/19 19:42 Dose: 20 mg Glucosamine Sulfate (Glucosamine Sulfate) 500 mg PO DAILY [facility] Last Admin: 11/04/19 10:45 Dose: 500 mg Haloperidol (Haldol) 0.5 mg PO BEDTIME [facility] Last Admin: 11/03/19 19:42 Dose: 0.5 mg Latanoprost (Xalatan 0.005% Ophth Soln) 0 ml EYEBOTH BEDTIME [facility] Last Admin: 11/03/19 19:43 Dose: 1 drop Loperamide HCl (Imodium) 2 mg PO ASDIRECTED PRN PRN Reason: Diarrhea Losartan Potassium (Cozaar) 100 mg PO DAILY [facility] Last Admin: 11/04/19 07:56 Dose: 100 mg Metoprolol Tartrate (Lopressor) 50 mg PO DAILY [facility] Last Admin: 11/04/19 07:57 Dose: 50 mg Montelukast Sodium (Singulair) 10 mg PO DAILY [facility] Last Admin: 11/04/19 07:55 Dose: 10 mg Nitroglycerin (Nitrostat) 0.4 mg SL ASDIRECTED PRN PRN Reason: chest pain, angina Non-Formulary Medication (Fluticasone Propionate [Flovent Hfa]) 1 puff INH BID [facility] Ondansetron HCl (Zofran Odt) 4 mg PO Q6H PRN PRN Reason: nausea, able to take PO Psyllium Hydrophilic Mucilloid (Metamucil) 0.52 gm PO DAILY [facility] Last Admin: 11/04/19 07:55 Dose: 0.52 gm Simvastatin (Zocor) 20 mg PO BEDTIME [facility] Last Admin: 11/03/19 19:42 Dose: 20 mg Discontinued Medications Acetaminophen (Tylenol) 650 mg PO Q4H PRN PRN Reason: Pain Non-Formulary Medication (Metoprolol Succinate [Toprol Xl 100mg]) 50 mg PO DAILY [facility] Sepsis Event Note - Evaluation Sepsis Screening Result: No Definite Risk - Focused Exam Vital Signs: Vital Signs Temp Pulse Pulse Resp BP BP Pulse Ox 11/04/19 07:57 69 132/66 11/04/19 07:56 132/66 11/04/19 07:53 11/04/19 04:17 35.7 C 101 H 18 132/66 99 11/04/19 01:18 36.0 C 86 18 123/66 97 Pulse Ox 11/04/19 07:57 11/04/19 07:56 11/04/19 07:53 97 11/04/19 04:17 11/04/19 01:18 Date Exam was Performed: 11/04/19 Time Exam was Performed: 11:18 - Problem List Review Problem List Initiated/Reviewed/Updated: Yes - My Orders Last 24 Hours: My Active Orders 11/03/19 17:21 Admission Status [Patient Status] [ADT] Routine 11/03/19 17:48 Up With Assistance [RC] .PRN Consult to Case Management/[employer] [CONS] Routine OT Evaluation and Treatment [CONS] Routine PT Evaluation and Treatment [CONS] Routine Acetaminophen [Tylenol] 650 mg PO Q4H PRN Ondansetron [Zofran ODT] 4 mg PO Q6H PRN Resuscitation Status Routine 11/03/19 17:49 Patient Status [ADT] Routine Oxygen Therapy [RC] 20 Vital Signs [RC] 02,06,10,14,18,22 11/03/19 17:50 Ambulate [RC] 11/03/19 17:52 Albuterol/Ipratropium [DuoNeb 3.0-0.5 MG/3 ML] 3 ml INH Q6H PRN Loperamide [Imodium] 2 mg PO ASDIRECTED PRN Nitroglycerin [Nitrostat] 0.4 mg SL ASDIRECTED PRN 11/03/19 20:00 Apixaban [Eliquis] 5 mg PO BID Famotidine [Pepcid] 20 mg PO BEDTIME Fluticasone Propionate [Flovent HFA] 1 puff INH BID Latanoprost [Xalatan 0.005% Ophth Soln] 0 ml EYEBOTH BEDTIME Simvastatin [Zocor] 20 mg PO BEDTIME haloperidoL [Haldol] 0.5 mg PO BEDTIME 11/03/19 Dinner Regular Diet [DIET] 11/04/19 04:15 CULTURE URINE [RM] Routine 11/04/19 08:00 Aspirin [Halfprin] 81 mg PO DAILY Cholecalciferol (Vitamin D3) [Vitamin D3] 50 mcg PO DAILY Citalopram [Celexa] 10 mg PO DAILY Digoxin [Lanoxin] 125 mcg PO DAILY Losartan [Cozaar] 100 mg PO DAILY Montelukast [Singulair] 10 mg PO DAILY Psyllium [Metamucil] 0.52 gm PO DAILY allopurinoL [Zyloprim] 150 mg PO DAILY 11/04/19 08:30 Glucosamine [Glucosamine Sulfate] 500 mg PO DAILY Hypromellose [GenTeal Mild to Moderate Ophth Soln] 0 ml EYEBOTH BID 11/04/19 09:45 Bumetanide [Bumex] 0.5 mg PO DAILY Cyanocobalamin (Vitamin B12) [Vitamin B12] 1,000 mcg IM Q2D
[2019-11-04] MEDS: Cyanocobalamin (Vitamin B12) 1,000 MCG/ML SDV IM SCH (12:50)
[2019-11-04] MEDS: Fluticasone-Salmeterol 113-14 MCG Powder Inhalant INH SCH ×2 (17:35→20:19)
[2019-11-04] MEDS: Latanoprost 0.005% Ophth Soln 2.5 ML Bottle EYEBOTH SCH (20:19)
[2019-11-04] MEDS: Simvastatin 20 MG Tab PO SCH (20:21)
[2019-11-04] MEDS: Haloperidol 0.5 MG Tab PO SCH (20:21)
[2019-11-04] MEDS: Famotidine 20 MG Tab PO SCH (20:21)
[2019-11-04] MEDS: Acetaminophen 325 MG Tab PO PRN (21:07)
[2019-11-05 07:12] LABS: ANION GAP 9.7 mmol/L (10-20)
[2019-11-05] MEDS: Cholecalciferol (Vitamin D3) 25 MCG Tab PO SCH (07:48)
[2019-11-05] MEDS: Montelukast 10 MG Tab PO SCH (07:48)
[2019-11-05] MEDS: Losartan 50 MG Tab PO SCH (07:48)
[2019-11-05] MEDS: Apixaban 2.5 MG Tab PO SCH ×2 (07:48→19:40)
[2019-11-05] MEDS: Citalopram 10 MG Tab PO SCH (07:48)
[2019-11-05] MEDS: Glucosamine 500 MG Cap PO SCH (07:48)
[2019-11-05] MEDS: Allopurinol 300 MG Tab PO SCH (07:48)
[2019-11-05] MEDS: Psyllium 0.52 GM Cap PO SCH (07:48)
[2019-11-05] MEDS: Bumetanide 1 MG Tab PO SCH (07:49)
[2019-11-05] MEDS: Digoxin 125 MCG Tab PO SCH (07:49)
[2019-11-05] MEDS: Metoprolol Succinate 50 MG Tab.ER PO SCH (07:49)
[2019-11-05] MEDS: Fluticasone-Salmeterol 113-14 MCG Powder Inhalant INH SCH ×2 (07:49→19:41)
[2019-11-05] MEDS: Hypromellose 0.3% Ophth Soln 15 ML Bottle EYEBOTH SCH ×2 (07:49→19:41)
[2019-11-05] MEDS: Aspirin 81 MG Tab.EC PO SCH (07:49)
--- NOTE | 2019-11-05 11:11 | PCM.PN ---
- General Info Date of Service: 11/05/19 Admission Dx/Problem (Free Text): Subjective: Patient was admitted for multifactorial failed to thrive. Sig weight loss for past year or so. OT saw her Mini-Mental Status score is 20 consistent with moderate dementia. She had another episode of hallucinations last night, she felt like the hospital was on fire. She did still receive low-dose Haldol bedtime. Physical therapy evaluated they didn't see need for further therapy. OT evaluations otherwise similar. Has occasional tachycardia more so than bradycardia, mild, chronic A. fib. Denies any cecelia dyspnea. Tolerating diet okay. Objective: Vital signs remain normal other than occasional tachycardia. Alert oriented smiling no acute distress. Heart irregular rate and rhythm, lungs mild basilar crackles, abdomen soft nontender, ext warm well perfused without edema. Assessment and plan: #1. Dementia. Significantly B-12 deficient, we started high dose 1 mg IM every 48 hour dosing. Monitor while replacing. Discussed can take weeks to months to notice significant neurologic change. She could still have other causes of dementia present including Alzheimer's degeneration and multi-infarct given her A. fib history. Given encephalomalacia by CT would plan on proceeding to MRI. #2. Still some agitation and hallucinations secondary to above. Continue low- dose daily at bedtime Haldol. Can repeat 0.5 mg during the night if needed. #3. Continue low-dose Bumex for CHF, not grossly symptomatic but was a bit worse by recent x-ray. Would recommend repeating echocardiogram at some point. #4. Cystic ovarian lesion by CT and ultrasound NOS. Just very mild elevation of CEA 125. Would recommend repeating ultrasound and blood level in three months to see if any change per family's desire per health course of above issues. #5. Disposition. Dementia and hallucinations still pose somewhat of a safety risk, she was having falls at home earlier. PT/OT currently didn't see a need to follow here. Unclear if she can return to assisted living environment was at previously, perhaps if she had more home health in place. This would be versus custodial with 24-hour supervision. Social work consult it. Patient's primary will likely be following with her tomorrow to discuss best long-term options. - Patient Data Vitals - Most Recent: Last Vital Signs Temp 36.4 C 11/05/19 06:00 Pulse 118 H 11/05/19 07:49 Resp 16 11/05/19 06:00 BP 135/69 11/05/19 07:49 Pulse Ox 97 11/05/19 06:00 Weight - Most Recent: 61.235 kg I&O - Last 24 Hours: Intake & Output 11/04/19 11/05/19 11/05/19 22:59 06:59 14:59 Intake Total 240 180 Balance 240 180 Lab Results Last 24 Hours: Laboratory Results - last 24 hr 11/05/19 11/05/19 Range/Units 06:25 06:25 WBC 7.4 (4.0-10.0) x10^3/uL RBC 3.97 L (4.00-5.50) x10^6/uL Hgb 12.1 (12.0-16.0) g/dL Hct 37.7 (33.0-47.0) % MCV 95.0 H (78.0-93.0) fL MCH 30.5 (26.0-32.0) pg MCHC 32.1 (32.0-36.0) g/dL RDW Coeff of [place] 15.0 (10.0-15.0) % Plt Count 260 (130-400) x10^3/uL Neut % (Auto) 52.0 (50.0-80.0) % Lymph % (Auto) 34.5 (25.0-50.0) % [place] % (Auto) 9.2 (2.0-11.0) % Eos % (Auto) 3.9 (0.0-4.0) % Baso % (Auto) 0.4 (0.2-1.2) % Sodium 136 (136-145) mmol/L Potassium 4.7 (3.5-5.1) mmol/L Chloride 101 (98-107) mmol/L Carbon Dioxide 30 (21-32) mmol/L Anion Gap 9.7 L (10-20) mmol/L BUN 26 H (7-18) mg/dL Creatinine 1.1 H (0.55-1.02) mg/dL Est Cr Clr Drug Dosing 34.17 mL/min Estimated GFR (MDRD) 47 Glucose 101 (74-106) mg/dL Calcium 8.3 L (8.5-10.1) mg/dL Cedric Results Last 24 Hours: Microbiology 11/04/19 04:15 Urine Culture - Preliminary Urine, Clean Catch Staphylococcus Coagulase Neg Med Orders - Current: Current Medications Acetaminophen (Tylenol) 650 mg PO Q4H PRN PRN Reason: Pain (Mild 1-3)/fever Last Admin: 11/04/19 21:07 Dose: 650 mg Albuterol/Ipratropium (Duoneb 3.0-0.5 Mg/3 Ml) 3 ml INH Q6H PRN PRN Reason: Shortness of Breath Allopurinol (Zyloprim) 150 mg PO DAILY [facility] Last Admin: 11/05/19 07:48 Dose: 150 mg Apixaban (Eliquis) 5 mg PO BID [facility] Last Admin: 11/05/19 07:48 Dose: 5 mg Artificial Tears (Genteal Mild To Moderate Ophth Soln) 0 ml EYEBOTH BID [facility] Last Admin: 11/05/19 07:49 Dose: 1 drop Aspirin (Halfprin) 81 mg PO DAILY [facility] Last Admin: 11/05/19 07:49 Dose: 81 mg Bumetanide (Bumex) 0.5 mg PO DAILY [facility] Last Admin: 11/05/19 07:49 Dose: 0.5 mg Cholecalciferol (Vitamin D3) 50 mcg PO DAILY [facility] Last Admin: 11/05/19 07:48 Dose: 50 mcg Citalopram Hydrobromide (Celexa) 10 mg PO DAILY [facility] Last Admin: 11/05/19 07:48 Dose: 10 mg Cyanocobalamin (Vitamin B12) 1,000 mcg IM Q2D [facility] Stop: 11/16/19 09:46 Last Admin: 11/04/19 12:50 Dose: 1,000 mcg Digoxin (Lanoxin) 125 mcg PO DAILY [facility] Last Admin: 11/05/19 07:49 Dose: 125 mcg Famotidine (Pepcid) 20 mg PO BEDTIME [facility] Last Admin: 11/04/19 20:21 Dose: 20 mg Glucosamine Sulfate (Glucosamine Sulfate) 500 mg PO DAILY [facility] Last Admin: 11/05/19 07:48 Dose: 500 mg Haloperidol (Haldol) 0.5 mg PO BEDTIME [facility] Last Admin: 11/04/19 20:21 Dose: 0.5 mg Latanoprost (Xalatan 0.005% Ophth Soln) 0 ml EYEBOTH BEDTIME [facility] Last Admin: 11/04/19 20:19 Dose: 1 drop Loperamide HCl (Imodium) 2 mg PO ASDIRECTED PRN PRN Reason: Diarrhea Losartan Potassium (Cozaar) 100 mg PO DAILY [facility] Last Admin: 11/05/19 07:48 Dose: 100 mg Metoprolol Succinate (Toprol Xl) 50 mg PO DAILY [facility] Last Admin: 11/05/19 07:49 Dose: 50 mg Montelukast Sodium (Singulair) 10 mg PO DAILY [facility] Last Admin: 11/05/19 07:48 Dose: 10 mg Nitroglycerin (Nitrostat) 0.4 mg SL ASDIRECTED PRN PRN Reason: chest pain, angina Ondansetron HCl (Zofran Odt) 4 mg PO Q6H PRN PRN Reason: nausea, able to take PO Psyllium Hydrophilic Mucilloid (Metamucil) 0.52 gm PO DAILY [facility] Last Admin: 11/05/19 07:48 Dose: 0.52 gm Fluticasone/Salmeterol (Fluticasone-Salmeterol 113-14 Mcg Powder Inh) 1 puff INH BID [facility] Last Admin: 11/05/19 07:49 Dose: 1 puff Simvastatin (Zocor) 20 mg PO BEDTIME [facility] Last Admin: 11/04/19 20:21 Dose: 20 mg Discontinued Medications Acetaminophen (Tylenol) 650 mg PO Q4H PRN PRN Reason: Pain Metoprolol Tartrate (Lopressor) 50 mg PO DAILY [facility] Last Admin: 11/04/19 07:57 Dose: 50 mg Non-Formulary Medication (Metoprolol Succinate [Toprol Xl 100mg]) 50 mg PO DAILY [facility] Sepsis Event Note - Evaluation Sepsis Screening Result: No Definite Risk - Focused Exam Vital Signs: Vital Signs Temp Pulse Pulse Resp BP BP Pulse Ox 11/05/19 07:49 118 H 135/69 11/05/19 07:48 135/69 11/05/19 06:00 36.4 C 95 16 135/69 97 11/05/19 01:16 36.1 C 98 18 117/74 98 Date Exam was Performed: 11/05/19 Time Exam was Performed: 11:04 - Problem List Review Problem List Initiated/Reviewed/Updated: Yes - My Orders Last 24 Hours: My Active Orders 11/04/19 15:15 Fluticasone/Salmeterol [Fluticasone-Salmeterol 113-14 MCG Powder Inh] 1 puff INH BID 11/05/19 08:00 Metoprolol Succinate [Toprol XL] 50 mg PO DAILY
[2019-11-05] MEDS ORDERED: Haloperidol 0.5 MG Tab PO PRN (11:12)
[2019-11-05] MEDS: Simvastatin 20 MG Tab PO SCH (19:40)
[2019-11-05] MEDS: Latanoprost 0.005% Ophth Soln 2.5 ML Bottle EYEBOTH SCH (19:40)
[2019-11-05] MEDS: Haloperidol 0.5 MG Tab PO SCH (19:40)
[2019-11-05] MEDS: Famotidine 20 MG Tab PO SCH (19:40)
[2019-11-06] MEDS: Allopurinol 300 MG Tab PO SCH (07:34)
[2019-11-06] MEDS: Hypromellose 0.3% Ophth Soln 15 ML Bottle EYEBOTH SCH ×2 (07:34→19:37)
[2019-11-06] MEDS: Bumetanide 1 MG Tab PO SCH (07:34)
[2019-11-06] MEDS: Apixaban 2.5 MG Tab PO SCH ×2 (07:35→19:38)
[2019-11-06] MEDS: Losartan 50 MG Tab PO SCH (07:35)
[2019-11-06] MEDS: Citalopram 10 MG Tab PO SCH (07:35)
[2019-11-06] MEDS: Aspirin 81 MG Tab.EC PO SCH (07:35)
[2019-11-06] MEDS: Psyllium 0.52 GM Cap PO SCH (07:35)
[2019-11-06] MEDS: Cholecalciferol (Vitamin D3) 25 MCG Tab PO SCH (07:35)
[2019-11-06] MEDS: Montelukast 10 MG Tab PO SCH (07:35)
[2019-11-06] MEDS: Glucosamine 500 MG Cap PO SCH (07:36)
[2019-11-06] MEDS: Fluticasone-Salmeterol 113-14 MCG Powder Inhalant INH SCH ×2 (07:38→19:37)
[2019-11-06] MEDS: Metoprolol Succinate 50 MG Tab.ER PO SCH (07:40)
[2019-11-06] MEDS: Digoxin 125 MCG Tab PO SCH (07:40)
[2019-11-06] MEDS: Cyanocobalamin (Vitamin B12) 1,000 MCG/ML SDV IM SCH (10:12)
[2019-11-06] MEDS ORDERED: risperiDONE 0.25 MG Tab PO PRN (16:53)
--- NOTE | 2019-11-06 17:36 | PN ---
Progress Note for PARAG DAVIS Date: 11/06/2019 Room #: VM.203 SUBJECTIVE: This is hospital day #4 on an 89-year-old admitted with delirium and hallucinations in the setting of recent UTI and severe B12 deficiency. She has also had pretty significant unintentional weight loss and increased anxiety with a recent fall at home. The patient currently is denying pain. For increased trouble breathing and anxiety, she got some Ativan and Lasix. Unfortunately, she fell and had a laceration to her ear. She was admitted to observation and then went home. Here, she has had some poor oral intake per the nurses, not eating well. She has lost like 50 pounds in the last 15 months after she was diagnosed with heart failure. The patient yesterday could remember why she came in and today, she did not remember initially, but then when we started talking about it, she recalled that. She said, yesterday, she worked with therapy. They took her to a different room, then they left her sitting in a chair waiting to eat. The therapist did not do that, we are not quite sure if all the details are correct. She was also seeing like fire on the wall, but then there was no smoke. She happened to get some Haldol, with which she slept very well after. The patient is already eating better today. She is in good spirits. We had recently restarted her on her Celexa, which had been stopped when she had heart failure. She tried other medicines for anxiety without good results or she had side effects. She is not having any shortness of breath. She had been recently taken off Bumex. She gained a little bit of weight back after this, but now she has lost some weight. She denies any chest pain. She did have some atrial fibrillation with rapid rates this morning, up to 150, but that has now resolved. She has not had any fever or chills. Her recent urine test was coagulase-negative staph, so not found to have a true infection. She had received appropriate treatment for her recent UTI with Cipro, finishing that on 10/31/2019. OBJECTIVE: Vital Signs: The patient's temperature 98.2, pulse 84, blood pressure 113/58, respiratory rate 18, and O2 saturation of 95% on room air. Weight 61.9 kg. General: She is in no acute distress. Heart: Irregularly irregular with murmur. Respiratory: Lungs sounds are clear to auscultation bilaterally without crackles or wheezes. Abdomen: Positive bowel sounds. Soft, nondistended, and nontender. Extremities: Warm and dry. No edema. Mental Status: She is alert. She is orientated x3. She is able to answer questions. Currently, she is not overly depressed or anxious. LABORATORY DATA: Her lab work was not repeated today. ASSESSMENT: 1. Atrial fibrillation with rapid ventricular rates. This has already improved. She will continue her digoxin and Toprol. 2. 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 She is back on oral Bumex, seems to be doing well. 3. Severe B12 deficiency. She has received 2 of 7 doses of the IM B12. 4. Anxiety and depression. She is back on her home Celexa. We are going to substitute her for Lexapro. I think she will do better on this in the long run, and there are no cardiac concerns. 5. Delirium with hallucinations, likely related to recent urinary tract infection and B12 deficiency. We will switch her Haldol over to Risperdal 0.25 at bedtime for the next few days. If she tolerates that, we will increase it to during the day as well. May repeat 0.25 during the night if needed. 6. Weight loss, likely multifactorial due to heart failure, anxiety, change in medications, IBS. She also has a cyst-like lesion on her ovary, which we had found in the past with a mildly elevated CA-125. Recommendations are for a followup ultrasound and levels down the road. No urgent indications for any intervention right now. 7. Diet-controlled diabetes. We will repeat lab work tomorrow. There have been no concerns about blood sugars. 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 We will be monitoring with telemetry due to the rapid ventricular rates. We will be repeating her lab work tomorrow. We are adjusting her psychotropic medications. I discussed this with her and her son. The patient is doing well with therapies. However, emotionally and safety-valdez due to cognitive status, and also she had 20/30 on her mini-mental. She needs some additional cares. Options would include self-pay swing and possibly the [facility] versus even going back to [place] next week with increased caregivers. Social Work is involved. MKA: 11/06/2019 16:53:50 MODL: 11/06/2019 17:29:56 /[id number]
[2019-11-06] MEDS: Latanoprost 0.005% Ophth Soln 2.5 ML Bottle EYEBOTH SCH (19:37)
[2019-11-06] MEDS: Simvastatin 20 MG Tab PO SCH (19:38)
[2019-11-06] MEDS: Famotidine 20 MG Tab PO SCH (19:38)
[2019-11-06] MEDS: risperiDONE 0.25 MG Tab PO SCH (19:38)
[2019-11-06] MEDS: Acetaminophen 325 MG Tab PO PRN (19:38)
[2019-11-07] MEDS ORDERED: Citalopram 10 MG Tab PO SCH (08:00)
[2019-11-07] MEDS: Apixaban 2.5 MG Tab PO SCH ×2 (08:56→20:13)
[2019-11-07] MEDS: Digoxin 125 MCG Tab PO SCH (08:57)
[2019-11-07] MEDS: Psyllium 0.52 GM Cap PO SCH (08:57)
[2019-11-07] MEDS: Losartan 50 MG Tab PO SCH (08:57)
[2019-11-07] MEDS: Bumetanide 1 MG Tab PO SCH (08:58)
[2019-11-07] MEDS: Montelukast 10 MG Tab PO SCH (08:58)
[2019-11-07] MEDS: Cholecalciferol (Vitamin D3) 25 MCG Tab PO SCH (08:59)
[2019-11-07] MEDS: Aspirin 81 MG Tab.EC PO SCH (08:59)
[2019-11-07] MEDS: Metoprolol Succinate 50 MG Tab.ER PO SCH (09:00)
[2019-11-07] MEDS: Allopurinol 300 MG Tab PO SCH (09:00)
[2019-11-07] MEDS: Fluticasone-Salmeterol 113-14 MCG Powder Inhalant INH SCH (09:01)
[2019-11-07] MEDS: Hypromellose 0.3% Ophth Soln 15 ML Bottle EYEBOTH SCH ×2 (09:02→20:12)
[2019-11-07 10:55] LABS: ANION GAP 16.2 mmol/L (10-20)
--- NOTE | 2019-11-07 11:22 | CR ---
[id number] RAD/RAD Chest PA or AP 1V EXAM: RAD Chest PA or AP 1V INDICATION: SHORTNESS OF BREATH. COMPARISON: October 2019. DISCUSSION: Cardiomegaly and central vascular congestion. Blunting of the bilateral costophrenic sulci similar to the prior examination. This is either sequela small effusions versus scarring in the setting of COPD. No effusions on CT from June 2019. IMPRESSION: Cardiomegaly and central vascular congestion with blunting of the costophrenic sulci, possibly small effusions versus scarring from underlying COPD. Overall, no significant change from November 01, 2019. Edward Mcghee MD 11/07/19 1121 Thank you for allowing us to participate in the care of your patient.
[2019-11-07] MEDS ORDERED: Spironolactone 25 MG Tab PO SCH (14:30)
[2019-11-07 17:22] VITALS: BP 111/52; PULSE 78
[2019-11-07] MEDS: Famotidine 20 MG Tab PO SCH (20:13)
[2019-11-07] MEDS: Simvastatin 20 MG Tab PO SCH (20:14)
[2019-11-07] MEDS: Latanoprost 0.005% Ophth Soln 2.5 ML Bottle EYEBOTH SCH (20:14)
[2019-11-07] MEDS: risperiDONE 0.25 MG Tab PO SCH (20:15)
--- NOTE | 2019-11-07 22:02 | DISCH ---
PRIMARY DISCHARGE DIAGNOSES: 1. Delirium secondary to a recent urinary tract infection and B12 deficiency. 2. Severe B12 deficiency, now on intramuscular injections. 3. Severe malnutrition with considerable 50-pound weight loss over the past year related to heart failure, anxiety, irritable bowel syndrome, and poor oral intake. 4. Longstanding anxiety and depression. 5. 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 Recently stopped Bumex due to dehydration. Restarted on this hospital stay. She seems to be doing well. 6. Atrial fibrillation with rapid ventricular rates. Her rates are now controlled on her home medications. 7. Hallucinations with likely underlying dementia. Mini mental was 20/30. We will continue supportive care. Seems to be doing well on Risperdal at night. 8. Diet-controlled diabetes. 9. 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 REASON FOR ADMISSION: On the date of admission, this 89-year-old female who had recently been in for an observation stay after she received some Ativan and IV Lasix, had fallen requiring sutures to her right ear. She came into the clinic and was more confused. Lab work showed her to be severely deficient of B12. Recommendations were made that she be admitted for IM B12 as well as restarting of her Bumex. She was placed on telemetry and did have some tachycardia, but as her anxiety improved, this also improved, and her breathing did improve, but she was still having some orthopnea. Chest x-ray was repeated and showed no pleural effusions or significant changes from the 11/01 x-ray. Otherwise, she was not having any pain. She was answering questions appropriately at times, but her short-term memory was affected. It seemed to go in and out. Some days were better than others. She was getting up. She was walking well with therapy. It was not felt she would require a skilled swing bed stay. However, it was felt that she would require further assistance than her assisted living and this was also discussed with her assisted living nurse and her son who was present for visits during her stay. The patient otherwise did get Haldol and she finally slept well with it night and had no further hallucinations of seeing fire on the [place], but this was switched over to Risperdal 0.25 mg at bedtime after I consulted with Psychiatry. She tolerated this well. She had recently been restarted on Celexa, which she had taken back in 2018 before she was admitted with heart failure. Overall, the patient was feeling better, able to be weaned off oxygen during the day. She chronically uses it at night. At first, she was not eating well during this hospital stay, but in the last 24 hours, she was eating 100% of all meals. She was having bowel movements, yet she did feel constipated. She did not think she had one since she had been here, but she had several. She is on Metamucil daily. PHYSICAL EXAMINATION: Discharging vitals: Included temperature of 97.7, pulse 75, blood pressure 129/58, weight 62.5 kg, respiratory rate 18, and O2 of 96% on room air. General: She was in no acute distress. Heart: Irregularly irregular with murmur. Lungs: Sounds were clear to auscultation bilaterally without crackles or wheezes. Abdomen: Had positive bowel sounds. Soft, nontender. Extremities: Warm and dry. No edema. Mental status: She is alert. She is orientated x3. DISCHARGING LABORATORY WORK: Did show white count normal 6.7, hemoglobin 12, platelets 288. Sodium 138, potassium 4.2, chloride 100, bicarb 26, BUN 25, creatinine 1.2, glucose 161, calcium 8.5, bilirubin 0.7, AST 16, ALT 19, alk phos 92. ProBNP 3750. Albumin 3.1. Repeat urine testing was not showing any infection. She had recently completed a course of Cipro. DISCHARGE PLANS AND INSTRUCTIONS: She is going over to nonskilled swing bed for several days. There was not a snf room bed available. Assisted living next week is a possible option with increased caregivers. She does have multiple upcoming testing scheduled including an MRI for Sunday in case there was a stroke that did occur that did increase her confusion. She is also scheduled for a carotid ultrasound coming up and an echo test to check heart function on 11/11. Going over to nonskilled swing bed. Social Service is still involved in her care. Code status was discussed with her and her son and she does not want CPR or intubation all other treatments up to that point are desired. Greater than 30 minutes spent on this discharge process. MKA: 11/07/2019 13:08:46 MODL: 11/07/2019 21:51:54 /[id number] [facility]
== END 2019-11-07 16:00 | disposition swing bed (61) | DRG 640 ==
LOC: VM.MS 17:21
PROVIDERS: ADMIT Family Medicine; ATTEND Internal Medicine
DX: E53.8 Deficiency of other specified B group vitamins (principal); E43 Unspecified severe protein-calorie malnutrition; I50.42 Chronic combined systolic (congestive) and diastolic (congestive) heart failure; R44.3 Hallucinations, unspecified; F03.90 Unspecified dementia, unspecified severity, without behavioral disturbance, psychotic disturbance, mood disturbance, and anxiety; F41.9 Anxiety disorder, unspecified; F32.9 Major depressive disorder, single episode, unspecified; E11.9 Type 2 diabetes mellitus without complications; E86.0 Dehydration; I48.91 Unspecified atrial fibrillation; D47.2 Monoclonal gammopathy; G93.89 Other specified disorders of brain; Z88.5 Allergy status to narcotic agent; Z88.2 Allergy status to sulfonamides; Z88.8 Allergy status to other drugs, medicaments and biological substances; Z98.49 Cataract extraction status, unspecified eye; Z90.49 Acquired absence of other specified parts of digestive tract; Z87.891 Personal history of nicotine dependence; Z79.899 Other long term (current) drug therapy
CPT/HCPCS: 36415; 71045; 80048; 80053; 81001; 81003; 83880; 85025; 85652; 87086; 94760; 97116-GP; 97161-GP; 97165-GO; 97535-GO; A9270-GY; J3420

== ENCOUNTER 2019-11-07 13:02 | Inpatient (IN) | payer BC, MEDICARE ==
[2019-11-07] MEDS ORDERED: RISPERIDONE 0.25 MG PO PRN (13:15)
[2019-11-07] MEDS ORDERED: Acetaminophen 325 MG Tab PO PRN (13:15)
[2019-11-07] MEDS ORDERED: Nitroglycerin 0.4 MG Tab.SL SL PRN (13:15)
[2019-11-07] MEDS ORDERED: Loperamide 2 MG Cap PO PRN (13:15)
[2019-11-07] MEDS ORDERED: Albuterol/Ipratropium 3.0-0.5 MG/3 ML Neb Soln INH PRN (13:15)
[2019-11-07] MEDS ORDERED: Ondansetron 4 MG Tab.DIS PO PRN (13:15)
[2019-11-07] MEDS ORDERED: Apixaban 2.5 MG Tab PO SCH (20:00)
[2019-11-07] MEDS ORDERED: Latanoprost 0.005% Ophth Soln 2.5 ML Bottle EYEBOTH SCH (20:00)
[2019-11-07] MEDS ORDERED: Fluticasone-Salmeterol 113-14 MCG Powder Inhalant INH SCH (20:00)
[2019-11-07] MEDS: CITALOPRAM 10 MG PO SCH (21:13)
[2019-11-07] MEDS: Hypromellose 0.3% Ophth Soln 15 ML Bottle EYEBOTH SCH (21:13)
[2019-11-07] MEDS: ELIQUIS 5 MG PO SCH (21:13)
[2019-11-07] MEDS: RISPERIDONE 0.25 MG PO SCH (21:14)
[2019-11-07] MEDS: SIMVASTATIN 20 MG PO SCH (21:14)
[2019-11-07] MEDS: FAMOTIDINE 20 MG PO SCH (21:14)
[2019-11-07] MEDS: SIMBRINZA EYEBOTH SCH (21:14)
[2019-11-08] MEDS ORDERED: Cholecalciferol (Vitamin D3) 25 MCG Tab PO SCH (08:00)
[2019-11-08] MEDS ORDERED: Bumetanide 1 MG Tab PO SCH (08:00)
[2019-11-08] MEDS ORDERED: Losartan 50 MG Tab PO SCH (08:00)
[2019-11-08] MEDS: ELIQUIS 5 MG PO SCH ×2 (10:02→20:29)
[2019-11-08] MEDS: PSYLLIUM 0.52 GM PO SCH (10:02)
[2019-11-08] MEDS: Metoprolol Succinate 50 MG Tab.ER (OWN SUPPLY) PO SCH (10:03)
[2019-11-08] MEDS: Spironolactone 25 MG Tab (OWN SUPPLY) PO SCH (10:04)
[2019-11-08] MEDS: BUMETANIDE 0.5 MG PO SCH (10:05)
[2019-11-08] MEDS: LOSARTAN 100 MG PO SCH (10:06)
[2019-11-08] MEDS: DIGOXIN 125 MCG PO SCH (10:06)
[2019-11-08] MEDS: ALLOPURINOL 300 MG PO SCH (10:06)
[2019-11-08] MEDS: Aspirin 81 MG Tab.EC PO SCH (10:07)
[2019-11-08] MEDS: Hypromellose 0.3% Ophth Soln 15 ML Bottle EYEBOTH SCH ×2 (10:08→20:28)
[2019-11-08] MEDS: SIMBRINZA EYEBOTH SCH ×2 (10:09→20:29)
[2019-11-08] MEDS: CYANOCOBALAMIN 1000 MCG/ML IM SCH (10:49)
[2019-11-08] MEDS: CITALOPRAM 10 MG PO SCH (20:27)
[2019-11-08] MEDS: FAMOTIDINE 20 MG PO SCH (20:27)
[2019-11-08] MEDS: SIMVASTATIN 20 MG PO SCH (20:27)
[2019-11-08] MEDS: RISPERIDONE 0.25 MG PO SCH (20:28)
[2019-11-09] MEDS: DIGOXIN 125 MCG PO SCH (10:01)
[2019-11-09] MEDS: PSYLLIUM 0.52 GM PO SCH (10:01)
[2019-11-09] MEDS: ELIQUIS 5 MG PO SCH ×2 (10:01→20:36)
[2019-11-09] MEDS: LOSARTAN 100 MG PO SCH (10:02)
[2019-11-09] MEDS: ALLOPURINOL 300 MG PO SCH (10:02)
[2019-11-09] MEDS: Metoprolol Succinate 50 MG Tab.ER (OWN SUPPLY) PO SCH (10:03)
[2019-11-09] MEDS: BUMETANIDE 0.5 MG PO SCH (10:03)
[2019-11-09] MEDS: Spironolactone 25 MG Tab (OWN SUPPLY) PO SCH (10:04)
[2019-11-09] MEDS: Hypromellose 0.3% Ophth Soln 15 ML Bottle EYEBOTH SCH ×2 (10:04→20:33)
[2019-11-09] MEDS: Aspirin 81 MG Tab.EC PO SCH (10:05)
[2019-11-09] MEDS: SIMBRINZA EYEBOTH SCH ×2 (10:05→20:37)
[2019-11-09] MEDS: SIMVASTATIN 20 MG PO SCH (20:33)
[2019-11-09] MEDS: RISPERIDONE 0.25 MG PO SCH (20:33)
[2019-11-09] MEDS: CITALOPRAM 10 MG PO SCH (20:33)
[2019-11-09] MEDS: FAMOTIDINE 20 MG PO SCH (20:33)
[2019-11-10 07:47] LABS: ANION GAP 8.2 mmol/L (10-20)
--- NOTE | 2019-11-10 08:02 | PCM.SN ---
- Free Text/Narrative Note: I stopped aldactone due to high potassium will recheck tomorrow unless she goes home then will recheck in 2-3 days.
[2019-11-10] MEDS: Hypromellose 0.3% Ophth Soln 15 ML Bottle EYEBOTH SCH ×2 (08:52→20:10)
[2019-11-10] MEDS: SIMBRINZA EYEBOTH SCH ×2 (08:52→20:09)
[2019-11-10] MEDS: CYANOCOBALAMIN 1000 MCG/ML IM SCH (08:53)
[2019-11-10] MEDS: PSYLLIUM 0.52 GM PO SCH (08:53)
[2019-11-10] MEDS: Aspirin 81 MG Tab.EC PO SCH (08:54)
[2019-11-10] MEDS: ELIQUIS 5 MG PO SCH ×2 (08:55→20:08)
[2019-11-10] MEDS: Metoprolol Succinate 50 MG Tab.ER (OWN SUPPLY) PO SCH (08:57)
[2019-11-10] MEDS: LOSARTAN 100 MG PO SCH (08:58)
[2019-11-10] MEDS: BUMETANIDE 0.5 MG PO SCH (08:58)
[2019-11-10] MEDS: ALLOPURINOL 300 MG PO SCH (08:58)
[2019-11-10] MEDS: DIGOXIN 125 MCG PO SCH (08:58)
[2019-11-10] MEDS: Spironolactone 25 MG Tab (OWN SUPPLY) PO SCH (09:00)
[2019-11-10] MEDS ORDERED: LORazepam 1 MG Tab PO ONE (12:30)
--- NOTE | 2019-11-10 15:24 | MR ---
[id number] MR/MRI Brain and Stem WO IV EXAM: MRI Brain and Stem WO IV CLINICAL DATA: ENCEPHALOMALACIA COMPARISON: CORRELATION IS MADE WITH THE CAT SCAN OF NOVEMBER 01, 2019 FINDINGS: There is no mass or mass effect There is no hemorrhage or hydrocephalus There are no extra-axial fluid collections Age-related encephalomalacic changes are seen There are subtle changes of probable amyloid angiopathy IMPRESSION: NO ACUTE PROCESS. Lex Muniz MD 11/10/19 1523 Thank you for allowing us to participate in the care of your patient.
[2019-11-10] MEDS: RISPERIDONE 0.25 MG PO SCH (20:07)
[2019-11-10] MEDS: SIMVASTATIN 20 MG PO SCH (20:07)
[2019-11-10] MEDS: FAMOTIDINE 20 MG PO SCH (20:08)
[2019-11-10] MEDS: CITALOPRAM 10 MG PO SCH (20:08)
[2019-11-11] MEDS: Aspirin 81 MG Tab.EC PO SCH (08:11)
[2019-11-11] MEDS: DIGOXIN 125 MCG PO SCH (08:11)
[2019-11-11] MEDS: LOSARTAN 100 MG PO SCH (08:11)
[2019-11-11] MEDS: ALLOPURINOL 300 MG PO SCH (08:11)
[2019-11-11] MEDS: BUMETANIDE 0.5 MG PO SCH (08:11)
[2019-11-11] MEDS: Metoprolol Succinate 50 MG Tab.ER (OWN SUPPLY) PO SCH (08:12)
[2019-11-11] MEDS: PSYLLIUM 0.52 GM PO SCH (08:13)
[2019-11-11] MEDS: Hypromellose 0.3% Ophth Soln 15 ML Bottle EYEBOTH SCH ×2 (08:13→20:14)
[2019-11-11] MEDS: ELIQUIS 5 MG PO SCH ×2 (08:13→20:13)
[2019-11-11] MEDS: SIMBRINZA EYEBOTH SCH ×2 (08:14→20:13)
[2019-11-11] MEDS: FAMOTIDINE 20 MG PO SCH (20:12)
[2019-11-11] MEDS: RISPERIDONE 0.25 MG PO SCH (20:12)
[2019-11-11] MEDS: CITALOPRAM 10 MG PO SCH (20:12)
[2019-11-11] MEDS: SIMVASTATIN 20 MG PO SCH (20:13)
[2019-11-12] MEDS: LOSARTAN 100 MG PO SCH (08:11)
[2019-11-12] MEDS: PSYLLIUM 0.52 GM PO SCH (09:34)
[2019-11-12] MEDS: CYANOCOBALAMIN 1000 MCG/ML IM SCH (09:35)
[2019-11-12] MEDS: Hypromellose 0.3% Ophth Soln 15 ML Bottle EYEBOTH SCH ×2 (09:37→20:04)
[2019-11-12] MEDS: SIMBRINZA EYEBOTH SCH ×2 (09:37→20:03)
[2019-11-12] MEDS: Metoprolol Succinate 50 MG Tab.ER (OWN SUPPLY) PO SCH (09:38)
[2019-11-12] MEDS: BUMETANIDE 0.5 MG PO SCH (09:39)
[2019-11-12] MEDS: DIGOXIN 125 MCG PO SCH (09:39)
[2019-11-12] MEDS: ALLOPURINOL 300 MG PO SCH (09:39)
[2019-11-12] MEDS: ELIQUIS 5 MG PO SCH ×2 (09:41→20:00)
[2019-11-12] MEDS: Aspirin 81 MG Tab.EC PO SCH (09:42)
[2019-11-12] MEDS: CITALOPRAM 10 MG PO SCH (20:01)
[2019-11-12] MEDS: FAMOTIDINE 20 MG PO SCH (20:02)
[2019-11-12] MEDS: SIMVASTATIN 20 MG PO SCH (20:02)
[2019-11-13] MEDS: BUMETANIDE 0.5 MG PO SCH (08:10)
[2019-11-13] MEDS: ELIQUIS 5 MG PO SCH ×2 (08:10→19:51)
[2019-11-13] MEDS: Aspirin 81 MG Tab.EC PO SCH (08:10)
[2019-11-13] MEDS: Hypromellose 0.3% Ophth Soln 15 ML Bottle EYEBOTH SCH ×2 (08:10→19:48)
[2019-11-13] MEDS: ALLOPURINOL 300 MG PO SCH (08:11)
[2019-11-13] MEDS: PSYLLIUM 0.52 GM PO SCH (08:11)
[2019-11-13] MEDS: SIMBRINZA EYEBOTH SCH ×2 (08:12→19:49)
[2019-11-13] MEDS: Metoprolol Succinate 50 MG Tab.ER (OWN SUPPLY) PO SCH (08:13)
[2019-11-13] MEDS: DIGOXIN 125 MCG PO SCH (08:13)
--- NOTE | 2019-11-13 10:08 | PN ---
Progress Note for PARAG DAVIS Date: 11/13/2019 Room #: VM.203 SUBJECTIVE: This is an 89-year-old on swing bed, awaiting a snf bed, but still considering possibly going back to assisted living. She has been doing quite well. She was up walking with therapy. Her breathing has been good. She has had a good appetite here. Eating 100% of her meals. She is not in any pain. She did have an echo which showed stable heart function, when compared to her previous echo EF 50%. She was taken off Aldactone due to hyperkalemia earlier. Her losartan was held in anticipation of starting Entresto. The patient is agreeable to that. She states she has not been weighed all week, but she has been getting bed weights. PHYSICAL EXAMINATION: Vital Signs: Her weight is 60.8 kg, temp 99.1, pulse 70, blood pressure 145/38, respiratory rate 18, and O2 of 97% on room air. General: She is in no acute distress. Heart: Regularly irregular with murmur. Lungs: Lung sounds are clear to auscultation bilaterally without crackles or wheezes. Abdomen: Positive bowel sounds. Soft, nontender. Extremities: Warm and dry. No edema. Mental Status: She is alert, she is orientated x3. She recognizes me. ASSESSMENT: 1. Chronic systolic heart failure, EF 40%. Plan will be to start Entresto tomorrow as she has been off the losartan greater than 36 hours at that point. 2. Fall with head injury and delirium secondary to that along with the urinary tract infection and B12 deficiency, this is resolving. 3. Severe B12 deficiency, she is on the IM injections. 4. Longstanding anxiety and depression. Her Risperdal was increased to 0.5 at bedtime. She is tolerating that well. 5. Severe malnutrition and weight loss. She is now eating good. 6. Atrial fibrillation, rate controlled. She is on Eliquis. 7. Hallucinations. These have resolved after starting the Risperdal. 8. Diet-controlled diabetes. 9. Monoclonal gammopathy of undetermined significance. PLAN: At this point, the patient will continue on swing bed cares while awaiting a snf bed. We will relook at trying to go back to assisted living with home health next week if possible. MKA: 11/13/2019 08:40:03 MODL: 11/13/2019 10:02:27 /[id number]
[2019-11-13] MEDS: SIMVASTATIN 20 MG PO SCH (19:46)
[2019-11-13] MEDS: FAMOTIDINE 20 MG PO SCH (19:46)
[2019-11-13] MEDS: CITALOPRAM 10 MG PO SCH (19:46)
[2019-11-14] MEDS: BUMETANIDE 0.5 MG PO SCH (07:51)
[2019-11-14] MEDS: Hypromellose 0.3% Ophth Soln 15 ML Bottle EYEBOTH SCH ×2 (07:53→20:23)
[2019-11-14] MEDS: ELIQUIS 5 MG PO SCH ×2 (07:53→20:23)
[2019-11-14] MEDS: DIGOXIN 125 MCG PO SCH (07:54)
[2019-11-14] MEDS: Aspirin 81 MG Tab.EC PO SCH (07:54)
[2019-11-14] MEDS: PSYLLIUM 0.52 GM PO SCH (07:55)
[2019-11-14] MEDS: SIMBRINZA EYEBOTH SCH ×2 (07:56→20:22)
[2019-11-14] MEDS: ALLOPURINOL 300 MG PO SCH (07:58)
[2019-11-14] MEDS: Metoprolol Succinate 50 MG Tab.ER (OWN SUPPLY) PO SCH (08:01)
[2019-11-14] MEDS: CYANOCOBALAMIN 1000 MCG/ML IM SCH (08:02)
[2019-11-14] MEDS: SIMVASTATIN 20 MG PO SCH (20:21)
[2019-11-14] MEDS: CITALOPRAM 10 MG PO SCH (20:22)
[2019-11-14] MEDS: FAMOTIDINE 20 MG PO SCH (20:22)
[2019-11-15] MEDS: ELIQUIS 5 MG PO SCH ×2 (07:49→20:10)
[2019-11-15] MEDS: DIGOXIN 125 MCG PO SCH (07:50)
[2019-11-15] MEDS: Aspirin 81 MG Tab.EC PO SCH (07:50)
[2019-11-15] MEDS: BUMETANIDE 0.5 MG PO SCH (07:51)
[2019-11-15] MEDS: ALLOPURINOL 300 MG PO SCH (07:51)
[2019-11-15] MEDS: Metoprolol Succinate 50 MG Tab.ER (OWN SUPPLY) PO SCH (07:51)
[2019-11-15] MEDS: PSYLLIUM 0.52 GM PO SCH (07:52)
[2019-11-15] MEDS: SIMBRINZA EYEBOTH SCH ×2 (07:52→20:05)
[2019-11-15] MEDS: Hypromellose 0.3% Ophth Soln 15 ML Bottle EYEBOTH SCH ×2 (07:52→20:05)
[2019-11-15] MEDS: CITALOPRAM 10 MG PO SCH (20:06)
[2019-11-15] MEDS: SIMVASTATIN 20 MG PO SCH (20:07)
[2019-11-15] MEDS: FAMOTIDINE 20 MG PO SCH (20:07)
[2019-11-16] MEDS: Aspirin 81 MG Tab.EC PO SCH (08:43)
[2019-11-16] MEDS: PSYLLIUM 0.52 GM PO SCH (08:43)
[2019-11-16] MEDS: ELIQUIS 5 MG PO SCH ×2 (08:44→21:06)
[2019-11-16] MEDS: ALLOPURINOL 300 MG PO SCH (08:44)
[2019-11-16] MEDS: BUMETANIDE 0.5 MG PO SCH (08:45)
[2019-11-16] MEDS: CYANOCOBALAMIN 1000 MCG/ML IM SCH (08:46)
[2019-11-16] MEDS: Metoprolol Succinate 50 MG Tab.ER (OWN SUPPLY) PO SCH (08:47)
[2019-11-16] MEDS: Hypromellose 0.3% Ophth Soln 15 ML Bottle EYEBOTH SCH ×2 (08:48→21:10)
[2019-11-16] MEDS: SIMBRINZA EYEBOTH SCH ×2 (08:49→21:11)
[2019-11-16] MEDS: FAMOTIDINE 20 MG PO SCH (21:07)
[2019-11-16] MEDS: SIMVASTATIN 20 MG PO SCH (21:08)
[2019-11-16] MEDS: CITALOPRAM 10 MG PO SCH (21:09)
[2019-11-17 07:14] LABS: ANION GAP 11.5 mmol/L (10-20)
[2019-11-17] MEDS: Aspirin 81 MG Tab.EC PO SCH (08:38)
[2019-11-17] MEDS: ELIQUIS 5 MG PO SCH (08:38)
[2019-11-17] MEDS: SIMBRINZA EYEBOTH SCH (08:38)
[2019-11-17] MEDS: PSYLLIUM 0.52 GM PO SCH (08:38)
[2019-11-17] MEDS: BUMETANIDE 0.5 MG PO SCH (08:39)
[2019-11-17] MEDS: ALLOPURINOL 300 MG PO SCH (08:40)
[2019-11-17] MEDS: Hypromellose 0.3% Ophth Soln 15 ML Bottle EYEBOTH SCH (08:40)
[2019-11-17] MEDS: Metoprolol Succinate 50 MG Tab.ER (OWN SUPPLY) PO SCH (08:41)
[2019-11-17 08:42] VITALS: BP 140/66; PULSE 72
--- NOTE | 2019-11-17 12:23 | CR ---
[id number] RAD/RAD Chest PA And Lateral EXAM: FRONTAL AND LATERAL CHEST INDICATION: CHF. COMPARISON: November 07, 2019. DISCUSSION: Stable cardiomegaly without current evidence of pulmonary edema. Edema present on the prior study has resolved. Decreased or resolved pleural effusions. Hyperinflation is compatible with chronic obstructive pulmonary disease. Biconvex curvature of the thoracolumbar spine. Unchanged mild to moderate lower thoracic compression fracture. IMPRESSION: 1. Stable cardiomegaly without current evidence of congestive heart failure. Fercho Spence MD 11/17/19 1371 Thank you for allowing us to participate in the care of your patient.
--- NOTE | 2019-11-17 12:28 | CT ---
[id number] CT/CT Head WO IV EXAM: CT Head WO IV CLINICAL DATA: Altered mental status. COMPARISON STUDY: MRI and CT examinations from November 01 and November 10, 2019. FINDINGS: No intracranial hemorrhage, extra-axial fluid collection, mass, or acute ischemia. No hydrocephalus. Chronic findings have not significantly changed since November 01 or November 10. IMPRESSION: No acute findings in the brain or significant change from recent prior examinations. Edward Mcghee MD 11/17/19 1467 Thank you for allowing us to participate in the care of your patient.
[2019-11-17] MEDS ORDERED: Ciprofloxacin in D5W 200 MG in Premix Bag 1 BAG IV SCH ×2 (20:00)
--- NOTE | 2019-11-20 10:54 | DISCH ---
PRIMARY DISCHARGE DIAGNOSES: Includes: 1. Delirium, worsening due to dehydration and urinary tract infection. 2. Urinary tract infection. Culture negative. 3. Chronic systolic heart failure, EF 40%. Recently started on Entresto. 4. Atrial fibrillation, rate controlled. 5. Severe B12 deficiency, on intramuscular injections. 6. Diet-controlled diabetes. 7. Hallucinations, on Risperdal. 8. Monoclonal gammopathy, longstanding, with mild anemia. 9. Renal insufficiency. Creatinine of up to 1.6. REASON FOR ADMISSION: On the date of admission, this 89-year-old female who had been on acute cares, but was doing well with therapies, so did not qualify for a skilled stay, but was still not feeling up to returning to assisted living. She was having increased confusion over the weekend, increased frequency of urination, and then hesitancy this morning. Therefore, UA was done, which was positive. She was placed on IV Cipro and plan was to get some IV fluids and monitor her CHF and lab work closely as her creatinine did go up to 1.6. Therefore, she is being discharged to go over to acute cares today. DISCHARGE PLANS AND INSTRUCTIONS: Back on acute care for acute medical treatments. ROBERTA: 11/19/2019 09:34:06 MODL: 11/20/2019 03:02:16 /[id number]
== END 2019-11-17 13:26 | disposition critical access hospital (66) | DRG 884 ==
LOC: VM.MS 16:00
PROVIDERS: ADMIT Internal Medicine; ATTEND Internal Medicine
DX: F03.90 Unspecified dementia, unspecified severity, without behavioral disturbance, psychotic disturbance, mood disturbance, and anxiety (principal); E43 Unspecified severe protein-calorie malnutrition; I50.42 Chronic combined systolic (congestive) and diastolic (congestive) heart failure; F05 Delirium due to known physiological condition; R44.3 Hallucinations, unspecified; E53.8 Deficiency of other specified B group vitamins; F41.9 Anxiety disorder, unspecified; F32.9 Major depressive disorder, single episode, unspecified; I48.91 Unspecified atrial fibrillation; E11.9 Type 2 diabetes mellitus without complications; D47.2 Monoclonal gammopathy; Z68.21 Body mass index [BMI] 21.0-21.9, adult
CPT/HCPCS: 36415; 70450; 70551; 71046; 80048; 81001; 83880; 84132; 85025; 87086; 97164-GP; A9270-GY; J3420

== ENCOUNTER 2019-11-17 11:03 | Inpatient (IN) | payer MEDICARE, BC ==
[2019-11-17] MEDS ORDERED: risperiDONE 0.25 MG Tab PO PRN ×2 (12:19→12:31)
[2019-11-17] MEDS ORDERED: Loperamide 2 MG Cap PO PRN (12:19)
[2019-11-17] MEDS ORDERED: Nitroglycerin 0.4 MG Tab.SL SL PRN (12:19)
[2019-11-17] MEDS ORDERED: Acetaminophen 325 MG Tab PO PRN (12:19)
[2019-11-17] MEDS: Ciprofloxacin in D5W 200 MG in Premix Bag 1 BAG IV SCH ×4 (13:46→19:33)
[2019-11-17] MEDS ORDERED: Sodium Chloride 0.9% 500 ML IV SCH (16:00)
[2019-11-17] MEDS ORDERED: Cyanocobalamin (Vitamin B12) 1,000 MCG/ML SDV IM SCH (16:00)
--- NOTE | 2019-11-17 16:23 | PN ---
Progress Note for PARAG DAVIS Date: 11/17/2019 Room #: VM.203 SUBJECTIVE: This is an 89-year-old who has been on swing bed. She was improving middle of last week, but even Sunday she was feeling her legs get weaker. She was having some bradycardia, so her digoxin was stopped. Her losartan was switched over to Entresto. She has not had a fever or chills, but she was having some frequency of urination, and now she is having some hesitancy. No burning. No new stomach pain. She was having bowel movements last yesterday, but she has felt more constipated. Otherwise, she does not have any increased shortness of breath. She has a little bit of a cough. She has known heart failure with an EF of 40%. She has had a fall prior to this admission and her head CT at that time was okay. Last night, she woke up, she was confused, she forgot she was in the hospital. She said she had to get her car so she could get to meet me actually with breakfast. Otherwise, this morning, she is able to answer questions. She was redirected last night without any extra medications. OBJECTIVE: Vital Signs: Her temperature was 97.3, pulse 72, blood pressure 135/45, respiratory rate 18, and O2 of 95% on room air. General: She was in no acute distress. Heart: Irregularly irregular with murmur. Lungs: Her lung sounds were clear to auscultation bilaterally without crackles or wheezes. Abdomen: Has positive bowel sounds. Nontender. Extremities: Warm and dry. No edema. Mental Status: She is alert. She is orientated that she was at the hospital. It did take her a little bit. She says she had a look in the hallway and see the rails. She is aware who I am. Her daughter is present for a visit. LABORATORY DATA: Her lab work was repeated today. Her last urine culture grew Staph coagulase negative on 11/04. She had Klebsiella earlier this month outpatient that was treated. UA did show 5-10 wbc's, no rbc's. She had trace leukocyte esterase. Her proBNP was down to 1718. Sodium 139, potassium 4.5, chloride 101, bicarb 31, BUN 47, creatinine 1.6, glucose 30, calcium 8.3. White count normal at 6.2, hemoglobin stable at 11, and platelets were 209. Her creatinine had been better like 1.1 and 1.2, and the BUN also went up. Her CT of the lungs did not show any pneumonia or pulmonary edema. Her head CT did not show any acute findings. ASSESSMENT AND PLAN: 1. Delirium, worsening again, could be due to dehydration. She has some acute renal failure which I feel is more related to dehydration than medication changes. I am going to place her back on acute cares, give her gentle rehydration with 500 mL of fluid. 2. Urinary tract infection. I am going to place her on some IV Cipro. post void around 100 3. Chronic systolic heart failure. EF 40%. She is on Entresto; this replaced losartan. We will repeat lab work tomorrow and monitor closely for any congestive heart failure. 4. Atrial fibrillation. This is now rate controlled. She is off digoxin that could have slightly worsened how she feels overall. We may need to restart that if needed for her heart failure. 5. Severe B12 deficiency. She is getting the IM injections now planned for every 2 weeks. 6. Diet-controlled diabetes. 7. Hallucinations. They had improved. She is still on the Risperdal. We will continue with the same. 8. Monoclonal gammopathy of undetermined significance and mild anemia. PLAN: At this point, the patient is admitted back to acute cares. We will place her on 500 mL of fluid and hold on her Bumex. We will repeat lab work tomorrow. We will treat her with IV Cipro. Anticipate she will need at least 2 days of acute stay before returning back to swing bed. We will likely get her reassessed by therapies. TU: 11/17/2019 15:54:44 MODL: 11/17/2019 16:17:44 /[id number] MARISOL
[2019-11-17] MEDS ORDERED: Ondansetron 4 MG/2 ML SDV IVPUSH PRN (17:22)
[2019-11-17] MEDS: LUMIGAN 0.01% EYEBOTH SCH (19:44)
[2019-11-17] MEDS: SIMBRINZA EYEBOTH SCH (19:44)
[2019-11-17] MEDS: Hypromellose 0.3% Ophth Soln 15 ML Bottle EYEBOTH SCH (19:44)
[2019-11-17] MEDS: ENTRESTO PO SCH (19:45)
[2019-11-17] MEDS: risperiDONE 0.25 MG Tab PO SCH (19:45)
[2019-11-17] MEDS: Simvastatin 20 MG Tab PO SCH (19:46)
[2019-11-17] MEDS: Citalopram 10 MG Tab PO SCH (19:46)
[2019-11-17] MEDS: Apixaban 2.5 MG Tab PO SCH (19:46)
[2019-11-17] MEDS: Montelukast 10 MG Tab PO SCH (19:46)
[2019-11-18] MEDS: Apixaban 2.5 MG Tab PO SCH ×2 (07:43→20:02)
[2019-11-18] MEDS: Psyllium 0.52 GM Cap PO SCH (07:43)
[2019-11-18] MEDS: Metoprolol Succinate 50 MG Tab.ER PO SCH (07:44)
[2019-11-18] MEDS: Cholecalciferol (Vitamin D3) 25 MCG Tab PO SCH (07:45)
[2019-11-18] MEDS: Aspirin 81 MG Tab.EC PO SCH (07:45)
[2019-11-18 07:46] LABS: ANION GAP 11.1 mmol/L (10-20)
[2019-11-18] MEDS: Ciprofloxacin in D5W 200 MG in Premix Bag 1 BAG IV SCH ×2 (07:47)
[2019-11-18] MEDS: ENTRESTO PO SCH ×3 (07:48→21:23)
[2019-11-18] MEDS ORDERED: Bumetanide 1 MG Tab PO SCH (08:00)
--- NOTE | 2019-11-18 09:33 | PN ---
Progress Note for PARAG DAVIS Date: 11/18/2019 Room #: [id number] SUBJECTIVE: Hospital acute day #2 on an 89-year-old, readmitted with UTI, nausea, and dehydration. She did get a dose of IV Cipro yesterday. She does not feel like that made her nausea worse. She has been afebrile. She has not had any further urinary hesitancy and was having postvoid of only around 100. She did have low heart rate 55 this morning, so her metoprolol was held. Otherwise, she has not felt lightheaded or dizzy. She is still having periods of confusion like today. She was talking about fixing her wrist wrap and trying to get into the car. We had to remind her that she is in the hospital. Breathing is good. She slept all night. OBJECTIVE: Vital Signs: Her temperature is 98.7; pulse 55; blood pressure 113/57, previous to that 100/42; respiratory rate 18 and O2 of 97% on room air this morning. General: She is in no acute distress. Heart: Irregularly irregular with murmur. Lungs: Lung sounds are clear to auscultation bilaterally without crackles or wheezes. Abdomen: Nondistended. Extremities: Warm and dry. No edema. Mental Status: She is alert. She recognizes me. She is aware she is in the hospital on redirection. LABORATORY WORK: White count 6, hemoglobin 11, platelets 211. Sodium 138; potassium 5.1; chloride 101; bicarb 31; BUN 46; creatinine 1.6, same as yesterday; glucose 97; calcium 8.1; magnesium 2.2. ASSESSMENT AND PLAN: 1. Dehydration with delirium. This is improving. 2. Urinary tract infection, culture pending, day #2 of Cipro. 3. Severe malnutrition. We will get her on some protein powder and have her seen by the sr. payroll manager. She is eating 100% of her meals. 4. Atrial fibrillation with bradycardia. We will put her on telemetry and see what she does over the next 24 hours. 5. Chronic systolic heart failure. EF is 40%. She is on Entresto. We are holding Bumex. Monitor for any signs or symptoms of heart failure. 6. Severe B12 deficiency. She is on IM injections weekly. 7. Diet-controlled diabetes. 8. Renal insufficiency with chronic kidney disease. We will repeat her creatinine tomorrow. We will encourage oral intake. 9. Hallucinations and Anxiety. Overall these have improved. We will continue the Risperdal. 10.Monoclonal gammopathy of undetermined significance and mild anemia, which are stable. PLAN: At this point, the patient will continue acute cares with IV Cipro. We will place her on telemetry. We will hold her Bumex. We will hold off on further fluids. We will get her to see Nutrition. We will give her protein powder for DVT prophylaxis. She is on Eliquis. MKA: 11/18/2019 08:42:49 MODL: 11/18/2019 09:11:22 /[id number] MTDD
[2019-11-18] MEDS: Hypromellose 0.3% Ophth Soln 15 ML Bottle EYEBOTH SCH ×2 (09:43→20:03)
[2019-11-18] MEDS: SIMBRINZA EYEBOTH SCH ×2 (09:44→20:01)
[2019-11-18] MEDS: Citalopram 10 MG Tab PO SCH (20:02)
[2019-11-18] MEDS: risperiDONE 0.25 MG Tab PO SCH (20:03)
[2019-11-18] MEDS: Montelukast 10 MG Tab PO SCH (20:03)
[2019-11-18] MEDS: Simvastatin 20 MG Tab PO SCH (20:03)
[2019-11-18] MEDS: LUMIGAN 0.01% EYEBOTH SCH (20:03)
[2019-11-19] MEDS: Metoprolol Succinate 50 MG Tab.ER PO SCH (08:16)
[2019-11-19] MEDS: Psyllium 0.52 GM Cap PO SCH (08:16)
[2019-11-19] MEDS: SIMBRINZA EYEBOTH SCH ×2 (08:17→20:13)
[2019-11-19] MEDS: Hypromellose 0.3% Ophth Soln 15 ML Bottle EYEBOTH SCH ×2 (08:17→20:12)
[2019-11-19] MEDS: Cholecalciferol (Vitamin D3) 25 MCG Tab PO SCH (08:17)
[2019-11-19] MEDS: Aspirin 81 MG Tab.EC PO SCH (08:17)
[2019-11-19] MEDS: Apixaban 2.5 MG Tab PO SCH ×2 (08:17→20:11)
[2019-11-19] MEDS ORDERED: Bumetanide 1 MG Tab PO ONE (08:18)
--- NOTE | 2019-11-19 10:57 | PN ---
Progress Note for PARAG DAVIS Date: 11/19/2019 Room #: VM.203 SUBJECTIVE: This is hospital day #3 on an 89-year-old, readmitted to acute care due to delirium with dehydration and a UTI. Her urine culture from 11/17 did come back negative for any growth. Therefore, her Cipro was discontinued yesterday. She has been off her Bumex. She denies any shortness of breath. She did feel some heart palpitations this AM. She had to get up and kendrick to the bathroom this morning. Yesterday, her pulse was only 50s. Therefore, her morning Toprol was held. She has a known history of atrial fibrillation and she went down to a rate of 35 with a 2.2 second pause in the afternoon and then had 9 beats of V-tach and then she had some RVR with her AFib rates up to the 150s about 5 a.m. this morning. She otherwise has continued to eat 100% of her meals. All episodes were brief. OBJECTIVE: Vital Signs: Her temperature was 97.6 this morning. Her pulse rate was 80s to 100s, weight 63.86 kg, blood pressure 150/80, respiratory rate 18, and O2 of 95 on room air. General: She was in no acute distress. Heart: Irregularly irregular with murmur. Lungs: Sounds were mostly clear to auscultation with some slight decrease in both bases. Abdomen: Nondistended. Extremities: Warm and dry. Just trace edema. Mental Status: She is alert. She is orientated x3. LAB WORK: Did show white count 7, hemoglobin 11.1, platelets 211. Sodium 138, potassium 5.5, chloride 102, bicarb 31, BUN 40, creatinine down to 1.3, glucose 93, calcium 8.2. Phos 3.4. Albumin 2.9. Mag was 2.2 yesterday, pending today. ASSESSMENT: 1. 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 Strips will be sent down to Cardiology for review. She did get her Toprol dose this morning. We will continue to monitor with telemetry. 2. Delirium with some mild dehydration. This has improved. In fact, now I feel it is time to restart her oral Bumex. 3. Hyperkalemia, mild. She is on the Entresto. We will restart the Bumex and check her lab work again tomorrow. 4. Severe malnutrition. She is being seen by the dietitian. She is eating well now, and she has protein powder. 5. Chronic systolic heart failure. Ejection fraction is 40%. I did restart a dose of Bumex today. Blood pressure is slightly elevated too, so I think this is indicated. 6. Severe B12 deficiency. She is getting IM injections. 7. Diet-controlled diabetes. 8. Ventricular tachycardia. We will repeat her magnesium, keep her on her beta serenity. 9. Renal insufficiency with chronic kidney disease. We will monitor kidney function closely, it is improving. 10.Hallucinations and anxiety. She is on Risperdal. 11.Monoclonal gammopathy, which is chronic, with mild anemia. PLAN: At this point, discussed with the patient and her daughter that we need to monitor her heart rates closely. Sometimes pacemakers are even indicated versus other medication adjustments. We will monitor her electrolytes closely. We will restart her Bumex. She is now off antibiotics. EP called me back and discussed cutting the Toprol down to 25 mg and continuing to monitor as long as episodes are brief no indication to transfer for a pacemaker. 37 minutes of floor time spent with the patient, her daughter, and coordination of care. MKA: 11/19/2019 09:43:27 MODL: 11/19/2019 10:50:12 /[id number] MARISOL
[2019-11-19] MEDS: ENTRESTO PO SCH ×2 (12:32→20:10)
[2019-11-19] MEDS: LUMIGAN 0.01% EYEBOTH SCH (20:10)
[2019-11-19] MEDS: risperiDONE 0.25 MG Tab PO SCH (20:11)
[2019-11-19] MEDS: Citalopram 10 MG Tab PO SCH (20:12)
[2019-11-19] MEDS: Montelukast 10 MG Tab PO SCH (20:12)
[2019-11-19] MEDS: Simvastatin 20 MG Tab PO SCH (20:12)
[2019-11-20 07:31] LABS: ANION GAP 9.8 mmol/L (10-20)
[2019-11-20] MEDS: Aspirin 81 MG Tab.EC PO SCH (08:34)
[2019-11-20] MEDS: Apixaban 2.5 MG Tab PO SCH ×2 (08:34→19:35)
[2019-11-20] MEDS: Cholecalciferol (Vitamin D3) 25 MCG Tab PO SCH (08:35)
[2019-11-20] MEDS: Metoprolol Succinate 50 MG Tab.ER PO SCH (08:35)
[2019-11-20] MEDS: Psyllium 0.52 GM Cap PO SCH (08:35)
[2019-11-20] MEDS: Hypromellose 0.3% Ophth Soln 15 ML Bottle EYEBOTH SCH ×2 (08:37→19:43)
[2019-11-20] MEDS: ENTRESTO PO SCH ×2 (08:37→19:41)
[2019-11-20] MEDS: SIMBRINZA EYEBOTH SCH ×2 (09:12→19:44)
--- NOTE | 2019-11-20 14:21 | PN ---
Progress Note for PARAG DAVIS Date: 11/20/2019 Room #: VM.203 SUBJECTIVE: This is hospital day #4 on acute for an 89-year-old, readmitted from swing bed due to delirium and dehydration, concern for UTI. She did get 500 of fluid. Her Bumex was held; it was restarted yesterday 1 mg. Her blood pressure is improved. Her breathing is better. She is much more clear today. She is answering questions appropriately. She is remembering things appropriately. She did sleep well last night. It sounds like she did not even get up to use the restroom per the nurse, did have heart rates down around 1 a.m. as low as 32. It was in the 30s to 40s for about 40 minutes with a 2.4 second pause. She did get full dose 50 mg of Toprol yesterday morning. She had some RVR during the previous night. Discussion with Cardiology was to decrease her Toprol to 25 mg, she got that reduced dose today. The patient otherwise did have worsening renal function up to a creatinine of 1.6. It is now down to 1.3 which is near her baseline. OBJECTIVE: Vital Signs: Her weight is 62.9 kg, down slightly since yesterday, which is expected with the Bumex; temperature 97.5; pulse 65; blood pressure 130/48; heart rate 75; O2 is 98 on room air; respiratory rate 18. General: No acute distress. Heart: Irregularly irregular with murmur. Lungs: Lung sounds are clear to auscultation bilaterally without crackles or wheezes. Abdomen: Nondistended. Extremities: Warm and dry. No edema. Mental Status: She is alert and orientated x3. LABORATORY DATA: Lab work today does show the patient to have a white count 5.5, hemoglobin 10.8, platelets 198. Sodium 138, potassium 4.8, chloride 102, bicarb 31, BUN 38, creatinine 1.3, calcium 8.4, albumin was 2.8 yesterday. ASSESSMENT: 1. Atrial fibrillation with tachy-jayla syndrome. She is on reduced 25 mg dose of Toprol today. We will monitor her heart rates. If she continues to run down as low as the 30s and it is prolonged, we will need to contact Cardiology, EP again for possible pacemaker. However, the patient would like to avoid that. 2. Delirium with some mild dehydration. This is improving. 3. Severe malnutrition. She is eating well. She is on protein powder. She is seeing the dietitian. 4. Chronic systolic heart failure. EF is 40%. I will re-dose her Bumex now 0.5 mg every other day starting tomorrow. 5. Severe B12 deficiency. She is getting IM injections weekly. We will get her next B12 level with lab work in about 1 to 2 weeks [facility] her [facility]. 6. Diet-controlled diabetes. 7. Brief episode of ventricular tachycardia. This is when she had her beta- serenity held. We will continue to monitor with telemetry. This was on the 11/19/2019. 8. Renal insufficiency with chronic kidney disease. Creatinine improving. We will recheck again in 1 to 2 weeks. 9. Hallucinations and anxiety. This has been doing really well on Risperdal. We will discharge her on that. 10.Monoclonal gammopathy, which is chronic with mild anemia. PLAN: At this point, the patient will continue on acute cares due to severe bradycardia with her heart rates. Anticipate that she will be stable for snf transfer tomorrow. Otherwise, if she worsens, would consider a transfer to [place]. If she is stable but is not quite emotionally ready or physically feeling like she is ready for the snf, she would stay here on self-pay swing. This was discussed with her daughter and her [id number] today. She is not requiring any further antibiotics. MKA: 11/20/2019 13:40:48 MODL: 11/20/2019 14:16:43 /[id number]
[2019-11-20] MEDS ORDERED: Bumetanide 1 MG Tab PO SCH (18:00)
[2019-11-20] MEDS: LUMIGAN 0.01% EYEBOTH SCH (19:34)
[2019-11-20] MEDS: risperiDONE 0.25 MG Tab PO SCH (19:35)
[2019-11-20] MEDS: Montelukast 10 MG Tab PO SCH (19:35)
[2019-11-20] MEDS: Simvastatin 20 MG Tab PO SCH (19:35)
[2019-11-20] MEDS: Citalopram 10 MG Tab PO SCH (19:38)
[2019-11-21] MEDS: Apixaban 2.5 MG Tab PO SCH (07:33)
[2019-11-21] MEDS: Metoprolol Succinate 50 MG Tab.ER PO SCH (07:33)
[2019-11-21] MEDS: Psyllium 0.52 GM Cap PO SCH (07:33)
[2019-11-21] MEDS: Aspirin 81 MG Tab.EC PO SCH (07:33)
[2019-11-21] MEDS: Cholecalciferol (Vitamin D3) 25 MCG Tab PO SCH (07:33)
[2019-11-21] MEDS: ENTRESTO PO SCH (07:34)
[2019-11-21 07:35] VITALS: BP 102/46; PULSE 75
[2019-11-21] MEDS: Hypromellose 0.3% Ophth Soln 15 ML Bottle EYEBOTH SCH (07:35)
[2019-11-21] MEDS: SIMBRINZA EYEBOTH SCH (07:35)
--- NOTE | 2019-11-21 08:11 | PCM.DCSUM1 ---
Discharge Summary - Hospital Course Brief History: Ms. Díaz is an 89 yo female who was admitted to acute from swing bed for dehydration and delirium after she had been noted to have a change in her mentation. She had been on swing bed awaiting a bed at [facility]. - Discharge Data Discharge Date: 11/21/19 Discharge Disposition: DC/[facility] to [facility] Condition: Fair - Referral to Home Health Primary Care Physician: Beba Anderson, - Discharge Diagnosis/Problem(s) (1) Tachy-jayla syndrome SNOMED Code(s): 30050042 ICD Code: I49.5 - SICK SINUS SYNDROME Status: Acute Priority: High Current Visit: Yes (2) Atrial fibrillation with RVR SNOMED Code(s): 373792004273936 ICD Code: I48.91 - UNSPECIFIED ATRIAL FIBRILLATION Status: Acute Priority : High Current Visit: No (3) Delirium SNOMED Code(s): 0766896 ICD Code: R41.0 - DISORIENTATION, UNSPECIFIED Status: Resolved Priority: High Current Visit: Yes (4) CKD (chronic kidney disease) SNOMED Code(s): 117246893 ICD Code: N18.9 - CHRONIC KIDNEY DISEASE, UNSPECIFIED Status: Chronic Current Visit: Yes Qualifiers: Chronic kidney disease stage: stage 3 (moderate) Qualified Code(s): N18.3 - Chronic kidney disease, stage 3 (moderate) (5) Malnutrition SNOMED Code(s): 95603322 ICD Code: E46 - UNSPECIFIED PROTEIN-CALORIE MALNUTRITION Status: Chronic Current Visit: Yes Qualifiers: Malnutrition type: unspecified type Qualified Code(s): E46 - Unspecified protein-calorie malnutrition (6) B12 deficiency SNOMED Code(s): 664579584 ICD Code: E53.8 - DEFICIENCY OF OTHER SPECIFIED B GROUP VITAMINS Status: Chronic Priority: High Current Visit: Yes (7) Anxiety SNOMED Code(s): 58340054 ICD Code: F41.9 - ANXIETY DISORDER, UNSPECIFIED Status: Chronic Current Visit: No (8) Congestive heart failure SNOMED Code(s): 02651423 ICD Code: I50.9 - HEART FAILURE, UNSPECIFIED Status: Chronic Priority: Medium Current Visit: No (9) Depression SNOMED Code(s): 51580131 ICD Code: F32.9 - MAJOR DEPRESSIVE DISORDER, SINGLE EPISODE, UNSPECIFIED Status: Chronic Priority: Low Current Visit: No Qualifiers: Depression Type: major depressive disorder Psychotic features: without psychotic features (10) Diabetes mellitus SNOMED Code(s): 17079727 ICD Code: E11.9 - TYPE 2 DIABETES MELLITUS WITHOUT COMPLICATIONS Status: Chronic Priority: Medium Current Visit: No Qualifiers: Diabetes mellitus type: type 2 Diabetes mellitus halfway insulin use: without predatory animal exterminator use Diabetes mellitus complication status: with unspecified complications (11) Gout SNOMED Code(s): 08329802 ICD Code: M10.9 - GOUT, UNSPECIFIED Status: Chronic Current Visit: No (12) IBS (irritable bowel syndrome) SNOMED Code(s): 50665020 ICD Code: K58.9 - IRRITABLE BOWEL SYNDROME WITHOUT DIARRHEA Status: Chronic Current Visit: No - Patient Summary/Data Consults: Consultations 11/17/19 12:19 Consult to Case Management/Plasterer Helper [CONS] Routine PT Evaluation and Treatment [CONS] Routine 11/18/19 08:14 Nutrition Reassessment/Plan, Adult [Consult to Material Handling Technician] [CONS] Routine Hospital Course: The patient was admitted and given a small amount of IV fluids. Her diuretics were initially held. There was initial concern for a UTI so she was started on antibiotics; however, after testing came back negative, her antibiotics were stopped. Her labs improved and her diuretics were resumed. She was placed on telemetry. She was noted to have severe bradycardia as well as prolonged pauses on her telemetry. Therefore, her metoprolol was held. While this was held, she had significant tachycardia as well as an episode of ventricular tachycardia. Cardiology was consulted and recommended resuming the metoprolol but at a lower dose, which was done yesterday. Over the past 24 hours, her heart rates have been better and she is feeling much better. She had been apprehensive about going to [facility] but feels good about this today. Her acute hospitalization was otherwise uncomplicated. Follow-up plan already in place with her PCP. - Patient Instructions Diet: Usual Diet as Tolerated Activity: As Tolerated Driving: Do Not Drive Showering/Bathing: May Shower Notify Provider of: Fever, Increased Pain, Nausea and/or Vomiting Other/Special Instructions: Recheck on 12/02 for NH rounds. Lab work for bmp, cbc, and a B12 level on 11/27/19. B12 injections every 2 weeks next due on 11/30. Use oxygen 2 L at night. Bumex is 0.5 mg every other day next dose due on . Every other day weights and blood pressure checks and fax to me if gaining over 2 lbs or increased edema. Risperdal 0.5 mg at bedtime. PT/OT at [facility]. Protein powder 15 grams twice daily. Have the science interpreter follow to help promote some weight gain due to considerable weight loss. If any low HR under 35 or fast over 150 notify the supervisor offset plate preparation doctor if they persist longer than 5 minutes - Discharge Plan *PRESCRIPTION DRUG MONITORING PROGRAM REVIEWED*: Not Applicable *COPY OF PRESCRIPTION DRUG MONITORING REPORT IN PATIENT ISAEL: Not Applicable Home Medications: Home Meds Acetaminophen [Tylenol] 650 mg PO Q4H PRN 12/30/15 [History] Aspirin [Adult Low Dose Aspirin EC] 81 mg PO DAILY 12/30/15 [History] Montelukast [Singulair] 10 mg PO DAILY 12/30/15 [History] Nitroglycerin [Nitrostat] 0.4 mg SL ASDIRECTED PRN 12/30/15 [History] Propylene Glycol/Peg 400 [Systane 0.3-0.4% Eye Drops] 2 drop EYEBOTH BID [History] Albuterol/Ipratropium [Combivent Respimat] 2 puff IH QID PRN 02/13/16 [History] Bimatoprost [LUMIGAN 0.01% Ophth Soln] 1 drop EYEBOTH BEDTIME 02/14/16 [History] Apixaban [Eliquis] 5 mg PO BID 08/18/18 [History] Cholecalciferol (Vitamin D3) [Vitamin D3] 2,000 unit PO DAILY 05/29/19 [History] Citalopram Hydrobromide [Celexa] 10 mg PO BEDTIME 11/03/19 [History] Psyllium [Metamucil] 1 cap PO DAILY 11/03/19 [History] Acetaminophen [Pain Reliever] 650 mg PO BEDTIME 11/04/19 [History] guaiFENesin [Mucinex] 600 mg PO BID PRN 11/04/19 [History] Brinzolamide/Brimonidine Tart [Simbrinza 1%-0.2% Eye Drops] 1 drop EYEBOTH BID 11/07/19 [History] Bumetanide [Bumex] 0.5 mg PO Q48H tablet 11/20/19 [Rx] Cyanocobalamin (Vitamin B12) [Vitamin B12] 1,000 mcg IM Q14D sdv 11/20/19 [Rx] Entresto 49/51mg 1 tab PO BID #0 11/20/19 [Rx] Loperamide [Imodium AD] 2 cap PO ASDIRECTED PRN #0 MDD 8 caps 11/20/19 [Rx] Metoprolol Succinate [Toprol XL 50mg] 25 mg PO DAILY #0 tab.er 11/20/19 [Rx] risperiDONE [RisperiDAL] 0.5 mg PO BEDTIME tablet 11/20/19 [Rx] Oxygen Therapy Mode: Nasal Cannula (2 L at night) - Discharge Summary/Plan Comment DC Time >30 min.: No - General Info Date of Service: 11/21/19 Subjective Update: 89 yo female hospital day #5 initially admitted with dehydration and delirium, now with hospitalization complicated by bradycardia. She states she is doing well today. She is ready to discharge to the care center. She states her energy level is better since the medication changes yesterday. She has had no lightheadedness or dizziness. No chest pain, palpitations, or shortness of breath. No pauses or severe bradycardia on telemetry overnight. - Review of Systems General: Reports: No Symptoms HEENT: Reports: No Symptoms Pulmonary: Reports: No Symptoms Cardiovascular: Reports: No Symptoms Gastrointestinal: Reports: No Symptoms Genitourinary: Reports: No Symptoms Musculoskeletal: Reports: No Symptoms Skin: Reports: No Symptoms Neurological: Reports: No Symptoms - Patient Data Vitals - Most Recent: Last Vital Signs Temp 36.4 C 11/21/19 04:38 Pulse 75 11/21/19 07:33 Resp 18 11/21/19 04:38 BP 102/46 L 11/21/19 07:33 Pulse Ox 97 11/21/19 04:38 Weight - Most Recent: 62.823 kg I&O - Last 24 hours: Intake & Output 11/20/19 11/21/19 11/21/19 22:59 06:59 14:59 Intake Total 240 Output Total 300 600 Balance -60 -600 Med Orders - Current: Current Medications Acetaminophen (Tylenol) 650 mg PO Q4H PRN PRN Reason: Pain (Mild 1-3)/fever Apixaban (Eliquis) 5 mg PO BID [facility] Last Admin: 11/21/19 07:33 Dose: 5 mg Artificial Tears (Genteal Mild To Moderate Ophth Soln) 0 ml EYEBOTH BID [facility] Last Admin: 11/21/19 07:35 Dose: 1 drop Aspirin (Halfprin) 81 mg PO DAILY [facility] Last Admin: 11/21/19 07:33 Dose: 81 mg Bumetanide (Bumex) 0.5 mg PO Q48H [facility] Last Admin: 11/20/19 19:37 Dose: 0.5 mg Cholecalciferol (Vitamin D3) 50 mcg PO DAILY [facility] Last Admin: 11/21/19 07:33 Dose: 50 mcg Citalopram Hydrobromide (Celexa) 10 mg PO BEDTIME [facility] Last Admin: 11/20/19 19:38 Dose: 10 mg Cyanocobalamin (Vitamin B12) 1,000 mcg IM Q14D [facility] Last Admin: 11/17/19 16:40 Dose: 1,000 mcg Sodium Chloride (Normal Saline) 500 mls @ 100 mls/hr IV ASDIRECTED [facility] Last Admin: 11/17/19 16:40 Dose: 100 mls/hr Loperamide HCl (Imodium) 2 mg PO ASDIRECTED PRN PRN Reason: Diarrhea Metoprolol Succinate (Toprol Xl) 25 mg PO DAILY [facility] Last Admin: 11/21/19 07:33 Dose: 25 mg Montelukast Sodium (Singulair) 10 mg PO BEDTIME [facility] Last Admin: 11/20/19 19:35 Dose: 10 mg Nitroglycerin (Nitrostat) 0.4 mg SL ASDIRECTED PRN PRN Reason: chest pain, angina Entresto 49/51mg ( (Own Supply)) 1 tab PO BID [facility] Last Admin: 11/21/19 07:34 Dose: 1 tab Lumigan 0.01% (Own (Supply)) 1 each EYEBOTH BEDTIME [facility] Last Admin: 11/20/19 19:34 Dose: 1 each Simbrinza 1-0.2% ( (Own Supply)) 1 drop EYEBOTH BID [facility] Last Admin: 11/21/19 07:35 Dose: 1 drop Ondansetron HCl (Zofran) 4 mg IVPUSH Q6HR PRN PRN Reason: Nausea Last Admin: 11/17/19 17:54 Dose: 4 mg Psyllium Hydrophilic Mucilloid (Metamucil) 0.52 gm PO DAILY [facility] Last Admin: 11/21/19 07:33 Dose: 0.52 gm Risperidone (Risperidal) 0.5 mg PO BEDTIME [facility] Last Admin: 11/20/19 19:35 Dose: 0.5 mg Risperidone (Risperidal) 0.25 mg PO BEDTIME PRN PRN Reason: Agitation Simvastatin (Zocor) 20 mg PO BEDTIME [facility] Last Admin: 11/20/19 19:35 Dose: 20 mg Discontinued Medications Bumetanide (Bumex) 0.5 mg PO DAILY [facility] Bumetanide (Bumex) 1 mg PO ONETIME ONE Stop: 11/19/19 08:19 Last Admin: 11/19/19 08:24 Dose: 1 mg Ciprofloxacin/Dextrose 200 mg/ (Premix) 100 mls @ 100 mls/hr IV BID [facility] Last Admin: 11/18/19 07:47 Dose: 100 mls/hr Metoprolol Succinate (Toprol Xl) 50 mg PO DAILY [facility] Last Admin: 11/19/19 08:16 Dose: 50 mg Risperidone (Risperidal) 0.25 mg PO BEDTIME PRN PRN Reason: Agitation - Exam General: Reports: Alert, Cooperative, No Acute Distress HEENT: Reports: Mucous Membr. Moist/[place]ck: Reports: Supple, Trachea Midline, No Thyromegaly. Denies: Lymphadenopathy Lungs: Reports: Clear to Auscultation, Normal Respiratory Effort Cardiovascular: Reports: Regular Rate, No Murmurs, Irregular Rhythm GI/Abdominal Exam: Normal Bowel Sounds, Soft, Non-Tender, No Organomegaly, No Distention, No Mass Extremities: Non-Tender, No Pedal Edema, Normal Capillary Refill Skin: Reports: Warm, Dry, Intact
== END 2019-11-21 09:30 | DRG 640 ==
LOC: VM.MS 11:03
PROVIDERS: ADMIT Internal Medicine; ATTEND Internal Medicine
DX: E86.0 Dehydration (principal); E43 Unspecified severe protein-calorie malnutrition; I47.2 Ventricular tachycardia; N39.0 Urinary tract infection, site not specified; I50.22 Chronic systolic (congestive) heart failure; R44.3 Hallucinations, unspecified; I49.5 Sick sinus syndrome; I48.91 Unspecified atrial fibrillation; N18.3 Chronic kidney disease, stage 3 (moderate); E53.8 Deficiency of other specified B group vitamins; F41.9 Anxiety disorder, unspecified; F32.9 Major depressive disorder, single episode, unspecified; M10.9 Gout, unspecified; K58.9 Irritable bowel syndrome, unspecified; D64.9 Anemia, unspecified; D47.2 Monoclonal gammopathy; E87.5 Hyperkalemia; E11.9 Type 2 diabetes mellitus without complications; Z68.21 Body mass index [BMI] 21.0-21.9, adult
CPT/HCPCS: 36415; 80048; 80069; 83735; 85025; 97164-GP; A9270-GY; J0744; J2405; J3420; J7030

== ENCOUNTER 2020-10-07 10:00 | Inpatient (IN) | payer MEDICARE, BC ==
[2020-10-07] MEDS ORDERED: Flumazenil 0.1 MG/ML 5 ML MDV IVPUSH PRN (10:32)
[2020-10-07] MEDS ORDERED: Nitroglycerin 0.4 MG Tab.SL SL PRN (10:32)
[2020-10-07] MEDS ORDERED: Bisacodyl 10 MG Supp RECTAL PRN (10:32)
[2020-10-07] MEDS ORDERED: Sodium Chloride 0.9% 10 ML Syringe FLUSH PRN (10:32)
[2020-10-07] MEDS ORDERED: Acetaminophen 325 MG Tab PO PRN (11:19)
[2020-10-07] MEDS ORDERED: Acetaminophen 325 MG Tab PO SCH (12:00)
[2020-10-07] MEDS: diphenhydrAMINE 50 MG/ML SDV IVPUSH SCH ×2 (14:25→20:38)
[2020-10-07] MEDS ORDERED: DOXEPIN 3 MG PO SCH (20:00)
[2020-10-07] MEDS: HYDROmorphone 0.5 MG/0.5 ML Syringe IVPUSH SCH (20:37)
[2020-10-07] MEDS: Camphor/Menthol 0.5-0.5% Lotion 222 ML Bottle TOP SCH (20:49)
[2020-10-07] MEDS: DOXEPIN HCL PO SCH (20:50)
[2020-10-07] MEDS: Triamcinolone Acetonide 0.1% Crm 15 GM Tube TOP SCH (20:50)
[2020-10-08] MEDS: diphenhydrAMINE 50 MG/ML SDV IVPUSH PRN ×2 (00:27→08:32)
[2020-10-08] MEDS: HYDROmorphone 0.5 MG/0.5 ML Syringe IVPUSH PRN ×2 (02:10→16:17)
[2020-10-08] MEDS: diphenhydrAMINE 50 MG/ML SDV IVPUSH SCH ×3 (04:56→20:34)
[2020-10-08] MEDS: Camphor/Menthol 0.5-0.5% Lotion 222 ML Bottle TOP SCH (08:27)
[2020-10-08] MEDS: Triamcinolone Acetonide 0.1% Crm 15 GM Tube TOP SCH ×2 (08:28→20:35)
[2020-10-08] MEDS: HYDROmorphone 0.5 MG/0.5 ML Syringe IVPUSH SCH ×2 (08:28→20:34)
[2020-10-08] MEDS: Glycopyrrolate 0.2 MG/ML 2 ML SDV IVPUSH PRN (16:17)
[2020-10-08] MEDS: LORazepam 2 MG/ML SDV IVPUSH PRN (16:18)
[2020-10-08] MEDS ORDERED: Atropine 1% Ophth Soln 5 ML BOTTLE SL PRN (16:27)
--- NOTE | 2020-10-08 16:54 | PN ---
Progress Note for PARAG DAVIS Date: 10/08/2020 Room #: VM.222 SUBJECTIVE: This is an 89-year-old on end-of-life swing bed after COVID-19 infection caused severe renal failure and she had uremic itching. She also has acute on chronic systolic and diastolic heart failure and has not had a good response to Lasix. She is comfortable this morning. She is not in any respiratory distress. She is getting both scheduled and p.r.n. Dilaudid. She rested mostly during the night other than some upset stomach or stomach pain, but was relieved by the pain medications. She is also receiving IV Ativan. She denies any nausea this morning. She has had very poor oral intake, is not really able to swallow any pills right now, but is trying to drink a little water. Family is at bedside. She is responsive and does answer a few questions with yes or no. She denies itching today. She has been on scheduled Benadryl. OBJECTIVE: No vitals are being actively obtained. ASSESSMENT: 1. End-of-life cares for renal failure that occurred after a COVID-19 infection and also with heart failure exacerbation. Continue scheduled Dilaudid and Benadryl. We will add atropine for secretions as we also have IV Robinul, but we will need to start some subcu lines due to her IV status. This was discussed with nursing. 2. Longstanding anxiety. She has the Ativan available. 3. Hyponatremia related to heart failure. No further lab monitoring required. 4. Atrial fibrillation with rapid ventricular response. She is unable to take her oral metoprolol. I do not feel that it would provide her any comfort to give this IV. Her blood pressures had been quite low. 5. Cardiogenic shock. 6. Wounds with excoriations. No sign of active infection. She did receive some Ancef on acute care. We will continue topical agents. 7. Palliative cares. 8. Asthma. 9. Glaucoma. Eyedrops have been stopped. PLAN: The patient will continue end-of-life care. Family is visiting and always at bedside. They are also comfortable with this plan. MKA: 10/08/2020 16:32:10 MODL: 10/08/2020 16:45:10 /[id number]
[2020-10-08] MEDS: DOXEPIN HCL PO SCH (20:34)
[2020-10-09] MEDS: diphenhydrAMINE 50 MG/ML SDV IVPUSH SCH ×2 (04:09→13:34)
[2020-10-09] MEDS: HYDROmorphone 0.5 MG/0.5 ML Syringe IVPUSH PRN ×4 (04:15→17:54)
[2020-10-09] MEDS: Camphor/Menthol 0.5-0.5% Lotion 222 ML Bottle TOP SCH ×2 (04:19→08:41)
[2020-10-09] MEDS: LORazepam 2 MG/ML SDV IVPUSH PRN ×3 (05:57→17:54)
[2020-10-09] MEDS: Triamcinolone Acetonide 0.1% Crm 15 GM Tube TOP SCH (08:42)
[2020-10-09] MEDS: HYDROmorphone 0.5 MG/0.5 ML Syringe IVPUSH SCH (08:42)
[2020-10-09] MEDS: diphenhydrAMINE 50 MG/ML SDV IVPUSH PRN ×2 (08:58→11:42)
[2020-10-09] MEDS: Glycopyrrolate 0.2 MG/ML 2 ML SDV IVPUSH PRN (17:56)
--- NOTE | 2020-10-09 20:41 | PCM.DCSUM1 ---
Discharge Summary - Hospital Course Brief History: 89 yo female admitted to swing bed for comfort cares following acute hospitalization for GENARO and CHF that were secondary to COVID-19 infection and not responsive to usual cares. - Discharge Data Discharge Date: 10/09/20 Discharge Disposition: 20 Condition: - Referral to Home Health Primary Care Physician: Beba Anderson DO - Patient Summary/Data Hospital Course: Patient was admitted to swing bed and provided medications for comfort. Her family remained at bedside throughout her stay. Her medications effectively controlled any symptoms. She comfortably this evening with family at bedside. - Discharge Plan Home Medications: Home Meds Acetaminophen [Tylenol] 650 mg PO TID PRN 12/30/15 [History] Nitroglycerin [Nitrostat] 0.4 mg SL ASDIRECTED PRN 12/30/15 [History] Doxepin HCl 3 mg PO BEDTIME 10/04/20 [History] Triamcinolone Acetonide [Kenalog 0.1% Crm] 1 applic TOP BID 10/04/20 [History] Camphor/Menthol [Sarna Lotion] 10 ml TOP BID 10/07/20 [History] Glycopyrrolate 0.4 mg IVPUSH Q2H PRN 10/07/20 [History] HYDROmorphone HCl/PF [Dilaudid 0.5 mg/0.5 ml Syringe] 0.25 mg IVPUSH Q12H 10/07/20 [History] HYDROmorphone HCl/PF [Dilaudid 0.5 mg/0.5 ml Syringe] 0.25 mg IVPUSH Q4H PRN 10/07/20 [History] LORazepam [Ativan] 1 mg IVPUSH Q4H PRN 10/07/20 [History] Sodium Chloride 0.9 % (Flush) [[place] Sodium Chlor Flush] 10 ml FLUSH ASDIRECTED PRN 10/07/20 [History] bisacodyL [Bisacodyl] 10 mg RECTAL DAILY PRN 10/07/20 [History] diphenhydrAMINE HCL [Diphenhydramine HCl] 25 mg IVPUSH Q4H PRN 10/07/20 [History] diphenhydrAMINE HCL [Diphenhydramine HCl] 25 mg IVPUSH Q8H 10/07/20 [History] - Discharge Summary/Plan Comment DC Time >30 min.: No - General Info Subjective Update: Patient was not seen. Notified by nursing that time of was 6:35 pm. - Patient Data Vitals - Most Recent: Last Vital Signs Temp 38.0 C 10/09/20 10:00 Pulse Resp BP Pulse Ox Weight - Most Recent: 70.307 kg I&O - Last 24 hours: Intake & Output 10/09/20 10/09/20 10/09/20 06:59 14:59 22:59 Intake Total 0 0 Balance 0 0 Med Orders - Current: Current Medications Discontinued Medications Acetaminophen (Tylenol) 650 mg PO TID [place] Acetaminophen (Tylenol) 650 mg PO TID PRN PRN Reason: Pain Atropine Sulfate (Atropine 1% Oph Soln) 0 ml SL Q2H PRN PRN Reason: Edema Bisacodyl (Dulcolax) 10 mg RECTAL DAILY PRN PRN Reason: Constipation Camphor/Menthol (Sarna Lotion) 0 ml TOP BID [facility] Last Admin: 10/09/20 08:41 Dose: Not Given Documented by: Diphenhydramine HCl (Benadryl) 25 mg IVPUSH Q4H PRN PRN Reason: Itching Last Admin: 10/09/20 11:42 Dose: 25 mg Documented by: Diphenhydramine HCl (Benadryl) 25 mg IVPUSH Q8H [facility] Last Admin: 10/09/20 13:34 Dose: 25 mg Documented by: Glycopyrrolate (Glycopyrrolate) 0.4 mg IVPUSH Q2H PRN PRN Reason: Other Last Admin: 10/09/20 17:56 Dose: 0.4 mg Documented by: Hydromorphone HCl (Dilaudid) 0.25 mg IVPUSH Q4H PRN PRN Reason: Pain Last Admin: 10/09/20 11:41 Dose: 0.25 mg Documented by: Hydromorphone HCl (Dilaudid) 0.25 mg IVPUSH Q12H [facility] Last Admin: 10/09/20 08:42 Dose: 0.25 mg Documented by: Hydromorphone HCl (Dilaudid) 0.5 mg IVPUSH Q4H PRN PRN Reason: Pain Last Admin: 10/09/20 17:54 Dose: 0.5 mg Documented by: Lorazepam (Ativan) 1 mg IVPUSH Q4H PRN PRN Reason: Anxiety Last Admin: 10/09/20 17:54 Dose: 1 mg Documented by: Nitroglycerin (Nitrostat) 0.4 mg SL ASDIRECTED PRN PRN Reason: chest pain, angina Doxepin 3mg (Own (Supply)) 0 mg PO BEDTIME [facility] Non-Formulary Medication (Doxepin Hcl [Doxepin Hcl]) 0 mg PO BEDTIME [facility] Last Admin: 10/08/20 20:34 Dose: Not Given Documented by: Sodium Chloride (Saline Flush) 10 ml FLUSH ASDIRECTED PRN PRN Reason: Keep Vein Open Triamcinolone Acetonide (Triamcinolone Acetonide 0.1% Crm) 0 gm TOP BID [facility] Last Admin: 10/09/20 08:42 Dose: Not Given Documented by:
== END 2020-10-09 18:35 | disposition expired | DRG 951 ==
LOC: VM.MS 10:33
PROVIDERS: ADMIT Internal Medicine; ATTEND Internal Medicine
DX: Z51.5 Encounter for palliative care (principal); I50.43 Acute on chronic combined systolic (congestive) and diastolic (congestive) heart failure; N17.9 Acute kidney failure, unspecified; E87.1 Hypo-osmolality and hyponatremia; L29.9 Pruritus, unspecified; R57.0 Cardiogenic shock; F41.9 Anxiety disorder, unspecified; F32.9 Major depressive disorder, single episode, unspecified; I08.0 Rheumatic disorders of both mitral and aortic valves; J45.909 Unspecified asthma, uncomplicated; E53.8 Deficiency of other specified B group vitamins; I25.10 Atherosclerotic heart disease of native coronary artery without angina pectoris; K21.9 Gastro-esophageal reflux disease without esophagitis; E78.5 Hyperlipidemia, unspecified; I11.0 Hypertensive heart disease with heart failure; K58.9 Irritable bowel syndrome, unspecified; E11.42 Type 2 diabetes mellitus with diabetic polyneuropathy; M85.80 Other specified disorders of bone density and structure, unspecified site; Z96.651 Presence of right artificial knee joint; G47.34 Idiopathic sleep related nonobstructive alveolar hypoventilation; D47.2 Monoclonal gammopathy; I48.91 Unspecified atrial fibrillation; H40.9 Unspecified glaucoma; Z86.16 Personal history of COVID-19; Z79.899 Other long term (current) drug therapy; I25.2 Old myocardial infarction; Z86.39 Personal history of other endocrine, nutritional and metabolic disease; Z86.711 Personal history of pulmonary embolism; Z87.440 Personal history of urinary (tract) infections; Z90.49 Acquired absence of other specified parts of digestive tract; Z82.49 Family history of ischemic heart disease and other diseases of the circulatory system; Z79.82 Long term (current) use of aspirin; Z98.890 Other specified postprocedural states; Z79.01 Long term (current) use of anticoagulants; Z91.09 Other allergy status, other than to drugs and biological substances; Z88.5 Allergy status to narcotic agent; Z88.8 Allergy status to other drugs, medicaments and biological substances; Z88.2 Allergy status to sulfonamides; Z90.89 Acquired absence of other organs; Z98.1 Arthrodesis status; Z85.828 Personal history of other malignant neoplasm of skin; Z98.41 Cataract extraction status, right eye; Z98.42 Cataract extraction status, left eye
CPT/HCPCS: J1170; J1200; J2060; J3490